=== PATIENT | female | born 1945 ===

== ENCOUNTER 2023-06-08 14:07 | Outpatient (AMB) | payer OTHER, SELFPAY ==
--- NOTE | 2023-06-08 14:08 | A.OFFVIS_ITS ---
Intake Vital Signs 06/08/23 14:25 Weight 153 lb BP 123/59 L Blood Pressure Location Rt brachial Position Sitting Pulse 74 Intake Visit Reasons: umbilical hernia w/out obstruction and gangreen Intake Note: This patient presents for an assessment of an umbilical hernia without obstruction or gangreen. Patient c/o;Onset 2 years ago, umbilical region, occasional vomiting, denies pain. Wire Lather Required: Yes Wire Lather Name: Patient declined color grinder Accompanied by: Daughter Allergies Penicillins Allergy (Severe, Verified 06/08/23 14:27) Rash Medication List - Last Reviewed 06/08/23 by DIXIE Bo albuterol sulfate 90 mcg/actuation 2 puffs inhalation Q4H PRN albuterol sulfate mg inhalation Q4H PRN blood pressure test kit-large As directed diltiazem HCl ER 120 mg PO QAM insulin aspart U-100 (Novolog U-100 Insulin aspart) 7 units subcut BID insulin glargine (Lantus Solostar U-100 Insulin) 25 units subcut BEDTIME levothyroxine 125 mcg PO QAM losartan 50 mg PO DAILY metformin 500 mg PO DAILY pantoprazole 40 mg PO DAILY HPI umbilical hernia w/out obstruction and gangreen HPI Details 77-year-old female referred for an umbilical hernia. The patient says she has notice this umbilical mass for over 2 years now. She does state that this seems to be getting bigger in size. There has been note of some skin changes as well. She admits to occasional discomfort and pain on the area. She actually had been living in [place] but was brought to [place] her daughter to be taken care of. She seems to have some beginning dementia although she is still active and conversant. She denies any cardiac problems. She remains active and ambulates but still bit of difficulty because of arthritis. [facility] Medical History (Updated 06/08/23 @ 14:34 by Mike Penny MD) Arthritis Hypertension Thyroid disease Umbilical hernia Surgical History (Updated 06/08/23 @ 14:30 by DIXIE Bo) History of carpal tunnel surgery History of female sterilization History of shoulder surgery Family History (Updated 06/08/23 @ 14:20 by DIXIE Bo) Other Colon cancer Social History (Updated 06/08/23 @ 14:19 by DIXIE Bo) Alcohol intake: never Patient Tobacco Use Status: Never used Tobacco Review of Systems Const Denies chills and Denies fever(s) Card Denies chest pain, Denies dyspnea and Denies dyspnea on exertion Resp Denies cough, Denies dyspnea and Denies dyspnea on exertion GI Denies hematochezia and Denies change in bowel habits Denies hematuria Musc Denies back pain and Denies limited range of motion Neuro Denies focal weakness and Denies convulsions Psych Denies depression and Denies mood swings Physical Exam Vital Signs: Last Vital Signs Pulse 74 06/08/23 14:25 BP 123/59 L 06/08/23 14:25 Const General: comfortable and no acute distress Orientation/consciousness: patient oriented x3 Neck Neck: Yes no lymphadenopathy Resp Auscultation: clear to auscultation bilaterally Cardio Rhythm: regular rhythm GI Other: Soft, with a large umbilical hernia about 3.5 cm, nontender but with some overlying skin changes, partially reducible Palpation (GI): Soft to palpation, nontender and no guarding Neuro General: patient oriented x3 Assessment & Plan Assessment & Plan (1) Umbilical hernia: Code(s): K42.9 - Umbilical hernia without obstruction or gangrene Plan: She has an umbilical hernia as described above. She has some discomfort and increased in size and there is note of some overlying skin changes. I explained to her the option of proceeding with her umbilical hernia repair with possible mesh. I discussed with her the technique of this procedure. I reviewed the risks including but not limited to bleeding, infections, bowel injury, recurrence, inherent risks of anesthesia, as well as the benefits and alternat karol. She had wanted to proceed. Her daughter was with her during the visit and according to her, she seems to be relatively healthy for her age. Coding Level of Care Code New Pt Level 3 (27632) Diagnoses Umbilical hernia K42.9
[2023-06-08 14:25] VITALS: BP 123/59; PULSE 74
== END 2023-06-08 14:32 | disposition home or self-care (01) ==
PROVIDERS: Visit Provider Surgery
DX: K42.9 Umbilical hernia without obstruction or gangrene (principal)
CPT/HCPCS: 99203

== ENCOUNTER → 2023-06-08 14:07 | Outpatient (BNVA) | payer OTHER, SELFPAY | PROVIDERS: Visit Provider Surgery | DX: K42.9 Umbilical hernia without obstruction or gangrene (principal) | CPT/HCPCS: 99202 ==

== ENCOUNTER 2023-06-12 15:44 | Observation (INO) | payer MEDICARE, OTHER, SELFPAY ==
[2023-06-12] VITALS (10 sets, daily range): BP systolic 110–142; BP diastolic 41–59; PULSE 71–91; RESP 16–20; TEMP 37; O2SAT 95–100
--- NOTE | ~2023-06-12 | XR_ITS ---
EXAMINATION: XR CHEST CLINICAL INFORMATION: Pneumonia COMPARISON: None available. TECHNIQUE: Frontal view of the chest was obtained. FINDINGS: Elevated right hemidiaphragm. No convincing evidence for infiltrate here. The lung gan are grossly clear. The cardiac silhouette is within normal limits for AP projection. Calcification in the aortic arch. No effusion XR/XR chest 1V IMPRESSION: Elevated right hemidiaphragm. No acute finding the lungs.
--- NOTE | 2023-06-12 16:18 | ECG_ITS ---
Test Reason : SYNCOPE Blood Pressure : / mmHG Vent. Rate : 076 BPM Atrial Rate : 076 BPM P-R Int : 156 ms QRS Dur : 066 ms QT Int : 386 ms P-R-T Axes : 052 -04 020 degrees QTc Int : 434 ms Normal sinus rhythm Cannot rule out Anterior infarct , age undetermined Abnormal ECG No previous ECGs available Referred By: Lul Rodrigeuz Electronically Signed By:TONY DIALLO
[2023-06-12 16:40] LABS: MANUAL DIFF FLAG NO
[2023-06-12 16:44] LABS: Basophils Percent Auto 0.3 % (0-2); Eosinophils Absolute Auto 0.1 X10*3/uL (0.0-0.4); Eosinophils Percent Auto 0.5 % (0-4); Hemoglobin 11.4 g/dl (12.0-16.0); Imm Gran Abs Auto 0.06 X10*3/uL (0.00-0.03); Imm Gran Pct Auto 0.6 % (0.0-0.4); Lymphocytes Absolute Auto 1.7 X10*3/uL (1.2-4.9); Lymphocytes Percent Auto 17.2 % (20-40); Mean Corpuscular HGB Conc 32.6 g/dl (31.0-35.0); Mean Corpuscular Hemoglobin 26.8 pg (27.0-33.0); Mean Corpuscular Volume 82.4 fL (80.0-98.0); Mean Platelet Volume 9.2 fL (9.4-12.3); Monocytes Absolute Auto 0.7 X10*3/uL (0.1-1.2); Monocytes Percent Auto 7.6 % (2-11); Neutrophils Absolute Auto 7.1 x10*3/uL (2.0-8.3); Neutrophils Percent Auto 73.8 % (45-73); Platelet Count 310 X10*3/uL (160-400); Red Blood Count 4.25 X10*6/uL (4.20-5.50); Red Cell Distribution Width 14.3 % (11.0-16.0); White Blood Count 9.6 X10*3/uL (4.8-10.8)
[2023-06-12 16:53] LABS: Prothrombin Time 12.5 SEC (11.1-13.3)
[2023-06-12 16:56] LABS: Partial Thromboplastin Time 30.4 SEC (26.0-36.4)
[2023-06-12 16:59] LABS: Alanine Aminotransferase 7 U/L (0-31); Albumin Level 3.5 g/dL (3.5-5.0); Alkaline Phosphatase 76 U/L (39-117); Anion Gap 18 (12-20); Aspartate Amino Transferase 11 U/L (5-31); Bilirubin Total 0.3 mg/dL (0.0-1.0); Blood Urea Nitrogen 18 mg/dL (9-16); Calcium 9.8 mg/dL (8.4-10.2); Carbon Dioxide 17 mmol/L (22-29); Chloride 102 mmol/L (96-108); Creatinine Clr Calc Pharmacy 52.8; Estimated Glomerular Filt Rate > 60; Glucose Random 159 mg/dL (60-115); Potassium 4.2 mmol/L (3.3-5.1); Sodium 133 mmol/L (135-145); Total Protein 6.8 g/dL (6.5-8.0)
[2023-06-12 17:05] LABS: B Type Natriuretic Peptide 84 pg/mL (<100)
[2023-06-12] MEDS: 0.9 % Sodium Chloride 1,000 ML 999 ML IV (17:15)
[2023-06-12 17:25] LABS: Glucose, Whole Blood 154 mg/dL (60-115)
--- NOTE | 2023-06-12 17:56 | ED.GENADULT ---
HPI - General Adult General Chief complaint: Syncope Stated complaint: SYNCOPAL EPISODE Time Seen by Provider: 06/12/23 16:18 Source: patient and family (Daughter) Mode of arrival: ambulatory Limitations: no limitations History of Present Illness HPI narrative: 77-year-old female with pmh of DM, hypothryoid, asthma, and cholesterol presents to the ED for syncopal episode. Daughter states her and patient were shopping at [employer] and than patient stated she did not feel good and than passed out. patient states she caughter mother and slowyl brought her to the the ground. Daughter states patient did not her hit her head on the ground. Daughter denies any she has activity. Patient presently states she is asymptomatic and feels well. Daughter and patient states she did eat breakfast was drinking water. Patient denies having any chest pain, abdominal pain, or headache before passing out Related Data Home Medications Medication Instructions Recorded Confirmed albuterol sulfate 2.5 mg/3 mL mg inhalation Q4H PRN wheezing 06/08/23 06/08/23 (0.083 %) solution for nebulization albuterol sulfate 90 mcg/actuation 2 puff inhalation Q4H PRN 06/08/23 06/08/23 aerosol inhaler blood pressure test kit-large #1 ea 06/08/23 06/08/23 diltiazem HCl 120 mg capsule,24 120 mg PO QAM 06/08/23 06/08/23 hr,extended release insulin aspart U-100 100 unit/mL 7 unit subcut BID 06/08/23 subcutaneous solution (Novolog U-100 Insulin aspart) insulin glargine 100 unit/mL (3 25 unit subcut BEDTIME 06/08/23 mL) subcutaneous pen (Lantus Solostar U-100 Insulin) levothyroxine 125 mcg tablet 125 mcg PO QAM 06/08/23 06/08/23 losartan 50 mg tablet 50 mg PO DAILY 06/08/23 06/08/23 metformin 500 mg tablet 500 mg PO DAILY 06/08/23 pantoprazole 40 mg tablet,delayed 40 mg PO DAILY 06/08/23 06/08/23 release Allergies Allergy/AdvReac Type Severity Reaction Status Date / Time Penicillins Allergy Severe Rash Verified 06/08/23 14:27 Review of Systems Review of Systems: syconpe Yes all other systems are reviewed and are negative [facility] Past Medical History Medical History (Updated 06/13/23 @ 01:05 by KATIE Crenshaw) Arthritis Hypertension Thyroid disease Umbilical hernia Surgical History (Updated 06/08/23 @ 14:30 by DIXIE Bo) History of carpal tunnel surgery History of female sterilization History of shoulder surgery Family History Family History (Updated 06/08/23 @ 14:20 by DIXIE Bo) Other Colon cancer Social History Social History (Updated 06/08/23 @ 14:19 by DIXIE Bo) Alcohol intake: never Patient Tobacco Use Status: Never used Tobacco Smoked in Last 30 Days: No Use of substances other than those prescribed or required for medical reasons: No Advance Directives: No Advance Directives Information Provided: No Physical Exam ED Vital Signs: Vital Signs - 24 hr 06/12/23 15:50 06/12/23 15:54 06/12/23 16:36 Temperature 98.6 F Pulse Rate 75 71 Respiratory Rate 18 Blood Pressure 115/41 L 110/48 L Pulse Oximetry 98 Oxygen Delivery Method Room Air 06/12/23 16:37 06/12/23 16:39 06/12/23 18:39 Temperature 98.6 F Pulse Rate 82 81 73 Respiratory Rate 18 Blood Pressure 117/42 L 116/44 L 141/59 H Pulse Oximetry 98 Oxygen Delivery Method Room Air 06/12/23 19:10 06/12/23 21:03 06/12/23 21:04 Temperature Pulse Rate 80 86 Respiratory Rate 16 18 Blood Pressure 134/49 L 142/56 H Pulse Oximetry 96 95 96 Oxygen Delivery Method Room Air Room Air Room Air BMI result Body Mass Index 30.0 Const General: cooperative, healthy appearing, comfortable, no acute distress, well developed, alert, awake and Physically active Orientation/consciousness: oriented to person, oriented to place, oriented to time and patient oriented x3 HENMT Head: Yes normal to inspection, Yes No palpable skull fracture present, Yes normocephalic, Yes atraumatic and No abrasion Ears: hearing grossly normal bilaterally, external ears normal, TM's normal bilaterally, TM normal on the right, TM normal on the left, EAC's normal, mastoids normal and no periauricular adenopathy Eyes General: appearance normal, both eyes and all related structures Neck Neck: Yes normal visual inspection, Yes full ROM, Yes no lymphadenopathy, Yes no meningeal signs, Yes trachea midline, Yes supple, No anterior neck swelling and No tender Chest Chest palpation & inspection: normal inspection of the chest and normal palpation of entire chest wall Resp Effort & Inspection: normal respiratory effort and able to speak in complete sentences Auscultation: clear to auscultation bilaterally Cardio Jugular venous distension: no JVD Heart sounds: S1 normal heart sound present and S2 normal heart sound present GI Inspection: Yes normal to inspection and No abdominal wall ecchymosis Palpation (GI): Soft to palpation, not firm, nontender, no guarding and not rigid General: No CVA tenderness and Yes no CVA tenderness Back/Spine/Pelvis Back: no CVA tenderness, No CVA tenderness and No back tenderness Skin General skin exam: no rashes or lesions noted and elasticity normal Neuro General: oriented to person, oriented to place, oriented to time, patient oriented x3, gait normal, tone normal, moves all extremities, Normal light touch and pain sensation, no meningeal signs, no focal motor deficits, CN's II-XI intact bilaterally and normal sensation to monofilament Extrem General: Yes normal to inspection and Yes full ROM Psych Appearance: grossly normal, well kempt and not disheveled Medications Administered Generic Name Dose Route Start Last Admin Trade Name Freq PRN Reason Stop Dose Admin Enoxaparin Sodium 40 mg 06/12/23 22:00 06/12/23 22:17 Enoxaparin Sodium 40 Mg/0.4 Ml Syringe SUBCUT 40 mg Q24H YAMEL Administration Sodium Chloride 1,000 mls @ 100 mls/hr 06/12/23 21:30 06/12/23 22:12 Ns IVCONT 100 mls/hr .Q10H YAMEL Administration Discontinued Medications Generic Name Dose Route Start Last Admin Trade Name Freq PRN Reason Stop Dose Admin Sodium Chloride 1,000 mls @ 999 mls/hr 06/12/23 16:18 06/12/23 22:11 Ns IV 06/12/23 17:18 Infused .Q1H1M STA Infusion Medical Decision Making Medical Decision Making [place] Narrative: And the 7 year female presents to the ED for syncope. Patient syncopized in from the daughter. Daughter called mother before she fell to the ground. Daughter denies patient hitting her head on the ground having any seizure activity. Initial medical workup normal. Patient to be admitted for syncope. No signs of infection. Neuro exam intact Differential Diagnosis Differential Diagnoses: The differential diagnosis associated with the presentation includes (Myocardial infarction, dehydration, pneumonia UTI anemia, stroke,PE) Admission/Observation Consideration of admission/observation: Escalation of care including admission/observation considered Consult Healthcare Provider Management of the patient was discussed with: Enchilada Maker ( [facility]) Lab Data MDM Lab Attestation statement: I reviewed the patient's lab results. 06/12/23 16:35 06/12/23 16:35 Labs: Lab Results 06/12/23 06/12/23 06/12/23 Range/Units 16:35 16:35 16:35 WBC 9.6 (4.8-10.8) X10*3/uL RBC 4.25 (4.20-5.50) X10*6/uL Hgb 11.4 L (12.0-16.0) g/dl Hct 35.0 L (37.0-47.0) % MCV 82.4 (80.0-98.0) fL MCH 26.8 L (27.0-33.0) pg MCHC 32.6 (31.0-35.0) g/dl RDW 14.3 (11.0-16.0) % Plt Count 310 (160-400) X10*3/uL MPV 9.2 L (9.4-12.3) fL Immature Gran % (Auto) 0.6 H (0.0-0.4) % Neut % (Auto) 73.8 H (45-73) % Lymph % (Auto) 17.2 L (20-40) % [place] % (Auto) 7.6 (2-11) % Eos % (Auto) 0.5 (0-4) % Baso % (Auto) 0.3 (0-2) % Lymph # (Auto) 1.7 (1.2-4.9) X10*3/uL [place] # (Auto) 0.7 (0.1-1.2) X10*3/uL Eos # (Auto) 0.1 (0.0-0.4) X10*3/uL Baso # (Auto) 0.0 (0.0-0.2) X10*3/uL Abs Immat Gran (auto) 0.06 H (0.00-0.03) X10*3/uL Absolute Neuts (auto) 7.1 (2.0-8.3) x10*3/uL Absolute Nucleated RBC 0.000 (0.0-0.012) X10*3/uL Nucleated RBC % (auto) 0.0 (0.0-0.2) /100WBC PT 12.5 (11.1-13.3) SEC INR 1.0 (0.9-1.1) APTT 30.4 (26.0-36.4) SEC Sodium 133 L (135-145) mmol/L Potassium 4.2 (3.3-5.1) mmol/L Chloride 102 (96-108) mmol/L Carbon Dioxide 17 L (22-29) mmol/L Anion Gap 18 (12-20) BUN 18 H (9-16) mg/dL Creatinine 0.81 (0.5-1.4) mg/dL Estim Creat Clear Calc 52.8 Estimated GFR > 60 POC Glucose (60-115) mg/dL Random Glucose 159 H (60-115) mg/dL Calcium 9.8 (8.4-10.2) mg/dL Total Bilirubin 0.3 (0.0-1.0) mg/dL AST 11 (5-31) U/L ALT 7 (0-31) U/L Alkaline Phosphatase 76 (39-117) U/L Troponin I High Sens (<3.5-17.0) ng/L B-Natriuretic Peptide (<100) pg/mL Total Protein 6.8 (6.5-8.0) g/dL Albumin 3.5 (3.5-5.0) g/dL Urine Color Urine Appearance Urine pH (5.0-9.0) Ur Specific [place] (1.005-1.025) Urine Protein (Neg-Trace) mg/dL Urine Glucose (UA) (Negative) mg/dL Urine Ketones (Negative) mg/dL Urine Blood (Negative) Urine Nitrite (Negative) Ur Leukocyte Esterase (Negative) Urine RBC (0-2) /HPF Urine WBC (0-5) /HPF Ur Squamous Epith Cells (0-2) /HPF Urine Bacteria (None Seen) Hyaline Casts (0-2) /LPF 06/12/23 06/12/23 06/12/23 Range/Units 16:35 16:35 17:21 WBC (4.8-10.8) X10*3/uL RBC (4.20-5.50) X10*6/uL Hgb (12.0-16.0) g/dl Hct (37.0-47.0) % MCV (80.0-98.0) fL MCH (27.0-33.0) pg MCHC (31.0-35.0) g/dl RDW (11.0-16.0) % Plt Count (160-400) X10*3/uL MPV (9.4-12.3) fL Immature Gran % (Auto) (0.0-0.4) % Neut % (Auto) (45-73) % Lymph % (Auto) (20-40) % [place] % (Auto) (2-11) % Eos % (Auto) (0-4) % Baso % (Auto) (0-2) % Lymph # (Auto) (1.2-4.9) X10*3/uL [place] # (Auto) (0.1-1.2) X10*3/uL Eos # (Auto) (0.0-0.4) X10*3/uL Baso # (Auto) (0.0-0.2) X10*3/uL Abs Immat Gran (auto) (0.00-0.03) X10*3/uL Absolute Neuts (auto) (2.0-8.3) x10*3/uL Absolute Nucleated RBC (0.0-0.012) X10*3/uL Nucleated RBC % (auto) (0.0-0.2) /100WBC PT (11.1-13.3) SEC INR (0.9-1.1) APTT (26.0-36.4) SEC Sodium (135-145) mmol/L Potassium (3.3-5.1) mmol/L Chloride (96-108) mmol/L Carbon Dioxide (22-29) mmol/L Anion Gap (12-20) BUN (9-16) mg/dL Creatinine (0.5-1.4) mg/dL Estim Creat Clear Calc Estimated GFR POC Glucose 154 H (60-115) mg/dL Random Glucose (60-115) mg/dL Calcium (8.4-10.2) mg/dL Total Bilirubin (0.0-1.0) mg/dL AST (5-31) U/L ALT (0-31) U/L Alkaline Phosphatase (39-117) U/L Troponin I High Sens 5.0 (<3.5-17.0) ng/L B-Natriuretic Peptide 84 (<100) pg/mL Total Protein (6.5-8.0) g/dL Albumin (3.5-5.0) g/dL Urine Color Urine Appearance Urine pH (5.0-9.0) Ur Specific [place] (1.005-1.025) Urine Protein (Neg-Trace) mg/dL Urine Glucose (UA) (Negative) mg/dL Urine Ketones (Negative) mg/dL Urine Blood (Negative) Urine Nitrite (Negative) Ur Leukocyte Esterase (Negative) Urine RBC (0-2) /HPF Urine WBC (0-5) /HPF Ur Squamous Epith Cells (0-2) /HPF Urine Bacteria (None Seen) Hyaline Casts (0-2) /LPF 06/12/23 06/12/23 Range/Units 19:50 19:55 WBC (4.8-10.8) X10*3/uL RBC (4.20-5.50) X10*6/uL Hgb (12.0-16.0) g/dl Hct (37.0-47.0) % MCV (80.0-98.0) fL MCH (27.0-33.0) pg MCHC (31.0-35.0) g/dl RDW (11.0-16.0) % Plt Count (160-400) X10*3/uL MPV (9.4-12.3) fL Immature Gran % (Auto) (0.0-0.4) % Neut % (Auto) (45-73) % Lymph % (Auto) (20-40) % [place] % (Auto) (2-11) % Eos % (Auto) (0-4) % Baso % (Auto) (0-2) % Lymph # (Auto) (1.2-4.9) X10*3/uL [place] # (Auto) (0.1-1.2) X10*3/uL Eos # (Auto) (0.0-0.4) X10*3/uL Baso # (Auto) (0.0-0.2) X10*3/uL Abs Immat Gran (auto) (0.00-0.03) X10*3/uL Absolute Neuts (auto) (2.0-8.3) x10*3/uL Absolute Nucleated RBC (0.0-0.012) X10*3/uL Nucleated RBC % (auto) (0.0-0.2) /100WBC PT (11.1-13.3) SEC INR (0.9-1.1) APTT (26.0-36.4) SEC Sodium (135-145) mmol/L Potassium (3.3-5.1) mmol/L Chloride (96-108) mmol/L Carbon Dioxide (22-29) mmol/L Anion Gap (12-20) BUN (9-16) mg/dL Creatinine (0.5-1.4) mg/dL Estim Creat Clear Calc Estimated GFR POC Glucose (60-115) mg/dL Random Glucose (60-115) mg/dL Calcium (8.4-10.2) mg/dL Total Bilirubin (0.0-1.0) mg/dL AST (5-31) U/L ALT (0-31) U/L Alkaline Phosphatase (39-117) U/L Troponin I High Sens 3.9 (<3.5-17.0) ng/L B-Natriuretic Peptide (<100) pg/mL Total Protein (6.5-8.0) g/dL Albumin (3.5-5.0) g/dL Urine Color Yellow Urine Appearance Clear Urine pH 6.0 (5.0-9.0) Ur Specific [place] <= 1.005 (1.005-1.025) Urine Protein Negative (Neg-Trace) mg/dL Urine Glucose (UA) Negative (Negative) mg/dL Urine Ketones Negative (Negative) mg/dL Urine Blood Negative (Negative) Urine Nitrite Negative (Negative) Ur Leukocyte Esterase Trace H (Negative) Urine RBC 0-2 (0-2) /HPF Urine WBC 0-5 (0-5) /HPF Ur Squamous Epith Cells 0-2 (0-2) /HPF Urine Bacteria None Seen (None Seen) Hyaline Casts 0-2 (0-2) /LPF Independent Interpretation I performed an independent interpretation of an: EKG (Normal sinus rhythm. Ventricular rate 76. Pr interval 156. QRS 66 pr QTC. negative STEMI) and Plain X-Ray Radiology Impression Discussion of test interpretation with radiology: I have reviewed the radiologist's reading. Independent Historian Clinical information obtained from an independent historian. History obtained from or confirmed by: Other (Daughter) External Record Review External record reviewed: Other (Prior ED visit) Discharge Plan Discharge Clinical Impression: Syncope Patient Disposition: Admitted As Inpatient
[2023-06-12 20:01] LABS: Appearance Urine Clear; Color Urine Yellow; Glucose Urine UA Negative (Negative); Leukocyte Esterase Urine Trace (Negative); Nitrite Urine Negative (Negative); Specific Gravity - Urine <= 1.005 (1.005-1.025); UMIC TRIGGER UACC YES; Urine Blood Negative (Negative); Urine Ketones Negative (Negative); Urine Protein Negative (Neg-Trace)
[2023-06-12 20:25] LABS: Troponin-I High Sensitivity 3.9 ng/L (<3.5-17.0)
[2023-06-12 20:31] LABS: Bacteria Urine None Seen (None Seen); Hyaline Casts Urine 0-2 /LPF (0-2); RBC Urine 0-2 /HPF (0-2); Squamous Epithelial Cell Urine 0-2 /HPF (0-2); WBC Urine 0-5 /HPF (0-5)
--- NOTE | 2023-06-12 20:35 | P.HPHOSP_ITS ---
Patient seen and examined at bedside. I agree with BAKARI. patient comes in with syncope. After reviewing symptoms and signs patient likely had a vasovagal syncope. Will admit to telemetry. For full H&P please see below History of Present Illness Date of Service: 06/12/23 Attending physician on admission: Orly Hialrio Chief Complaint: Syncope Pt is a 77-year-old female with a PMH significant for?insulin-dependent diabetes type 2, hypothyroidism, HTN, umbilical hernia, and mild intermittent asthma who presents to the ED after having a syncopal episode. Patient and her daughter were out shopping early in the afternoon, 1st at [employer] and then at [employer] where the patient began to ?feel unwell.? [place] hot, dizzy, and sweaty. Daughter says that the patient's face became pale and she then fainted. Daughter was by her side and her, gently lowing her to the ground. Denies any head strike. Staff at the store immediately called for an ambulance. Patient had LOC for approximately 2-3 minutes and then awoke slightly confused; confusion lasted another 2-3 minutes before patient began to recover. Patient's daughter denies any seizure-like activity or postictal phase. No loss of bowel or bladder function. Patient denies chest pain/pressure, palpitations. No hortencia rtness of breath. Denies headache or vision changes. Patient denies fever, chills, nausea, vomiting, diarrhea, abdominal pain. No recent illnesses or GI losses from vomiting or diarrhea. Daughter denies mother has any significant cardiology history, though reports remembering her mother suffering from ?angina pectoralis? many decades ago in [place]. Daughter also notes that patient has been having mild dementia-like symptoms for the past year such as short-term memory loss, forgetting names, mis-identifying family members. Patient has been eating well but not drinking much in the way of fluids. Patient currently has no acute medical complaints, says she is back to baseline and feels fine. In the ED patient was afebrile but slightly hypotensive as low as 115/41. Labs were largely reassuring: significant for H&H of 11.4/35.0, POC 154. Coags WNL. Renal function baseline. Hepatic function baseline. BNP WNL at 84. Troponins negative at 5.0 with repeat 3.9. UA negative for UTI. CXR showed elevated right hemidiaphragm but no acute findings in the lungs. EKG demonstrated normal sinus rhythm without evidence of acute ischemia. Pt was treated with IVF. Pt will be admitted to the hospital under observation for further evaluation of syncope. Review of Systems Review of Systems: Syncopal episode Prodrome of lightheadedness, dizziness, diaphoresis Denies head strike No headache, vision changes Denies chest pain/pressure, palpitations No shortness of breath Denies fever, chills, nausea, vomiting, abdominal pain No recent illnesses Yes all other systems are reviewed and are negative [facility] Medical History (Updated 06/12/23 @ 21:32 by KATIE Rouse) Arthritis Hypertension Thyroid disease Umbilical hernia Family History (Updated 06/08/23 @ 14:20 by DIXIE Bo) Other Colon cancer Surgical History (Updated 06/08/23 @ 14:30 by DIXIE Bo) History of carpal tunnel surgery History of female sterilization History of shoulder surgery Social History (Updated 06/08/23 @ 14:19 by DIXIE Bo) Alcohol intake: never Patient Tobacco Use Status: Never used Tobacco Smoked in Last 30 Days: No Use of substances other than those prescribed or required for medical reasons: No Advance Directives: No Advance Directives Information Provided: No Meds Allergies Allergy/AdvReac Type Severity Reaction Status Date / Time Penicillins Allergy Severe Rash Verified 06/08/23 14:27 Home Medications Medication Instructions Recorded Confirmed Last Taken Type albuterol sulfate 2.5 mg/3 mL mg inhalation Q4H PRN wheezing 06/08/23 06/08/23 Unknown History (0.083 %) solution for nebulization albuterol sulfate 90 mcg/actuation 2 puff inhalation Q4H PRN 06/08/23 06/08/23 Unknown History aerosol inhaler blood pressure test kit-large #1 ea 06/08/23 06/08/23 Unknown History diltiazem HCl 120 mg capsule,24 120 mg PO QAM 06/08/23 06/08/23 Unknown History hr,extended release insulin aspart U-100 100 unit/mL 7 unit subcut BID 06/08/23 Unknown History subcutaneous solution (Novolog U-100 Insulin aspart) insulin glargine 100 unit/mL (3 25 unit subcut BEDTIME 06/08/23 Unknown History mL) subcutaneous pen (Lantus Solostar U-100 Insulin) levothyroxine 125 mcg tablet 125 mcg PO QAM 06/08/23 06/08/23 Unknown History losartan 50 mg tablet 50 mg PO DAILY 06/08/23 06/08/23 Unknown History metformin 500 mg tablet 500 mg PO DAILY 06/08/23 Unknown History pantoprazole 40 mg tablet,delayed 40 mg PO DAILY 06/08/23 06/08/23 Unknown History release Physical Exam Vital Signs and Narrative: Vital Signs: Last Vital Signs Temp 98.6 F 06/12/23 18:39 Pulse 80 06/12/23 19:10 Resp 16 06/12/23 19:10 BP 134/49 L 06/12/23 19:10 Pulse Ox 96 06/12/23 19:10 O2 Del Method Room Air 06/12/23 19:10 BMI result Body Mass Index 30.0 General: AOx3, no acute distress Resp: CTA bilaterally CVS: S1, S2, RRR GI: +BS, NT, no distention, non-tender umbilical hernia Skin: No rash Neuro: Cranial nerves II-XII grossly intact bilaterally. Motor grossly intact bilaterally Extremities: No edema Psych: Appropriate affect Results Labs 06/12/23 16:35 06/12/23 16:35 Labs: Laboratory Results - last 24 hr 06/12/23 06/12/23 06/12/23 16:35 16:35 16:35 MCV 82.4 MCH 26.8 L MCHC 32.6 RDW 14.3 Plt Count 310 MPV 9.2 L Immature Gran % (Auto) 0.6 H Neut % (Auto) 73.8 H Lymph % (Auto) 17.2 L [place] % (Auto) 7.6 Eos % (Auto) 0.5 Baso % (Auto) 0.3 Lymph # (Auto) 1.7 [place] # (Auto) 0.7 Eos # (Auto) 0.1 Baso # (Auto) 0.0 Abs Immat Gran (auto) 0.06 H Absolute Neuts (auto) 7.1 Absolute Nucleated RBC 0.000 Nucleated RBC % (auto) 0.0 PT 12.5 INR 1.0 APTT 30.4 Anion Gap 18 Estim Creat Clear Calc 52.8 Estimated GFR > 60 POC Glucose Random Glucose 159 H Calcium 9.8 Total Bilirubin 0.3 AST 11 ALT 7 Alkaline Phosphatase 76 B-Natriuretic Peptide Total Protein 6.8 Albumin 3.5 Urine Color Urine Appearance Urine pH Ur Specific [place] Urine Protein Urine Glucose (UA) Urine Ketones Urine Blood Urine Nitrite Ur Leukocyte Esterase Urine RBC Urine WBC Ur Squamous Epith Cells Urine Bacteria Hyaline Casts 06/12/23 06/12/23 06/12/23 16:35 17:21 19:50 MCV MCH MCHC RDW Plt Count MPV Immature Gran % (Auto) Neut % (Auto) Lymph % (Auto) [place] % (Auto) Eos % (Auto) Baso % (Auto) Lymph # (Auto) [place] # (Auto) Eos # (Auto) Baso # (Auto) Abs Immat Gran (auto) Absolute Neuts (auto) Absolute Nucleated RBC Nucleated RBC % (auto) PT INR APTT Anion Gap Estim Creat Clear Calc Estimated GFR POC Glucose 154 H Random Glucose Calcium Total Bilirubin AST ALT Alkaline Phosphatase B-Natriuretic Peptide 84 Total Protein Albumin Urine Color Yellow Urine Appearance Clear Urine pH 6.0 Ur Specific [place] <= 1.005 Urine Protein Negative Urine Glucose (UA) Negative Urine Ketones Negative Urine Blood Negative Urine Nitrite Negative Ur Leukocyte Esterase Trace H Urine RBC 0-2 Urine WBC 0-5 Ur Squamous Epith Cells 0-2 Urine Bacteria None Seen Hyaline Casts 0-2 Imaging Radiologist's Impressions: Impressions Chest X-Ray 06/12/23 17:42 IMPRESSION: Elevated right hemidiaphragm. No acute finding the lungs. Assessment and Plan (1) Syncope: Status: Acute Plan Pt is a 77-year-old female with a PMH significant for?insulin-dependent diabetes type 2, hypothyroidism, HTN, umbilical hernia, and mild intermittent asthma who presents to the ED after having a syncopal episode. Pt will be admitted to the hospital under observation for further evaluation of syncope. Syncopal episode Most likely vasovagal: prodrome of lightheadedness, dizziness, diaphoresis, pt walking much more than normal, decreased p.o. intake of fluids Less likely cardiogenic or seizure Orthostatics negative, random glucose [address] on maintenance fluids Monitor on telemetry Hyponatremia Patient's sodium mildly low at 133 Received IVF normal saline in the ED, will place on maintenance fluids Follow BMP Insulin-dependent diabetes type 2 Hold home meds Sliding-scale insulin, Lantus Diabetic diet GERD Continue pantoprazole HTN Will resume home meds tomorrow as BP allows Mild intermittent asthma Not in acute exacerbation Continue home inhalers Hypothyroidism Continue levothyroxine DNR/DNI Attending:?Dr. Hilario DVT Prophylaxis: Lovenox Patient be admitted to the hospital under observation for further evaluation of syncope. Time Spent With Patient Time: Total time managing care of this patient today ____ minutes. Quality Stroke Does the patient have a stroke diagnosis?: No VTE Prior VTE?: No VTE Risk Level:: Medical - moderate - high VTE Device Contraindication: Treatment Not Indicated VTE Drug Contraindication: N/A - Med Ordered
[2023-06-12 21:27] LABS: COVID-19 Test Negative (Negative); IDNOW Serial# 08D9AD1C
[2023-06-12] MEDS: 0.9 % Sodium Chloride 1,000 ML 100 ML IVCONT (22:12)
[2023-06-12] MEDS: Enoxaparin Sodium 40 MG/0.4 ML SYRINGE SUBCUT (22:17)
[2023-06-13 01:02] VITALS: BP 144/71; PULSE 78; RESP 26; TEMP 36.8; O2SAT 96
--- NOTE | 2023-06-13 05:19 | PC.NURSE ---
Pt resting quietly at this time. Respirations even and unlabored. No acute distress noted.
[2023-06-13 05:20] LABS: Hematocrit 33.6 % (37.0-47.0); Hemoglobin 10.7 g/dl (12.0-16.0); Mean Corpuscular HGB Conc 31.8 g/dl (31.0-35.0); Mean Corpuscular Hemoglobin 26.5 pg (27.0-33.0); Mean Corpuscular Volume 83.2 fL (80.0-98.0); Mean Platelet Volume 9.7 fL (9.4-12.3); Platelet Count 313 X10*3/uL (160-400); Red Blood Count 4.04 X10*6/uL (4.20-5.50); Red Cell Distribution Width 14.6 % (11.0-16.0); White Blood Count 7.4 X10*3/uL (4.8-10.8)
[2023-06-13 05:35] LABS: Anion Gap 15 (12-20); Blood Urea Nitrogen 12 mg/dL (9-16); Calcium 9.1 mg/dL (8.4-10.2); Carbon Dioxide 19 mmol/L (22-29); Chloride 108 mmol/L (96-108); Estimated Glomerular Filt Rate > 60; Glucose Random 173 mg/dL (60-115); Potassium 4.3 mmol/L (3.3-5.1); Sodium 138 mmol/L (135-145)
[2023-06-13 06:32] VITALS: BP 145/61; PULSE 75; RESP 22; O2SAT 96
[2023-06-13 06:56] LABS: Glucose, Whole Blood 165 mg/dL (60-115)
[2023-06-13] MEDS: Insulin Lispro 100 UNIT/ML 3 ML VIAL SUBCUT (07:12)
--- NOTE | 2023-06-13 08:15 | PHA.MEDREC ---
Pharmacy Consult ? Medication Reconciliation Pharmacy has completed the medication reconciliation. Spoke with patients daughter. She explained patient has been out of refills for her insulins and [facility] has not gotten them., however patient is to be on both insulins
[2023-06-13 08:41] VITALS: BP 128/56; PULSE 75; RESP 18; O2SAT 98
[2023-06-13] MEDS: 0.9 % Sodium Chloride Flush 3 ML SYRINGE IVFLUSH (09:04)
--- NOTE | 2023-06-13 09:47 | MHC.CM.PN ---
Met with patient and daughter, Mildred, in regards to discharge planning. Patient is primarily Azeri speaking. Patient's daughter speaks Kinyarwanda. 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 Patient lives with Mildred, ambulates with a cane, and had no services prior to coming to the hospital. PCp verified as Edna Norris. Patient denies having a HCP. Information provided. Patient declining to complete one at this time. Patient received 4 Covid vaccines but doesn't remember which brand. Obs notice explained and signed. Mildred will transport patient home. Continue to monitor for d/c needs.
--- NOTE | 2023-06-13 11:29 | PM.DS ---
DS: Providers Provider Date of Service: 06/13/23 Date of admission: 06/12/23 21:11 Primary care physician: ANGELINE Robertson DS: Diagnosis Discharge Diagnosis (1) Syncope: Status: Acute DS: Summary Hospital Course Hospital Course: Date of Service: 06/12/23 Attending physician on admission: Orly Hilario Chief Complaint: Syncope Pt is a 77-year-old female with a PMH significant for?insulin-dependent diabetes type 2, hypothyroidism, HTN, umbilical hernia, and mild intermittent asthma who presents to the ED after having a syncopal episode.? Patient and her daughter were out shopping early in the afternoon, 1st at [employer] and then at [email or web address] where the patient began to ?feel unwell.?? [place] hot, dizzy, and sweaty.? Daughter says that the patient's face became pale and she then fainted.? Daughter was by her side and her, gently lowing her to the ground.? Denies any head strike.? Staff at the store immediately called for an ambulance.? Patient had LOC for approximately 2-3 minutes and then awoke slightly confused; confusion lasted another 2-3 minutes before patient began to recover.? Patient's daughter denies any seizure-like activity or postictal phase.? No loss of bowel or bladder function.? Patient denies chest pain/pressure, palpitations.? No shortness of breath.? Denies headache or vision changes.? Patient denies fever, chills, nausea, vomiting, diarrhea, abdominal pain.? No recent illnesses or GI losses from vomiting or diarrhea. Daughter denies mother has any significant cardiology history, though reports remembering her mother suffering from ?angina pectoralis? many decades ago in [place]. Daughter also notes that patient has been having mild dementia-like symptoms for the past year such as short-term memory loss, forgetting names, mis-identifying family members.? Patient has been eating well but not drinking much in the way of fluids. Patient currently has no acute medical complaints, says she is back to baseline and feels fine. In the ED patient was afebrile but slightly hypotensive as low as 115/41. Labs were largely reassuring:? significant for H&H of 11.4/35.0, POC 154. Coags WNL.? Renal function baseline.? Hepatic function baseline.? BNP WNL at 84.? Troponins negative at 5.0 with repeat 3.9.? UA negative for UTI.? CXR showed elevated right hemidiaphragm but no acute findings in the lungs. EKG demonstrated normal sinus rhythm without evidence of acute ischemia. Pt was treated with IVF. Pt will be admitted to the hospital under observation for further evaluation of syncope. Hospital course: 77-year-old female with a PMH significant for?insulin-dependent diabetes type 2, hypothyroidism, HTN, umbilical hernia, and mild intermittent asthma who presents to the ED after having a syncopal episode. Pt will be admitted to the hospital under observation for further evaluation of syncope. Syncopal episode likely vasovagal, orthostatic blood pressures stable, normal blood sugars, treated with IV fluid, patient asymptomatic, no recurrent episode of lightheadedness ,or dizziness, tele monitor showed normal sinus rhythm, no evidence of infection. normally EKG and troponins patient is being discharged home with recommendation to follow-up BP closely follow diabetic diet. Hyponatremia likely due to dehydration improved with IV fluids Insulin-dependent diabetes type 2 blood sugars stable taking metformin at home and has not used insulin in last 2 months recommend to increase dose of metformin to 500 mg b.i.d. maintain blood sugar record and follow-up with PCP to assess need for Lantus check hemoglobin A1c. GERD Continue pantoprazole HTN blood pressure soft on admission, and remained stable without blood pressure medication therefore will dc losartan Mild intermittent asthma Not in acute exacerbation,Continue home inhalers Hypothyroidism Continue levothyroxine Time Spent with Patient Time attestation: Total time managing care of this patient today ____ minutes. Discharge coordination time: Greater than 30 minutes Quality: Safe Use of Opioids Does Pt have an Active Cancer Diagnosis on the Problem List?: No Quality: Stroke Does the patient have a stroke diagnosis?: No Physical Exam Vital Signs: Vital Signs: Last Vital Signs Temp 98.2 F 06/13/23 01:02 Pulse 75 06/13/23 08:41 Resp 18 06/13/23 08:41 BP 128/56 L 06/13/23 08:41 Pulse Ox 98 06/13/23 08:41 O2 Del Method Room Air 06/13/23 08:41 BMI result Body Mass Index 30.0 Const: Other: General resting comfortably in no acute distress. Neck supple no JVD. CVS regular rate rhythm, Respiratory lungs clear to auscultation, no respiratory distress, no wheeze, no rhonchi. Gastrointestinal abdomen soft, non tender, bowel sounds audible, no guarding , no rigidity. Extremities no edema. Neuro nonfocal, moving all 4 extremity speech clear. Skin no rash DS: Data Data Completed and Pending Labs on day of discharge: Laboratory Results - last 24 hr 06/12/23 06/12/23 06/12/23 16:35 16:35 16:35 WBC 9.6 RBC 4.25 Hgb 11.4 L Hct 35.0 L MCV 82.4 MCH 26.8 L MCHC 32.6 RDW 14.3 Plt Count 310 MPV 9.2 L Immature Gran % (Auto) 0.6 H Neut % (Auto) 73.8 H Lymph % (Auto) 17.2 L [place] % (Auto) 7.6 Eos % (Auto) 0.5 Baso % (Auto) 0.3 Lymph # (Auto) 1.7 [place] # (Auto) 0.7 Eos # (Auto) 0.1 Baso # (Auto) 0.0 Abs Immat Gran (auto) 0.06 H Absolute Neuts (auto) 7.1 Absolute Nucleated RBC 0.000 Nucleated RBC % (auto) 0.0 PT 12.5 INR 1.0 APTT 30.4 Sodium 133 L Potassium 4.2 Chloride 102 Carbon Dioxide 17 L Anion Gap 18 BUN 18 H Creatinine 0.81 Estim Creat Clear Calc 52.8 Estimated GFR > 60 POC Glucose Random Glucose 159 H Calcium 9.8 Total Bilirubin 0.3 AST 11 ALT 7 Alkaline Phosphatase 76 Troponin I High Sens B-Natriuretic Peptide Total Protein 6.8 Albumin 3.5 Urine Color Urine Appearance Urine pH Ur Specific [place] Urine Protein Urine Glucose (UA) Urine Ketones Urine Blood Urine Nitrite Ur Leukocyte Esterase Urine RBC Urine WBC Ur Squamous Epith Cells Urine Bacteria Hyaline Casts COVID-19 (HERNÁN) COVID-19 Clin Com 06/12/23 06/12/23 06/12/23 16:35 16:35 17:21 WBC RBC Hgb Hct MCV MCH MCHC RDW Plt Count MPV Immature Gran % (Auto) Neut % (Auto) Lymph % (Auto) [place] % (Auto) Eos % (Auto) Baso % (Auto) Lymph # (Auto) [place] # (Auto) Eos # (Auto) Baso # (Auto) Abs Immat Gran (auto) Absolute Neuts (auto) Absolute Nucleated RBC Nucleated RBC % (auto) PT INR APTT Sodium Potassium Chloride Carbon Dioxide Anion Gap BUN Creatinine Estim Creat Clear Calc Estimated GFR POC Glucose 154 H Random Glucose Calcium Total Bilirubin AST ALT Alkaline Phosphatase Troponin I High Sens 5.0 B-Natriuretic Peptide 84 Total Protein Albumin Urine Color Urine Appearance Urine pH Ur Specific [place] Urine Protein Urine Glucose (UA) Urine Ketones Urine Blood Urine Nitrite Ur Leukocyte Esterase Urine RBC Urine WBC Ur Squamous Epith Cells Urine Bacteria Hyaline Casts COVID-19 ([facility]ERNÁN) COVID-19 Clin Com 06/12/23 06/12/23 06/12/23 19:50 19:55 21:11 WBC RBC Hgb Hct MCV MCH MCHC RDW Plt Count MPV Immature Gran % (Auto) Neut % (Auto) Lymph % (Auto) [place] % (Auto) Eos % (Auto) Baso % (Auto) Lymph # (Auto) [place] # (Auto) Eos # (Auto) Baso # (Auto) Abs Immat Gran (auto) Absolute Neuts (auto) Absolute Nucleated RBC Nucleated RBC % (auto) PT INR APTT Sodium Potassium Chloride Carbon Dioxide Anion Gap BUN Creatinine Estim Creat Clear Calc Estimated GFR POC Glucose Random Glucose Calcium Total Bilirubin AST ALT Alkaline Phosphatase Troponin I High Sens 3.9 B-Natriuretic Peptide Total Protein Albumin Urine Color Yellow Urine Appearance Clear Urine pH 6.0 Ur Specific [place] <= 1.005 Urine Protein Negative Urine Glucose (UA) Negative Urine Ketones Negative Urine Blood Negative Urine Nitrite Negative Ur Leukocyte Esterase Trace H Urine RBC 0-2 Urine WBC 0-5 Ur Squamous Epith Cells 0-2 Urine Bacteria None Seen Hyaline Casts 0-2 COVID-19 ([facility]N) Negative COVID-19 Clin Com See Note 06/13/23 06/13/23 06/13/23 04:37 04:37 06:52 WBC 7.4 RBC 4.04 L Hgb 10.7 L Hct 33.6 L MCV 83.2 MCH 26.5 L MCHC 31.8 RDW 14.6 Plt Count 313 MPV 9.7 Immature Gran % (Auto) Neut % (Auto) Lymph % (Auto) [place] % (Auto) Eos % (Auto) Baso % (Auto) Lymph # (Auto) [place] # (Auto) Eos # (Auto) Baso # (Auto) Abs Immat Gran (auto) Absolute Neuts (auto) Absolute Nucleated RBC 0.000 Nucleated RBC % (auto) 0.0 PT INR APTT Sodium 138 Potassium 4.3 Chloride 108 Carbon Dioxide 19 L Anion Gap 15 BUN 12 Creatinine 0.69 Estim Creat Clear Calc 62.0 Estimated GFR > 60 POC Glucose 165 H Random Glucose 173 H Calcium 9.1 D Total Bilirubin AST ALT Alkaline Phosphatase Troponin I High Sens B-Natriuretic Peptide Total Protein Albumin Urine Color Urine Appearance Urine pH Ur Specific [place] Urine Protein Urine Glucose (UA) Urine Ketones Urine Blood Urine Nitrite Ur Leukocyte Esterase Urine RBC Urine WBC Ur Squamous Epith Cells Urine Bacteria Hyaline Casts COVID-19 ([facility]N) COVID-19 Clin Com Discharge Plan Discharge Patient Disposition: Home, Self-Care Discharge Diagnosis: syncope Referrals: Physician,Unknown J [Physician] - 1 Week Discharge Medications: Continued multivitamin Tablet 1 tab PO DAILY melatonin 5 mg Tablet 5 mg PO BEDTIME PRN (Reason: Sleep) albuterol sulfate 90 mcg/actuation HFA aerosol inhaler 2 puff inhalation Q4H PRN (Reason: Shortness Of Breath Or Wheezing) diltiazem HCl 120 mg capsule,extended release 24 hr 120 mg PO QAM albuterol sulfate 2.5 mg /3 mL (0.083 %) solution for nebulization 2.5 mg inhalation Q4H PRN (Reason: wheezing) (DME) blood pressure test kit-large Kit See Rx Instructions .ROUTE DAILY Qty: 1 Rx Instructions: As directed levothyroxine 125 mcg tablet 125 mcg PO QAM pantoprazole 40 mg tablet,delayed release (DR/EC) 40 mg PO DAILY metformin 500 mg tablet 500 mg PO DAILY Discontinued losartan 50 mg tablet 50 mg PO DAILY insulin aspart U-100 [Novolog U-100 Insulin aspart] 100 unit/mL solution 7 unit subcut BID insulin glargine [Lantus Solostar U-100 Insulin] 100 unit/mL (3 mL) insulin pen 25 unit subcut BEDTIME Discharge Orders: Discharge Order (Routine); Ordered 06/13/23 Ordered By: Lidia Cary Diet: Diabetic diet Activity on Discharge: As tolerated Stand Alone Forms: Patient Portal Discharge page Care Plan Goals: vasovagal syncope stop Losartan follow blood sugars daily and document in a diary and follow-up with primary care physician to address need for continued Lantus. Health Concerns: diabetes follow blood sugars Plan of Treatment: outpatient follow-up with primary care physician. Assessment: as above Discharge Date/Time: 06/13/23 10:04
== END 2023-06-13 10:04 | disposition home or self-care (01) ==
LOC: HO.ED 16:18 → HO.EDOVER 22:20
PROVIDERS: Internal Medicine; Physician Assistant; Admitting Provider Student in an Organized Health Care Education/Training Program; Emergency Provider Internal Medicine; PCP Registered Nurse; Visit Provider Hospitalist
DX: R55 Syncope and collapse (principal); E87.1 Hypo-osmolality and hyponatremia; Z20.822 Contact with and (suspected) exposure to COVID-19; E11.9 Type 2 diabetes mellitus without complications; I10 Essential (primary) hypertension; E78.5 Hyperlipidemia, unspecified; K21.9 Gastro-esophageal reflux disease without esophagitis; J45.20 Mild intermittent asthma, uncomplicated; E03.9 Hypothyroidism, unspecified; Z79.4 Long term (current) use of insulin; Z79.899 Other long term (current) drug therapy
CPT/HCPCS: 36415; 71045; 80048; 80053; 81001; 81003; 82947; 83880; 84484; 85025; 85027; 85610; 85730; 87635; 93005; 96360; 96361; 96372; 99222; 99285; J1650

== ENCOUNTER → 2023-06-12 16:18 | Outpatient (BNV) | payer MEDICARE, SELFPAY | PROVIDERS: Admitting Provider Student in an Organized Health Care Education/Training Program; Emergency Provider Internal Medicine; Visit Provider Internal Medicine | DX: R94.31 Abnormal electrocardiogram [ECG] [EKG] (principal) | CPT/HCPCS: 93010 ==

== ENCOUNTER → 2023-06-12 21:11 | Outpatient (BNV) | payer MEDICARE, SELFPAY | PROVIDERS: Admitting Provider Student in an Organized Health Care Education/Training Program; Emergency Provider Internal Medicine; PCP Registered Nurse; Visit Provider Hospitalist | DX: R55 Syncope and collapse (principal) | CPT/HCPCS: 99222; 99239 ==

== ENCOUNTER 2023-06-29 13:14 | Outpatient (REF) | payer MEDICARE, SELFPAY ==
[2023-06-29 15:16] LABS: Vitamin B12 417 pg/mL (200-900)
== END 2023-06-29 13:15 | disposition home or self-care (01) ==
LOC: HO.LAB 13:14
PROVIDERS: PCP Registered Nurse; Visit Provider Psychiatry & Neurology Neurology
DX: G30.9 Alzheimer's disease, unspecified (principal)
CPT/HCPCS: 36415; 82607

== ENCOUNTER 2023-07-01 15:12 | Outpatient (REF) | payer MEDICARE, SELFPAY ==
[2023-07-01 18:48] LABS: TSH reflex Free T4 0.01 uIU/mL (0.32-4.0)
[2023-07-01 19:20] LABS: Free T4 (Free Thyroxine) 1.74 ng/dL (0.71-1.85)
== END 2023-07-01 15:13 | disposition home or self-care (01) ==
LOC: HO.CHCLDS 15:12
PROVIDERS: Visit Provider Registered Nurse
DX: E03.9 Hypothyroidism, unspecified (principal)
CPT/HCPCS: 36415; 84439; 84443

== ENCOUNTER 2023-08-01 09:58 | Outpatient (REF) | payer MEDICARE, OTHER, SELFPAY ==
[2023-08-01 12:13] LABS: TSH reflex Free T4 0.02 uIU/mL (0.32-4.0)
[2023-08-01 13:20] LABS: Free T4 (Free Thyroxine) 1.42 ng/dL (0.71-1.85)
== END 2023-08-01 09:59 | disposition home or self-care (01) ==
LOC: HO.HHCL 09:58
PROVIDERS: Visit Provider Registered Nurse
DX: E03.9 Hypothyroidism, unspecified (principal)
CPT/HCPCS: 36415; 84439; 84443

== ENCOUNTER 2023-08-16 11:24 | Outpatient (REF) | payer MEDICARE, OTHER, SELFPAY ==
--- NOTE | ~2023-08-16 | MR_ITS ---
EXAMINATION: MR BRAIN WITHOUT CONTRAST CLINICAL INFORMATION: Alzheimer's disease, syncope COMPARISON: None TECHNIQUE: Multiplanar multisequence MR imaging of the brain was obtained without intravenous contrast. FINDINGS: There is no acute infarct on diffusion-weighted imaging. There is no intracranial hemorrhage on iron-sensitive imaging. No extra-axial collection or mass effect/herniation. Scattered periventricular and deep white matter T2 FLAIR hyperintensities consistent with mild underlying microangiopathy. No hydrocephalus. Mild generalized cerebral volume loss with commensurate sulcal and ventricular prominence. The major flow voids at the skull base are preserved. The midline structures are normal. The cerebellar tonsils are normally positioned. The craniocervical junction is normal. Marrow signal is within normal limits. The visualized soft tissues are without significant abnormality. Small right maxillary sinus mucous retention cyst. MR/MR head/brain wo con IMPRESSION: 1. Mild generalized cerebral volume loss and mild chronic white matter microangiopathy. 2. Otherwise unremarkable noncontrast MRI of the brain.
== END 2023-08-16 11:25 | disposition home or self-care (01) ==
LOC: HO.MRI 11:24
PROVIDERS: PCP Registered Nurse; Visit Provider Psychiatry & Neurology Neurology
DX: G30.9 Alzheimer's disease, unspecified (principal); R55 Syncope and collapse
CPT/HCPCS: 70551

== ENCOUNTER 2023-10-18 13:44 | Outpatient (AMB) | payer MEDICARE, SELFPAY ==
--- NOTE | 2023-10-18 13:49 | MHC.OFFVIS ---
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/ arrhtyhmia/sob/ preop Intake Note: NPV Parks And Recreation Manager Required: No Accompanied by: Self / Same As Patient Allergies Penicillins Allergy (Severe, Verified 10/18/23 13:53) Rash Medication List - Last Reconciled 10/18/23 by Jose A Garcia MD albuterol sulfate 90 mcg/actuation 2 puffs inhalation Q4H PRN albuterol sulfate 2.5 mg inhalation Q4H PRN blood pressure test kit-large As directed diltiazem HCl ER 120 mg PO QAM fluticasone propionate 44 mcg/actuation (Flovent HFA) 1 puff inhalation BID levothyroxine 125 mcg PO QAM melatonin 5 mg PO BEDTIME PRN metformin 1,000 mg PO BID multivitamin 1 tab PO DAILY rosuvastatin 10 mg PO DAILY HPI HPI Comments History of Present Illness Details Vida is here for consultation with her daughter. Patient does not speak [place] but daughter is translating and they signed the appropriate form. According to daughter, patient lived in [place] but few months back, she moved locally. She apparently saw a skein washer in [place], but they do not know why. She used to be prescribed sublingual nitroglycerin, but again there is no clear-cut CAD history but daughter is not sure either. Patient apparently gets short of breath off and on. Can happen with or without exertion. She was also told to have some rhythm issues but again no information. [facility] Medical History (Updated 10/18/23 @ 15:06 by Jose A Garcia MD) Dementia Umbilical hernia Thyroid disease Arthritis Hypertension Surgical History History of female sterilization History of shoulder surgery History of carpal tunnel surgery Family History (Updated 10/18/23 @ 13:56 by Casi Driscoll) Mother Heart problem Other Colon cancer Social History Alcohol intake: never Patient Tobacco Use Status: Never used Tobacco service: No Review of Systems Const Denies chills, Denies daytime sleepiness, Denies fatigue, Denies fever(s), Denies frequent falls, Denies night sweats, Denies snoring, Denies weakness, Denies weight gain and Denies weight loss Eyes Denies loss of vision ENT Denies dizziness and Denies hearing loss Card Denies chest pain with activity, Denies syncope, Denies rapid heart rate, Denies edema, Denies claudication, Denies leg edema, Denies lightheadedness, Denies palpitations, Denies dyspnea on exertion and Denies orthopnea Resp Denies cough, Denies excessive phlegm production, Denies dyspnea on exertion, Denies snoring and Denies wheezing GI Denies abdominal pain, Denies hematochezia, Denies change in bowel habits, Denies change in stool character, Denies heartburn, Denies nausea and Denies vomiting Denies hematuria, Denies urinary frequency and Denies dysuria Musc Denies arthralgias, Denies muscle weakness, Denies numbness and Denies tingling Skin/Breast Denies nail changes and Denies rash Neuro Denies Abnormal speech present, Denies dizziness, Denies syncope, Denies frequent falls, Denies loss of vision, Denies memory loss, Denies numbness, Denies tingling and Denies weakness Psych Denies depression and Denies memory loss Endo Denies fatigue and Denies palpitations Aller/Immun Denies wheezing Physical Exam Vital Signs: Last Vital Signs Pulse 81 10/18/23 13:52 BP 126/58 L 10/18/23 13:52 BMI result Body Mass Index 33.6 Const General: comfortable and no acute distress Orientation/consciousness: patient oriented x3 HEENT Other: Unremarkable Head: Yes normal to inspection Neck Neck: Yes normal visual inspection Chest Chest palpation & inspection: normal inspection of the chest Resp Auscultation: clear to auscultation bilaterally Cardio Palpation: normal PMI Heart sounds: S1 normal heart sound present, S2 normal heart sound present, no gallops, no murmurs and no rubs GI Palpation (GI): Soft to palpation Back/Spine/Pelvis Other: unremarkable Skin General skin exam: no rashes or lesions noted Neuro General: patient oriented x3 Speech: No Abnormal speech present Extrem General: Yes normal to inspection Psych Mental Status: mental status grossly normal Assessment & Plan Assessment & Plan (1) SOB (shortness of breath): Code(s): R06.02 - Shortness of breath Plan: EKG with sinus rhythm, 76/Min; cannot exclude old anterior infarct; normal NJ and corrected QT. Vague cardiac history without any details. We can start with comprehensive workup including echocardiogram and myocardial perfusion imaging study. Based on findings, can plan further care. Discussed with daughter who came for appointment. Orders: Orders CA lexiscan stress w joanna Today I20.9 - Angina pectoris, unspecified CA echo transthoracic complete Today I25.10 - Atherosclerotic heart disease of [place] coronary artery without angina pectoris NM cardiolite stress test Today R07.2 - Precordial pain Coding Level of Care Code New Pt Level 4 (10494) Diagnoses SOB (shortness of breath) R06.02
[2023-10-18 13:52] VITALS: BP 126/58; PULSE 81; BMI 33.6
== END 2023-10-18 14:49 | disposition home or self-care (01) ==
PROVIDERS: PCP Registered Nurse; Visit Provider Internal Medicine
DX: R06.02 Shortness of breath (principal)
CPT/HCPCS: 99204

== ENCOUNTER → 2023-10-18 13:44 | Outpatient (BNVA) | payer MEDICARE, OTHER, SELFPAY | PROVIDERS: PCP Registered Nurse; Visit Provider Internal Medicine | DX: R06.02 Shortness of breath (principal) | CPT/HCPCS: 99202 ==

== ENCOUNTER 2023-10-28 09:55 | Outpatient (REF) | payer MEDICARE, SELFPAY ==
[2023-10-28 12:56] LABS: Free T4 (Free Thyroxine) 1.29 ng/dL (0.71-1.85)
== END 2023-10-28 09:56 | disposition home or self-care (01) ==
LOC: HO.HHCL 09:55
PROVIDERS: Visit Provider Registered Nurse
DX: E03.9 Hypothyroidism, unspecified (principal)
CPT/HCPCS: 36415; 84439; 84443

== ENCOUNTER 2023-12-16 09:10 | Outpatient (REF) | payer MEDICARE, SELFPAY ==
[2023-12-16 12:24] LABS: TSH reflex Free T4 0.03 uIU/mL (0.32-4.0)
[2023-12-16 12:33] LABS: Vitamin B12 397 pg/mL (200-900)
[2023-12-16 12:55] LABS: Free T4 (Free Thyroxine) 1.23 ng/dL (0.71-1.85)
== END 2023-12-16 09:11 | disposition home or self-care (01) ==
LOC: HO.HHCL 09:10
PROVIDERS: Visit Provider Registered Nurse
DX: E03.9 Hypothyroidism, unspecified (principal); E11.9 Type 2 diabetes mellitus without complications; Z79.4 Long term (current) use of insulin
CPT/HCPCS: 36415; 82607; 84439; 84443

== ENCOUNTER → 2024-02-02 07:40 | Outpatient (REF) | payer MEDICARE, SELFPAY ==
--- NOTE | ~2024-02-02 | NM_ITS ---
Lexiscan Myocardial perfusion study Indication: Shortness of breath, chest pain Technique: The patient was brought in for a Lexiscan perfusion study on 02/02/2024 and was injected 0.4 mg of Lexiscan intravenously. Within a minute of this injection 25 mCi of sestamibi was given intravenously. Images were obtained using the SPECT gamma camera interlaced with the gating device. Images were obtained in supine position. Resting perfusion study was performed on 02/03/2024. Patient was administered 25 mCi of sestamibi intravenously at rest. Images were then obtained in supine position. Images were processed with the software and compared side to side in short axis, horizontal long axis and vertical long axis views. Total DLP 176mGy-cm. Findings: Raw acquisition reviewed. Arms by the patient's side. The stress perfusion study showed no significant perfusion abnormality. Both uncorrected as well as CT attenuation corrected images were reviewed. The gated study shows normal LV systolic function with calculated LVEF of >70%. LV cavity is normal in size. The gated study shows normal wall thickening and contraction of segments. Resting study shows no significant perfusion of normality. Gating at rest reveals normal wall motion with ejection fraction at > 70%. The findings are consistent with no reversible or fixed perfusion abnormality. NM/[place] cardiolite stress test Impression: 1. Myocardial perfusion imaging study shows normal myocardial perfusion. 2. Gated LVEF is > 70% during stress and rest. 3. Transient ischemic dilatation not present. EKG component of the test reported separately.
--- NOTE | 2024-02-02 07:43 | CA_ITS ---
Transthoracic Echocardiogram Patient (Last, First, Middle): Vida Amado, Gender: Female Date of : 1945 Age: 78 Procedure Date: 02/02/2024 Procedure Type: Transthoracic Echocardiogram Location: OP Height: 139.7 cm Weight: 72.58 kg BSA: 1.59 m2 Heart Rate: bpm BP: 128 / 72 mmHg Retail Training Manager: TO Referring MD: Jose A Garcia MD Symptoms: I25.10 - Atherosclerotic heart disease of [place] coronary artery without... Study Quality: Adequate with contrast ECG Rhythm: Sinus Conclusions: - The left ventricular systolic function is normal. The calculated ejection fraction is 59% by biplane method. - No obvious valvular pathology seen on this study. Findings Procedure Information Contrast agent, definity, is being given per protocol without apparent complications. Left Ventricle Normal left ventricular cavity size. The left ventricular systolic function is normal. The calculated ejection fraction is 59% by biplane method. There is no evidence of regional wall motion abnormalities. Evidence suggests grade I (mild) diastolic dysfunction. There is mild septal asymmetric hypertrophy. Right Ventricle Normal right ventricular cavity size and systolic function. Atria Both atria are normal in size. Aortic Valve There is a normal trileaflet aortic valve. There is no aortic valve stenosis. There is no aortic valve regurgitation. Mitral Valve There is mild anterior mitral leaflet thickening. There is trace mitral valve regurgitation. There is no mitral valve stenosis. Pulmonic Valve The pulmonic valve is likely normal. Tricuspid Valve There is mild tricuspid valve regurgitation. There is no evidence of pulmonary hypertension. Great Vessels The asc aorta is normal in size. Venous The inferior vena cava is normal in size and collapses greater than 50% with inspiration. Pericardium/Pleural There is no evidence of pericardial effusion. Prior Study Comparison No prior study available for comparison. Recommendations, Care & Conclusions No obvious valvular pathology seen on this study. Measurements 2D Linear Measurements IVSd: 1.15 0.6-0.9/0.6-1.0 cm LVIDd: 4.04 3.9-5.3/4.2-5.9 cm LVIDd Index: 2.54 2.4-3.2/2.2-3.1 cm/m2 LVIDs: 2.72 2.0-3.6 cm LVPWd: 0.92 0.7-1.1 cm LA Diam: 3.10 2.7-3.8/3.0-4.0 cm LAIDs Index: 1.95 1.5-2.3 cm/m2 LV Mass: 168.06 67-162/88-224 g LV Mass Index: 105.70 43-95/49-115 g/m2 LVOT Diam: 1.90 3.0+(-)1.3 cm 2D Systolic Function EF 4C: 55.60 >55% EF 2C: 60.30 >55% EF BiP: 58.50 >55% Mitral Valve MV VTI: 0.29 MV Pk Rinku: 1.06 MV Mn Rinku: 0.64 MV Pk Grad: 4.00 MV Mn Grad: 2.00 MV Pk E: 0.55 MV PK A: 1.05 MV Decel Time: 218.00 E/A: 0.50 E'Lateral: 4.79 E'Medial: 3.59 E/E' Med: 15.40 E/E' Lat: 11.50 PHT: 64.00 MVA PHT: 3.44 MVA Continuity: 2.33 Decel [place]kin: 2.53 Aortic Valve AoV Pk Rinku: 1.12 AoV Mn Rinku: 0.80 AoV VTI: 0.26 AoV Pk Grad: 5.00 Aov Mn Grad: 3.00 DENIS Cont.VTI: 2.66 LVOT LVOT Pk Rinku: 0.93 LVOT Mn Rinku: 0.54 LVOT VTI: 0.24 LVOT Pk Grad: 3.00 LVOT Mn Grad: 1.00 LVOT Diam: 1.90 LVOT Area: 2.84 Diastolic Function MV Pk E: 0.55 MV Pk A: 1.05 E/A: 0.50 E'Medial: 3.59 E/E' Med: 15.40 E' Laterial: 4.79 E/E' Lat: 11.50 Right Ventricle TAPSE (mm): 18.80 TVS' Rinku: 10.70 Tricuspid Valve TR Pk Rinku: 2.37 TR Pk Grad: 22.00 RA Press: 3.00 RVSP: 25.00 Great Vessels Aorta Sinus of Valsalva: 3.23 2.0-3.5 cm Ao Asc: 2.90 2.1-3.4 cm Updated in Other Vendor System with Status of Final Jose A Garcia MD electronically signed on 02/04/2024 12:08:51 PM with status of Final
--- NOTE | 2024-02-02 07:43 | CA_ITS ---
Acquisition Time: 2024-02-02 09:27:02 Total Exercise Time: 00:02:00 Test Indications: Dyspnea Medications: SEE H Protocol: LEXISCAN Max HR: 100 BPM 70% of Pred: 142 BPM Max BP: 142/066 mmHG Max Work Load: 1.0 METS Pharmaoclogical stress test with Lexiscan injecton while sitting and kickig his legs, without anginal symptoms,without arrhythmias, with normotenisve response to injection, with nondiagnoisitic EKGs. Nuclear images pending. Test reviewed with Dr. Garcia. Referred By: Jose A Garcia Overread By: Cookie Samayoa
== END ==
LOC: HO.CARD 07:40
PROVIDERS: PCP Registered Nurse; Visit Provider Internal Medicine
DX: R07.2 Precordial pain (principal); I25.10 Atherosclerotic heart disease of native coronary artery without angina pectoris
CPT/HCPCS: 78452; 93017; 93306; A9500; J0280; J2785; Q9957

== ENCOUNTER → 2024-02-02 07:43 | Outpatient (BNV) | payer MEDICARE, SELFPAY | PROVIDERS: PCP Registered Nurse; Visit Provider Nurse Practitioner | DX: I25.10 Atherosclerotic heart disease of native coronary artery without angina pectoris (principal) | CPT/HCPCS: 78452; 93016; 93018; 93350; 93352 ==

== ENCOUNTER 2024-02-10 16:11 | Outpatient (REF) | payer MEDICARE, SELFPAY ==
[2024-02-10 18:54] LABS: TSH reflex Free T4 0.21 uIU/mL (0.32-4.0)
[2024-02-10 19:32] LABS: Free T4 (Free Thyroxine) 1.38 ng/dL (0.71-1.85)
== END 2024-02-10 16:12 | disposition home or self-care (01) ==
LOC: HO.CHCLDS 16:11
PROVIDERS: Visit Provider Registered Nurse
DX: E03.9 Hypothyroidism, unspecified (principal)
CPT/HCPCS: 36415; 84439; 84443

== ENCOUNTER 2024-04-24 08:17 | Outpatient (REF) | payer MEDICARE, SELFPAY ==
[2024-04-24 12:05] LABS: Creatinine Urine 73.86 mg/dL; Microalbum/Creatinine Ratio Ur 18.9 ug/mg cr (<30)
[2024-04-24 12:16] LABS: Alanine Aminotransferase 9 U/L (0-31); Albumin Level 4.2 g/dL (3.5-5.0); Alkaline Phosphatase 79 U/L (39-117); Anion Gap 14 (12-20); Aspartate Amino Transferase 14 U/L (5-31); Bilirubin Total 0.3 mg/dL (0.0-1.0); Blood Urea Nitrogen 17 mg/dL (9-16); Calcium 10.2 mg/dL (8.4-10.2); Carbon Dioxide 27 mmol/L (22-29); Chloride 103 mmol/L (96-108); Cholesterol 177 mg/dL (<200); Estimated Glomerular Filt Rate > 60; Glucose Random 228 mg/dL (60-115); HDL Cholesterol 62 mg/dL (>40); LDL Cholesterol Calculated 79 mg/dL (<100); Potassium 5.5 mmol/L (3.3-5.1); Sodium 138 mmol/L (135-145); TSH reflex Free T4 2.03 uIU/mL (0.32-4.0); Total Protein 7.8 g/dL (6.5-8.0); Triglycerides 180 mg/dL (<150)
== END 2024-04-24 08:18 | disposition home or self-care (01) ==
LOC: HO.HHCL 08:17
PROVIDERS: Visit Provider Registered Nurse
DX: E03.9 Hypothyroidism, unspecified (principal); E11.9 Type 2 diabetes mellitus without complications; Z79.4 Long term (current) use of insulin
CPT/HCPCS: 36415; 80053; 80061; 82043; 82570; 84443

== ENCOUNTER 2024-05-10 09:52 | Outpatient (REF) | payer MEDICARE, SELFPAY ==
[2024-05-10 11:59] LABS: Anion Gap 15 (12-20); Blood Urea Nitrogen 11 mg/dL (9-16); Calcium 9.7 mg/dL (8.4-10.2); Carbon Dioxide 24 mmol/L (22-29); Chloride 103 mmol/L (96-108); Estimated Glomerular Filt Rate > 60; Glucose Random 183 mg/dL (60-115); Potassium 4.7 mmol/L (3.3-5.1); Sodium 137 mmol/L (135-145)
== END 2024-05-10 09:53 | disposition home or self-care (01) ==
LOC: HO.HHCL 09:52
PROVIDERS: Visit Provider Registered Nurse
DX: E87.5 Hyperkalemia (principal)
CPT/HCPCS: 36415; 80048

== ENCOUNTER 2024-08-06 15:53 | Outpatient (REF) | payer MEDICARE, SELFPAY ==
--- NOTE | ~2024-08-06 | XR_ITS ---
STUDY: Cervical spine and left shoulder INDICATION: Left cervical pain/spasm and left shoulder pain for 2 weeks COMPARISON: None TECHNIQUE: 3 view cervical spine, 4 view left shoulder FINDINGS: Cervical spine: Bones are diffusely demineralized. Minor cervical lordotic straightening. Mild vertebral body height losses of C5 and C6 are likely degenerative. Multilevel spurring. C5-6 disc space narrowing. Posterior elements are aligned and no prevertebral soft tissue swelling is seen. Extreme odontoid tip is not included. Lung apices are clear. Severe left carotid bulb calcification. Left shoulder: Mild degenerative change acromioclavicular joint. Mild spurring left lateral humeral head. No fracture or dislocation. Bony demineralization. Visualized lung is clear. Aortic calcifications. XR/XR cervical spine 3V IMPRESSION: 1. Cervical lordotic straightening, cervical spondylosis and C5-6 disc disease. 2. Mild left shoulder degenerative changes. 3. Atherosclerotic disease most notable with bulky left carotid bulb calcification. Electronically signed by: Jovana Roblero MD 08/07/2024 09:00 AM EDT
--- NOTE | ~2024-08-06 | XR_ITS ---
STUDY: Cervical spine and left shoulder INDICATION: Left cervical pain/spasm and left shoulder pain for 2 weeks COMPARISON: None TECHNIQUE: 3 view cervical spine, 4 view left shoulder FINDINGS: Cervical spine: Bones are diffusely demineralized. Minor cervical lordotic straightening. Mild vertebral body height losses of C5 and C6 are likely degenerative. Multilevel spurring. C5-6 disc space narrowing. Posterior elements are aligned and no prevertebral soft tissue swelling is seen. Extreme odontoid tip is not included. Lung apices are clear. Severe left carotid bulb calcification. Left shoulder: Mild degenerative change acromioclavicular joint. Mild spurring left lateral humeral head. No fracture or dislocation. Bony demineralization. Visualized lung is clear. Aortic calcifications. XR/XR shoulder LT min 2V IMPRESSION: 1. Cervical lordotic straightening, cervical spondylosis and C5-6 disc disease. 2. Mild left shoulder degenerative changes. 3. Atherosclerotic disease most notable with bulky left carotid bulb calcification. Electronically signed by: Jovana Roblero MD 08/07/2024 09:00 AM EDT
== END 2024-08-06 15:54 | disposition home or self-care (01) ==
LOC: HO.HHCX 15:53
PROVIDERS: Visit Provider Internal Medicine
DX: M62.838 Other muscle spasm (principal); S43.402A Unspecified sprain of left shoulder joint, initial encounter
CPT/HCPCS: 72040; 73030

== ENCOUNTER 2024-08-24 14:19 | Outpatient (REF) | payer MEDICARE, SELFPAY ==
--- NOTE | ~2024-08-24 | XR_ITS ---
EXAMINATION: XR HIP, RIGHT CLINICAL INFORMATION: Pain. COMPARISON: None available. TECHNIQUE: Two views of the right hip. FINDINGS: No acute fracture or dislocation. Moderate joint space narrowing and trace subcortical sclerosis of the right hip. No significant soft tissue abnormality. XR/XR hip RT min 2V IMPRESSION: No acute fracture or dislocation. 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 Electronically signed by: Bre James MD 08/24/2024 04:28 PM EDT
== END 2024-08-24 14:20 | disposition home or self-care (01) ==
LOC: HO.HHCX 14:19
PROVIDERS: Visit Provider Nurse Practitioner
DX: R10.31 Right lower quadrant pain (principal)
CPT/HCPCS: 73502

== ENCOUNTER 2024-09-19 13:23 | Outpatient (REF) | payer MEDICARE, SELFPAY ==
--- NOTE | ~2024-09-19 | XR_ITS ---
EXAMINATION: XR KNEE, LEFT CLINICAL INFORMATION: Chronic left knee pain COMPARISON: None available. TECHNIQUE: Four views of the left knee. FINDINGS: There is mild narrowing of the medial joint space with meniscal calcification and marginal osteophyte formation. There is lateral meniscal calcification. There is no fracture, dislocation or destructive process or joint effusion. XR/XR knee LT 3V IMPRESSION: Degenerative changes observed. Electronically signed by: Ambrocio Russell MD 09/19/2024 05:35 PM NICOLASA STOKES
== END 2024-09-19 13:24 | disposition home or self-care (01) ==
LOC: HO.XRAY 13:23
PROVIDERS: PCP Registered Nurse; Visit Provider Registered Nurse
DX: M25.562 Pain in left knee (principal); G89.29 Other chronic pain
CPT/HCPCS: 73562

== ENCOUNTER 2024-10-31 08:36 | Outpatient (REF) | payer MEDICARE, SELFPAY ==
--- OUTSIDE RECORDS SUMMARY | 2024-10-31 08:50 | XMS_ITS | Continuity of Care Document ---
Author Organization [facility] Address [address] [place] [address] Care Team Providers Care Post Anesthesia Room Nurse Name Role Phone Obrien OD, Lavender Unavailable Unavailable Advance Directives Directive Yes / No Effective Date File Name No Information Encounters Encounter Description Practice Location Reason(s) For Visit Diagnoses Date Provider Providers Copied on Encounter [facility], [address], [place], [place], [id number], [place]. [address] routine eye exam (chief complaint) No Information Obrien Lavender. [address], [address], [place], [place], [id number], [place]. tel:[phone] Family History Family Member Type Diagnosis Age [...]
== END 2024-10-31 08:37 | disposition home or self-care (01) ==
LOC: HO.HOSX 08:36
PROVIDERS: Visit Provider Physician Assistant
DX: M25.562 Pain in left knee (principal); M17.12 Unilateral primary osteoarthritis, left knee
CPT/HCPCS: 73560; 99202

== ENCOUNTER 2024-10-31 10:47 | Outpatient (AMB) | payer MEDICARE, SELFPAY ==
--- NOTE | 2024-10-31 10:54 | MHC.OFFVIS ---
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 Patient daughter reports that her pain has been present for more than a year. Her pain came suddenly, denies injury. States pain is located at the anterior, medial and lateral aspects of knee. Denies numbness or tingling. Her knee frequently gives out. Denies fall. She uses a cane and walker at times with ambulation. Sales Representative Trainee Required: Yes Sales Representative Trainee Services: Sales Representative Trainee Offered & Declined Project Management Analyst: Project Management Analyst Present Accompanied by: Daughter Allergies Penicillins Allergy (Severe, Verified 10/31/24 10:57) Rash Medication List - Last Reconciled 10/31/24 by Rosy Diop PA-C albuterol sulfate 90 mcg/actuation 2 puffs inhalation Q4H PRN albuterol sulfate 2.5 mg inhalation Q4H PRN blood pressure test kit-large As directed diltiazem HCl ER 120 mg PO QAM dulaglutide (Trulicity) mg subcut fluticasone propionate 44 mcg/actuation (Flovent HFA) 1 puff inhalation BID levothyroxine 125 mcg PO QAM melatonin 5 mg PO BEDTIME PRN metformin 1,000 mg PO BID multivitamin 1 tab PO DAILY rosuvastatin 10 mg PO DAILY HPI HPI 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 She denies any injury and reports her pain came in suddenly. She currently states she has pain at the anterior, medial and lateral aspect of her knee that is aggravated with going upstairs. She denies any numbness or tingling. She also reports her knee frequently gives out however she denies any fall. She uses a cane and walker occasionally with ambulation. She has a history of diabetes. [facility] Medical History (Updated 10/31/24 @ 11:08 by Rosy Diop PA-C) Dementia Umbilical hernia Thyroid disease Arthritis Hypertension Surgical History History of female sterilization History of shoulder surgery History of carpal tunnel surgery Family History (Updated 10/18/23 @ 13:56 by Casi Driscoll) Mother Heart problem Other Colon cancer Social History (Updated 10/31/24 @ 10:58 by Ally Crane [facility]) Alcohol intake: never Patient Tobacco Use Status: Never used Tobacco service: No Current occupational status: retired Review of Systems Const All systems reviewed & are unremarkable except as noted in HPI and below Physical Exam Vital Signs: BMI result Body Mass Index 33.6 Const General: cooperative, healthy appearing, comfortable, no acute distress, well developed and alert Orientation/consciousness: patient oriented x3 HEENT Head: Yes normal to inspection, Yes normocephalic and Yes atraumatic Eyes General: appearance normal, both eyes and all related structures Resp Effort & Inspection: normal respiratory effort and able to speak in complete sentences Cardio Rate: regular rate Peripheral pulses: Peripheral pulses 2+ throughout GI Palpation (GI): Soft to palpation Skin Lesions: no lesions Rashes: no rashes Neuro General: patient oriented x3 Extrem Other: Left knee: Skin intact, no erythema or joint effusion. Tenderness along the medial and lateral joint line. Full ROM with crepitus. Negative Rodrigue?s. No ligamentous laxity. NVI. Results Reviewed Results Reviewed: Xrays were obtained in the office today and personally reviewed by me of the left knee show medial compartment oa Assessment & Plan Assessment & Plan (1) Osteoarthritis of left knee: Code(s): M17.12 - Unilateral primary osteoarthritis, left knee Category: Medical Plan We discussed options which include PT, NSAIDs and injections. The patient will defer on the injection today and proceed with PT and NSAIDs. A prescription for Celebrex was also sent to her pharmacy. If symptoms persist, she will contact me for an injection, otherwise, PRN. Orders: Orders XR knee LT 1V Today M25.562 - Pain in left knee PT Evaluation and Treatment Today M17.12 - Unilateral primary osteoarthritis, left knee Medications: New celecoxib (Celebrex) 200 mg PO BID 60 caps 3RF 30 days Patient Instructions: Scribed for Rosy Diop PA-C, by Adria Downey medical pathology teacher, on 10/31/2024 at 11:00 AM EST.? I, Rosy Diop PA-C, have personally reviewed and agree with the information entered by the scribe. Coding Level of Care Code New Pt Level 3 (67233) Complex EM visit Add On G2211 Diagnoses Osteoarthritis of left knee M17.12
[2024-10-31 10:56] VITALS: BMI 33.6
== END 2024-10-31 11:32 | disposition home or self-care (01) ==
PROVIDERS: PCP Registered Nurse; Visit Provider Physician Assistant
DX: M17.12 Unilateral primary osteoarthritis, left knee (principal)
CPT/HCPCS: 99203; G2211

== ENCOUNTER → 2025-07-05 12:54 | Outpatient (REF) | payer OTHER, SELFPAY ==
--- OUTSIDE RECORDS SUMMARY | 2025-07-05 12:58 | XMS_ITS | Encounter Summary ---
Author Organization [employer] Address [address] [place] [address] Care Team Providers Care Orthopaedic Technologist Name Role Phone Edna Norris Primary Care Provider [phone] Agustín Mahmood MD Unavailable [phone] Reason for Visit * Reason Comments Med Refill Encounter Details Date Type Department Care Team (Late st Contact Info) Description 12/12/2023 Refill [facility] [address] [place] [address] Edna Norris FNP [address] [place], [place] [id number] Social History Tobacco Use Types Packs/Day Years Used Date Smoking Tobacco: Former Cigarettes Passive Smoke Exposure: Past Smokeless Tobacco: Never Alcohol Use Standard Drinks/Week Comments Never 0 (1 standard drink = 0.6 oz pur e alcohol) Depression Answer Date Recorded Patient Health Questionnaire-9 Score 0 03/03/2023 Housing Stability Answer Date Recorded What is your housing situation today? I have [place] 08/29/[address] you li ve. Do you have problems with any of the following? None of the above 08/29/2023 Food Insecurity Answer Date Recorded Within the past 12 months, y ou worried that your food would run out before you got money to buy more: Never True 08/29/2023 Within the past 12 months,th e food you bought just didn't last and you didn't have enough money to get more: Never True Transportation Answer Date Recorded In the past 12 months, has l ack of transportation kept you from medical appts, meetings, work or from getting things needed for daily living? No 08/29/2023 Utilities Answer Date Recorded In the past 12 months, has t he electric, gas, oil or water company threatened to shut off services in your home? No 08/29/2023 Depression Answer Date Recorded Patient Health Questionnaire-2 Score 0 03/03/2023 Comments Unknown Sex and Gender Information Value Date Recorded Sex Assigned at Female 01/21/2023 2:14 PM EST Legal Sex Female 2:13 PM EST Gender Identity Female 01/21/2023 2:14 PM EST Sexual Orientation Straight 01/21/2023 2: 14 PM EST documented as of this encounter Plan of Treatment Not on file documented as of this encounter Goals Goal Patient Goal Type Associated Problems Recent Progress Patient-Stated? Author Blood Pressure < 140/90 Blood Pressure 130/68(2024 10:30 AM EDT) No Tricia Oliver PharmD Hemoglobin A1c < 8 Result Component 6.2( 10:44 AM EDT) No Mohamud Alcantara documented as of this encounter Visit Diagnoses Not on filedocumented in this encounter Additional Health Concerns Assessment Noted Time PHQ-9 Depression Total Score: 0 03/03/20 23 8:56 AM EDT documented as of this encounter Care Teams Orthopaedic Technologist Relationship Specialty Start Date End Date Edna Norris FNP [address] [place] [id number] PCP - General Family Medicine 03/02/23 Agustín Mahmood MD [address] [place] [address] [place] [address] Neurology 09/19/24 documented as of this encounter
--- NOTE | 2025-07-05 13:00 | CA_ITS ---
Transthoracic Echocardiogram Patient (Last, First, Middle): Vida Amado, Gender: F Date of : 1945 Age: 79 Procedure Date: 07/05/2025 Procedure Type: Transthoracic Echocardiogram Location: OP Height: 144. cm Weight: 65.32 kg BSA: 1.56 m2 Heart Rate: 72 bpm BP: 95 / 60 mmHg Mission Analyst: MARY Referring MD: Edna MARCUS Road Roller Engineer: Chris Carrillo MD Symptoms: DYSPNEA ON EXERTION Study Quality: Adequate ECG Rhythm: Sinus Conclusions: - 1. Normal LV ejection fraction of 55-60% with impaired relaxation filling pattern 2. Normal cardiac valvular Dopplers 3. Normal RV systolic pressure 4. No gross pericardial effusion Findings Left Ventricle Normal left ventricular size, thickness, and systolic function. The visually estimated ejection fraction is between 55-60%. Spectral Doppler is indicative of an impaired relaxation filling pattern. E/E prime ratio is between 8 and 15 consistent with indeterminate filling pressures. Right Ventricle Normal right ventricular cavity size and systolic function. Atria Both atria are normal in size. 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 There is no evidence of interatrial shunt. Aortic Valve Normal aortic valve structure and function. There is no aortic valve stenosis. There is no aortic valve regurgitation. Mitral Valve There is mild anterior and posterior mitral leaflet thickening. There is trace mitral valve regurgitation. There is no mitral valve stenosis. Pulmonic Valve The pulmonic valve is likely normal. Tricuspid Valve Likely normal tricuspid valve structure and function. There is trace tricuspid valve regurgitation. The right ventricular systolic pressure is normal. The right ventricular systolic pressure is 20 mmHg. Normal right atrial pressure. There is no evidence of pulmonary hypertension. Great Vessels All visible segments of the aorta are normal in size. The pulmonary artery was not well visualized. There is no dilatation of the ascending aorta measuring 2.80 cm. Venous The inferior vena cava is normal in size and collapses greater than 50% with inspiration. Pericardium/Pleural There is no evidence of pericardial effusion. Prior Study Comparison No significant change compared to prior study dated: 02/02/2024. Measurements 2D Linear Measurements IVSd: 0.76 0.6-0.9/0.6-1.0 cm LVIDd: 4.36 3.9-5.3/4.2-5.9 cm LVIDd Index: 2.79 2.4-3.2/2.2-3.1 cm/m2 LVIDs: 3.05 2.0-3.6 cm LVPWd: 0.75 0.7-1.1 cm LA Diam: 3.20 2.7-3.8/3.0-4.0 cm LAIDs Index: 2.05 1.5-2.3 cm/m2 LV Mass: 124.26 67-162/88-224 g LV Mass Index: 79.66 43-95/49-115 g/m2 LVOT Diam: 1.90 3.0+(-)1.3 cm 2D Systolic Function EF 4C: 57.40 >55% EF 2C: 56.70 >55% EF BiP: 56.80 >55% Mitral Valve MV Pk E: 0.51 MV PK A: 0.94 MV Decel Time: 192.00 E/A: 0.50 E'Lateral: 4.79 E'Medial: 4.57 E/E' Med: 11.20 E/E' Lat: 10.70 PHT: 56.00 MVA PHT: 3.93 Decel Sampson: 2.68 Aortic Valve AoV Pk Rinku: 1.07 AoV Mn Rinku: 0.71 AoV VTI: 0.20 AoV Pk Grad: 5.00 Aov Mn Grad: 2.00 DENIS Cont.VTI: 2.27 LVOT LVOT Pk Rinku: 0.79 LVOT Mn Rinku: 0.55 LVOT VTI: 0.16 LVOT Pk Grad: 2.00 LVOT Mn Grad: 1.00 LVOT Diam: 1.90 LVOT Area: 2.84 Diastolic Function MV Pk E: 0.51 MV Pk A: 0.94 E/A: 0.50 E'Medial: 4.57 E/E' Med: 11.20 E' Laterial: 4.79 E/E' Lat: 10.70 Right Ventricle TAPSE (mm): 18.10 TVS' Rinku: 9.25 Tricuspid Valve TR Pk Rinku: 1.73 TR Pk Grad: 12.00 RA Press: 8.00 RVSP: 20.00 Great Vessels Aorta Sinus of Valsalva: 2.90 2.0-3.5 cm Ao Asc: 2.80 2.1-3.4 cm Pulmonary Veins Pulm Vein S/D 1.80 Pulmonary Valve PV Pk Rinku: 0.77 Peak PV Grad: 2.00 Updated in Other Vendor System with Status of Final Chris Carrillo MD electronically signed on 07/06/2025 11:09:16 AM with status of Final
== END ==
LOC: HO.CARD 12:54
PROVIDERS: PCP Registered Nurse; Visit Provider Registered Nurse
DX: R06.09 Other forms of dyspnea (principal)
CPT/HCPCS: 93306

== ENCOUNTER → 2025-07-05 13:00 | Outpatient (BNV) | payer OTHER, SELFPAY | PROVIDERS: PCP Registered Nurse; Visit Provider Internal Medicine Cardiovascular Disease | DX: I51.89 Other ill-defined heart diseases (principal); R06.09 Other forms of dyspnea | CPT/HCPCS: 93306 ==

== ENCOUNTER 2025-08-27 08:32 | Outpatient (REF) | payer OTHER, SELFPAY ==
--- OUTSIDE RECORDS SUMMARY | 2017-12-05 11:04 | XMS_ITS | Continuity of Care Document ---
Author Organization [facility] Address [address] [place] [address] Care Team Providers Care Rn Physician Office Name Role Phone Obrien OD, Lavender Unavailable Unavailable Advance Directives Directive Yes / No Effective Date File Name No Information Encounters Encounter Description Practice Location Reason(s) For Visit Diagnoses Date Provider Providers Copied on Encounter [facility], [address], [place], [place], [id number], [place]. [address] routine eye exam (chief complaint) No Information Obrien Lavender. [address] [facility], [address], [place], [place], [id number], [place]. tel:[phone] Family History Family Member Type Diagnosis Age At Onset No Information Payers Payer name Insurance type Covered libertarian ID Authoriza tion(s) No Information Social History [...]
--- OUTSIDE RECORDS SUMMARY | 2025-08-27 08:55 | XMS_ITS | Clinical Summary ---
Author Organization [employer] Address [address] [place] [address] [address] [place] [address] Care Team Providers Care Greenstone Polisher Operator Name Role Phone IselaEdna josue ANGELINE Primary Care Provider [phone] Agustín Mahmood MD Unavailable Allergies Active Allergy Reactions Criticality Noted Date Comments Penicillins Rash High 03/03/2023 Other Reaction(s): Rash/Dermatitis Medications Blood Pressure kitIndications: Primary hypertension Check Blood pressure daily and when symptomatic 1 kit 03/03/20 23 Active albuterol 108 (90 Base) MCG/ACT inhaler Inhale 2 puffs every 6 (six) hours if needed for wheezing. Active rosuvastatin (Crestor) 10 MG tablet TAKE 1 TABLET BY MOUTH AT BEDTIME (for cholesterol) 90 tablet 3 09/28/20 24 Active ciclopirox (Penlac) 8 % solution APPLY DAILY TO NAILS, CLEAN MEDICATION OFF NAILS EVERY 3 DAYS WITH alcohol isoproplico 06/04/20 24 Active glucose blood (OneTouch Verio) test stripIndication s:Type 2 diabetes mellitus without complication, with long-term current use of insulin (HCC) 1 each by Other route 3 times daily. 90 each 11/26/19 25 2025 Active Lancets (OneTouch Delica) lancets 30GIndications: Type 2 diabetes mellitus without complication, with long-term current use of insulin (HCC) 1 each by Other route 3 times daily. 90 each 11/26/19 25 2025 Active Multiple Vitamin (Multivitamin) tablet TAKE 1 TABLET BY MOUTH EVERYDAY AT NOON 90 tablet 3 11/28/19 25 Active fluticasone furoate (Arnuity Ellipta) 100 MCG/ACT inhaler Inhale 1 puff Once per day. Rinse mouth with water after use to reduce aftertaste and incidence of candidiasis. Do not swallow. 1 each 02/17/20 25 2025 Active empagliflozin-m etFORMIN ER (Synjardy XR) 25-1000 MG 24 hr tabletIndicatio ns:Type 2 diabetes mellitus without complication, with long-term current use of insulin ([facility]) Take 1 tablet by mouth with breakfast. 90 tablet 3 02/28/20 25 2025 Active levothyroxine (Synthroid, Levoxyl) 75 MCG tabletIndicatio ns:Hypothyroidi sm, unspecified type Take 1 tablet (75 mcg) by mouth in the morning. 90 tablet 1 02/28/20 25 Active lidocaine-prilo felix (Emla) 2.5-2.5 % cream APPLY A THIN LAYER TOPICALLY TO AFFECTED AREA(S) EVERY 8 HOURS NEEDED FOR PAIN 30 g 2 03/05/20 25 Active dilTIAZem ER (Tiazac) 120 MG 24 hr capsule TAKE 1 CAPSULE BY MOUTH EVERYDAY AT NOON 90 capsule 1 05/21/20 25 Active Alcohol Swabs 70 % pads 1 each if needed in the morning and at bedtime (checking blood sugar). 100 each 05/30/20 25 Active melatonin 5 MG tablet TAKE 1 TABLET BY MOUTH AT BEDTIME NEEDED FOR SLEEP 90 tablet 3 06/03/20 25 Active pantoprazole (ProtoNix) 40 MG EC tablet TAKE 1 TABLET BY MOUTH EVERY DAY BEFORE MEALS NEEDED FOR HEARTBURN. DO NOT BREAK, CRUSH, DISSOLVE OR CHEW. 90 tablet 1 06/17/20 25 Active Dulaglutide (Trulicity) 0.75 MG/0.5ML solution auto-injectorIn dications:Type 2 diabetes mellitus without complication, with long-term current use of insulin ([facility]) Inject 0.75 mg under the skin 1 (one) time per week. 2 mL 08/14/20 25 2025 Active Dulaglutide (Trulicity) 0.75 MG/0.5ML solution auto-injectorIn dications:Type 2 diabetes mellitus without complication, with long-term current use of insulin ([facility]) Inject 0.75 mg under the skin 1 (one) time per week. 2 mL 11 11/26/19 25 2024 Discontinued(R eorder (will not trigger notification to Pharmacy)) Active Problems Problem Noted Date Diagnosed Date Osteoarthritis of hip 09/19/2024 Overview (09/19/2024): XR right hip Aug 2024: no acute fx or dislocation. 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 Sep 2024: reporting discomfort in left hip - referred to [facility] for further eval 09/19/24 Cervical spondylosis 09/19/2024 Overview (09/19/2024): - XR Jul 2024: cervical spondylosis and C5-6 disc disease. - Cont with symptomatic management Assessment & Plan (09/19/2024 3:34 PM EST): Has found flexeril helpful for pain at bed time associated with muscle spasms in cervical region. Sent in short term rx. Reviewed med use and safety. Cervical paraspinal muscle spasm 08/06/2024 Assessment & Plan (08/06/2024 5:08 PM EDT): Advised to use tylenol + flexeril (hold for sedation). Advised about dry mouth, constipation and changes in MS with flexeril, should stop it immediately and call PCP or here. Use heat to affected area, advised about stretching exercises and use diclofenac gel bid RTC prn if sxs do not improve in 48h. Order Xray c-spine and shoulder Arthritis of left shoulder region 08/06/2024 Assessment & Plan (09/19/2024 3:35 PM EST): Xray left shoulder Jul 2024: Mild left shoulder degenerative changes Assessment & Plan (08/06/2024 5:09 PM EDT): Pain is most likely radiated from cervical spasm, it may be affecting the rotator cuff See above for rx and fu with PCP Order Xrays Osteoarthritis of left knee 06/13/2024 Assessment & Plan (02/27/2025 3:10 PM EDT): XR completed Aug 2024 c/w degenerative changes Continue with topical supportive measures Oct 2024: [facility] consult, injection declined Follow up for physical therapy referral if interested in future Assessment & Plan (11/28/2024 12:55 PM EST): XR completed Aug 2024 c/w degenerative changes Continue with topical supportive measures Oct 2024: [facility] consult, injection declined Plan for physical therapy Assessment & Plan (09/19/2024 3:36 PM EST): Check XR Continue with topical supportive measures Referral to Ortho placed 09/19/24 Assessment & Plan (06/13/2024 7:34 PM EDT): Check XR Continue with topical supportive measures Consider physical therapy referral Healthcare maintenance 10/16/2023 Overview (02/27/2025): Optometry: 11/26/2024: [facility] @ [facility]. Dental: referral to [facility] 03/14/24 Alzheimer disease 07/01/2023 Overview (06/13/2024): 08/16/23: MRI brain by Dr. Mahmood for Alzheimer's disease and syncope w/ following impression - 1. Mild generalized cerebral volume loss and mild chronic white matter microangiopathy. 2. Otherwise unremarkable noncontrast MRI of the brain. Assessment & Plan (05/29/2025 2:29 PM EDT): Cont following with specialist Encouraged to continue engaging physically and mentally throughout the day Information regarding Alzheimer's Association provided Assessment & Plan (06/13/2024 7:40 PM EDT): Interested in eval with [facility], referral placed. Encouraged to continue engaging physically and mentally throughout the day Asthma 03/06/2023 Assessment & Plan (02/11/2024 8:23 PM EDT): -Symbicort not previously covered by insurance. Sent in Flovent, which did help to improve symptoms. Currently well controlled. Has pending inhaler Asmanex for next refill due to insurance formulary changes. Plan: Asmanex 100mcg/act - 1 puff BID. Rinse mouth after use. Albuterol PRN Assessment & Plan (10/16/2023 9:58 AM EST): -Plan to start controller inhaler. Plan initially for Symbicort, although not initially covered by insurance. Will send in Flovent inhaler while supplies last, and hopefully have covered option for Symbicort or other come next appt Plan: Flovent 44mcg/act - 2 puffs BID Albuterol PRN Assessment & Plan (03/06/2023 3:38 PM EDT): -Type unspecified -Reports well controlled with current regimen: Flovent 2 puffs BID (unsure of dose/puff), Albuterol PRN -Albuterol HFA sent to pharmacy -DME request for nebulizer machine Hypothyroidism 03/06/2023 Overview (02/27/2025): Levothyroxine 75mcg daily Lab Results Component Value Date TSH 2.03 04/24/2024 Assessment & Plan (02/27/2025 3:08 PM EDT): - Will plan to switch to give after breakfast with morning meds as had been difficult to adhere to giving on empty stomach - Repeat TSH level 6 weeks after changing time of admin Assessment & Plan (02/11/2024 8:24 PM EDT): -Levothyroxine decreased 88mcg daily -Repeat TSH pending Assessment & Plan (10/14/2023 7:04 AM EST): Lab Results Component Value Date TSH 0.02 (L) 08/01/2023 -Levothyroxine decreased 100mcg daily -Repeat TSH pending Assessment & Plan (07/01/2023 7:51 AM EDT): Lab Results Component Value Date TSH 66.98 (H) 03/03/2023 -Levothyroxine increased to 125mcg daily -Repeat TSH pending Assessment & Plan (05/02/2023 6:30 PM EDT): Lab Results Component Value Date TSH 66.98 (H) 03/03/2023 -Levothyroxine increased to 125mcg daily -Repeat TSH pending Assessment & Plan (03/06/2023 4:05 PM EDT): -Continues with levothyroxine 100mcg daily -TSH ordered Primary hypertension 03/03/2023 Assessment & Plan (05/29/2025 4:41 PM EDT): -BP readings have been well controlled -Continue with Diltiazem 120mg daily -Encouraged low salt diet and to continue monitoring BP readings at home Assessment & Plan (07/01/2023 8:00 AM EDT): -BP readings have been well controlled at home w/o losartan -Discontinue losartan 50mg daily -Continue with Diltiazem 120mg daily -Encouraged low salt diet and to continue monitoring BP readings at home Assessment & Plan (03/03/2023 10:20 AM EDT): -Continues with losartan 50mg daily -Continues with Diltiazem 120mg daily -BP cuff sent to pharmacy. Plan to monitor BP over the next 2 weeks and bring home readings to follow up appt -Consider referral to Cards Umbilical hernia without obstruction and without gangrene 03/03/2023 Assessment & Plan (07/01/2023 7:50 AM EDT): -5x6cm umbilical hernia that reports has been increasing in size and causing increasing discomfort over the past 2 years -No active N/V/D or abdominal pain on exam -Referral to Surgeon on 03/03/23, reports upcoming surgery in Jul 2023 -ED precautions reviewed Assessment & Plan (03/06/2023 3:34 PM EDT): -5x6cm umbilical hernia that reports has been increasing in size and causing increasing discomfort over the past 2 years -No active N/V/D or abdominal pain on exam today. -Referral to Surgeon on 03/03/23 -ED precautions reviewed Cardiac arrhythmia 03/03/2023 Overview (02/27/2025): History of suspected previous cardiac arrhythmia on diltiazem, HDF for syncopal episode. No known history of CVA or ID ED precautions Cardiology evaluation by [facility] - Dr. Garcia January 2024: Stress test impression: 1. Myocardial perfusion imaging study shows normal myocardial perfusion. 2. Gated LVEF is > 70% during stress and rest 3. Transient ischemic dilatation not present Assessment & Plan (02/27/2025 3:04 PM EDT): - Continues on diltiazem 120mg daily - Stable Assessment & Plan (07/01/2023 7:59 AM EDT): History of ?cardiac arrhythmia on diltiazem, HDF for syncopal episode. No known history of CVA or ID Reports intermittent SOB - possibly related to deconditioning, cardiac, respiratory, or other origin Referral for eval with Cardiology placed 06/29/23 ED precautions Type 2 diabetes mellitus wit hout complication, with long-term current use of insulin 03/03/2023 Overview (05/29/2025): Lab Results Component Value Date HGBA1C 6.2 (A) 05/29/2025 HGBA1C 6.9 (A) 02/27/2025 HGBA1C 7.7 (A) 11/28/2024 HGBA1C 8.4 (H) 03/03/2023 -Microalbumin: WNL (18) in April 2024 -Eye exam: 11/26/2024: [facility]. No evidence of diabetic retinopathy or macular edema. -Foot exam: monofilament WNL 03/14/24, established with podiatry for toe nail clipping -Dental: established with dental home -PNA: PCV20 06/29/23 UTD -Tdap/Td: 10/14/23 UTD -ACEi/ARB: no -Statin: yes -ASA: no Lab Results Component Value Date CHOL 177 04/24/2024 TRIG 180 (H) 04/24/2024 TRIG 229 (H) 03/03/2023 HDL 62 04/24/2024 LDLCHOLCAL 79 04/24/2024 Lifestyle: Encouraged regular movement and aerobic exercise for improved glycemic control Encouraged daily foot checks Encouraged lean protein snacks and to avoid foods high in sugar and simple carbohydrates Medications: Jardiance 25mg-Metformin 1000mg daily Trulicity 0.75mg subcutaneous weekly Treatment Goals: A1c goal: <8% FBG goal: <140 2 hour post prandial goal: <180 Assessment & Plan (05/29/2025 4:40 PM EDT): - Well controlled, cont with current plan - Update labs Assessment & Plan (02/27/2025 3:06 PM EDT): - Congratulated on improvement in A1c - Plan: decrease pill burden by combo-pill Jardiance-Metformin Assessment & Plan (11/28/2024 12:57 PM EST): Congratulated on improvement in A1c. Cont current therapy. Assessment & Plan (09/19/2024 3:39 PM EST): Discussed goals of care and quality of life. Currently with good appetite and enjoying food. Does not enjoy checking finger sticks, low risk of hypoglycemia. Shared decision making: - Start Trulicity 0.75mg subcutaneous weekly. Reviewed med use and SE - Goal to decrease frequency of finger sticks. Will primarily use with changes of medications, when symptomatic, or PRN Assessment & Plan (03/14/2024 5:48 PM EDT): Cont regimen as above Referral to podiatry for assistance with toe nail care Assessment & Plan (02/11/2024 8:19 PM EDT): A1c above goal, increased from 8.4% in Oct 2023. Plan to initiate Jardiance 10mg daily. Reviewed med use and SE. Assessment & Plan (10/16/2023 9:50 AM EST): Previous A1c 8.7%, improving BG control although not yet at goal. Defer additional medication at this time, cont plan as above Assessment & Plan (07/01/2023 8:01 AM EDT): Lab Results Component Value Date HGBA1C 8.7 (A) 06/29/2023 Shared decision making to discontinue insulin and continue with metformin as monotherapy Encourage lifestyle interventions Assessment & Plan (05/02/2023 6:29 PM EDT): Lab Results Component Value Date HGBA1C 8.4 (H) 03/03/2023 Encounters Date Type Department Care Team Description 08/26/2025 Travel 08/12/2025 Refill [facility] [address] [place] [address] Edna Norris FNP Type 2 diabetes mellitus without complication, with long-term current use of insulin (CMS/HCC) 06/20/2025 Telephone [facility] [address] [place], [place] [phone] Edna Norris FNP Letter of Medical Necessity: Wheelchair 06/16/2025 Refill [facility] [address] [place] [address] Edna Norris FNP 06/02/2025 Refill [facility] [address] [place] [address] Edna Norris FNP 05/29/2025 10:30 AM EDT Office Visit [facility] [address] [place] [address] Edna Norris FNP Type 2 diabetes mellitus without complication, with long-term current use of insulin (CMS/HCC) (Primary Dx); Healthcare maintenance; HERNANDEZ (dyspnea on exertion); Alzheimer disease (CMS/HCC); Dietary counseling; Exercise counseling; Primary hypertension 05/29/2025 Travel 05/28/2025 Telephone [facility] [address] [place] [address] Edna Norris FNP CHART PREP from Last 3 Months Immunizations Immunization Administration Dates Next Due Influenza High-dose Quadrivalent Preservative Fr ee 08/05/2023 Influenza, High Dose Seasonal, Preservative Free 09/06/2024 Pneumococcal Conjugate PCV 20 06/29/2023 RSV Bivalent 10/15/2024 Tdap 10/14/2023 Zoster, Recombinant 09/05/2023,07/04/2023 Social History Tobacco Use Types Packs/Day Years Used Date Smoking Tobacco: Former Cigarettes 1 5 Passive Smoke Exposure: Past Smokeless Tobacco: Never Tobacco Cessation:Counseling Given: Not Answered Alcohol Use Standard Drinks/Week Comments Never 0 (1 standard drink = 0.6 oz pur e alcohol) Depression Answer Date Recorded Patient Health Questionnaire-9 Score 0 05/29/2025 Patient Health Questionnaire-9 Score 0 05/29/2025 Last PHQ-9: Questionnaire Data Not on file 0 05/29/2025 Housing Stability Answer Date Recorded What is your housing situation today? I have que pal[place] 05/29/[address] you li ve. Do you have problems with any of the following? None of the above 05/29/2025 Food Insecurity Answer Date Recorded Within the past 12 months, y ou worried that your food would run out before you got money to buy more: Never True 05/29/2025 Within the past 12 months,th e food you bought just didn't last and you didn't have enough money to get more: Never True Transportation Answer Date Recorded In the past 12 months, has l ack of transportation kept you from medical appts, meetings, work or from getting things needed for daily living? No 05/29/2025 Utilities Answer Date Recorded In the past 12 months, has t he electric, gas, oil or water company threatened to shut off services in your home? No 05/29/2025 Depression Answer Date Recorded Patient Health Questionnaire-2 Score 0 05/29/2025 Internet Access Answer Date Recorded Internet Access Q1 Yes 06/12/2025 Internet Access Q2 Not on file 06/12/2025 Comments No Sex and Gender Information Value Date Recorded Sex Assigned at Female 01/21/2023 2:14 PM EST Legal Sex Female 2:13 PM EST Gender Identity Female 01/21/2023 2:14 PM EST Sexual Orientation Straight 01/21/2023 2: 14 PM EST Last Filed Vital Signs Vital Sign Reading Time Taken Comments Blood Pressure 130/68 05/29/2025 10:30 AM EDT Pulse 65 05/29/2025 10:30 AM EDT Temperature 36.2 C (97.2 F) 05/29/2025 10:30 AM EDT Respiratory Rate 20 05/29/2025 10:30 AM EDT Oxygen Saturation 95% 05/29/2025 10:30 AM EDT Inhaled Oxygen Concentration - - Weight 64.1 kg (141 lb 6.4 oz) 05/29/2025 10:30 AM EDT Height 144.8 cm (4' 9 ) 05/29/2025 10:30 AM EDT Body Mass Index 30.6 05/29/2025 10:30 AM EDT Plan of Treatment Upcoming Encounters Date Type Department Care Team (Late st Contact Info) Description 08/27/2025 2:00 PM EDT Immunization [facility] [address] [place] [phone] 09/11/2025 10:30 AM EDT Office Visit [facility] [address] [place] [phone] Edna Norris, ANGELINE [address] [place] [address] Health Maintenance Due Date Last Done Comments Eye Exam 1955 Diabetes: Foot Exam 03/14/2025 03/14/2024, 03/14/2024, 03/14/2024, Additional history exists Diabetes: Urine Protein Screening 04/24/2025 04/24/2024, 03/03/2023 Lipid Panel 04/24/2025 04/24/2024, 03/03/2023 COVID-19 Vaccine ( season) 2025 Influenza Vaccine (#1) 2025 09/06/2024, 2022 Diabetes: Hemoglobin A1C 11/29/2025 025, 02/27/2025, 11/28/2024, Additional history exists Alcohol/Substance Use Screening 05/29/2026 05/29/2025 Depression Screening 05/29/2026 05/29/2025, 05/29/20 SDOH Screening 05/29/2026 05/29/2025 Tobacco Screening 05/29/2026 05/29/2025 DTaP/Tdap/Td Vaccines (2 - Td or Tdap) 10/14/2033 10/14/2023 Hepatitis C Screening Completed 03/03/2023 Pneumococcal Vaccine: 50+ Years Completed 06/29/2023 Zoster Vaccines Completed 09/05/2023, 07/04/2023 RSV Patients and Patients Aged 60 years or older Completed 10/15/2024 HIB Vaccines Aged Out No longer eligi ble based on patient's age to complete this topic HPV Vaccines Aged Out No longer eligi ble based on patient's age to complete this topic Hepatitis A Vaccines Aged Out No long er eligible based on patient's age to complete this topic Hepatitis B Vaccines Aged Out No long er eligible based on patient's age to complete this topic IPV Vaccines Aged Out No longer eligi ble based on patient's age to complete this topic Meningococcal B Vaccine Aged Out No l onger eligible based on patient's age to complete this topic Meningococcal Vaccine Aged Out No cindy renae eligible based on patient's age to complete this topic RSV under 20 months Aged Out No longe r eligible based on patient's age to complete this topic Rotavirus Vaccines Aged Out No longer eligible based on patient's age to complete this topic Goals Goal Patient Goal Type Associated Problems Recent Progress Patient-Stated? Author Blood Pressure < 140/90 Blood Pressure 130/68(2024 10:30 AM EDT) No Tricia Oliver PharmD Hemoglobin A1c < 8 Result Component 6.2( 10:44 AM EDT) No Mohamud Alcantara Procedures Procedure Name Priority Date/Time Associated Diagnosis Comments POCT GLYCATED HEMOGLOBIN, TOTAL Routine 05/29/2025 10:44 AM EDT Type 2 diabetes mellitus without complication, with long-term current use of insulin ([facility]) POCT GLUCOSE Routine 05/29/2025 10:37 AM EDT Type 2 diabetes mellitus without complication, with long-term current use of insulin (CMS/[facility]) ALBUMIN, RANDOM URINE W/CREATININE Routine 04/24/2024 8:18 AM EDT Type 2 diabetes mellitus without complication, with long-term current use of insulin ([facility]) LIPID PANEL, STANDARD Routine 04/24/2024 8:18 AM EDT Type 2 diabetes mellitus without complication, with long-term current use of insulin (CMS/HCC) HEPATITIS C AB W/REFL TO HCV RNA, QN, PCR Routine 03/03/2023 9:58 AM EDT Routine health maintenance from Last 3 Months or Most Recently Relevant to Health Maintenance Results * (ABNORMAL) POCT HGB A1C (05/29/2025 10:44 AM EDT) Hemoglobin A1C 6.2(A) 4.0 - 5.7 % QC Media Lot # [id number] Lot# Expiration Date Blood 05/29/2025 10:4 4 AM EDT Edna Chatterfly ROPER OPERATOR POINT OF CARE TEST ENTER/EDIT ORDERABLES Final Result * POCT Glucose (05/29/2025 10:37 AM EDT) Glucose Blood, POC 88 60 - 200 mg/dL QC Media Lot # [id number] Lot# Expiration Date [id number] Blood Capillary blood specimen / Unknown 05/29/2025 10:37 AM EDT Edna Chatterfly ROPER OPERATOR POINT OF CARE TEST ENTER/EDIT ORDERABLES Final Result * Albumin, Random Urine W/Creatinine (04/24/2024 8:18 AM EDT) Creatinine, Urine 73.86 mg/dL [facility] Microalbumin Urine 14.0 mg/L [facility] Microalbum Creatinine Ratio Ur 18.9 <30 ug/mg cr [facility] Comment:Albumin/Creatinine R at Reference Ranges: Normal: < 30 ug/mg creatinine Microalbuminuria: 30 - 300 ug/mg creatinineClinical Albuminuria: > 300 ug/mg creatinine Urine 04/24/2024 8:18 AM EDT 04/24/2024 11:14 AM EDT Ednacristiane Weissliat [facility] URINE ORDERABLES Final Res ult Performing Organization Address [facility] Co de Phone Number [facility] [address] [place] [address] [phone] * (ABNORMAL) Lipid Panel, Standard (04/24/2024 8:18 AM EDT) Triglycerides 180(H) <150 mg/dL [facility] Comment:Desirable Triglyceri de: less than 150 mg/dLBorderline High Triglyceride 150-199 mg/dLHigh Triglyceride: 200-499 mg/dLVery High Triglyceride: greater than or equal to 5OO mg/dL Cholesterol 177 <200 mg/dL [facility] Comment:Desirable Cholestero l: less than 200 mg/dLBorderline High Cholesterol: 200-239 mg/dLHigh Cholesterol: greater than 239 mg/dL LDL Cholesterol Calculated 79 <100 mg/dL [facility] Comment:Desirable LDL: less than 100 mg/dLNear Optimal/Above Optimal LDL: 110- 129 mg/dLBorderline High LDL: 130-159 mg/dLHigh LDL: 160-189 mg/dLVery High LDL: greater than or equal to 190 mg/dL HDL Cholesterol 62 >40 mg/dL [facility] Comment:Desirable HDL: great er than 40 mg/dL Note: This HDL assay may give artificially low results in patients with liver disease. Blood Venous blood specimen / Unknown 04/24/2024 8:18 AM EDT 04/24/2024 11:09 AM EDT us Edna Norris ROPER OPERATOR LAB BLOOD ORDERABLES Final Res ult Performing Organization Address [facility]/ZIP Co de Phone Number [facility] [address] [place] [address] [phone] * Hepatitis C Antibody with Reflex to HCV, RNA, Quantitative, Real-Time PCR (03/03/2023 9:58 AM EDT) Hepatitis C Antibody NON-REACT SYLVIE NON-REACT SYLVIE SHADOW [facility] Index 0.08 <1.00 [facility] Comment: HCV antibody was non-reactive. There is no laboratory evidence of HCV infection. In most cases, no further action is required. However, if recent HCV exposure is suspected, a test for HCV RNA (test code 83261) is suggested. For additional information please refer to [email or web address]/faq/[email or web address] (This link is being provided for informational/ educational purposes only.) Blood Venous blood specimen / Unknown 03/03/2023 9:58 AM EDT 03/03/2023 9:59 AM EDT Narrative [facility] - 03/07/2023 5:30 PM EDT FASTING:NO FASTING: NO Edna Norris ROPER OPERATOR LAB BLOOD ORDERABLES Final Res ult [facility] [address] [address], [place] [address] [facility] [address] [place] [address] from Last 3 Months or Most Recently Relevant to Health Maintenance Insurance [facility] LONG TERM OPTIONS (O D-SNP) KATIE RUSH [id number] Care Teams [place] Polisher Operator Relationship Specialty Start Date End Date Edna Norris FNP [address] [place] [address] PCP - General Family Medicine 03/02/23 Agustín Mahmood MD [address] [place] [address] [place] [address] Neurology 09/19/24
--- OUTSIDE RECORDS SUMMARY | 2025-08-27 08:55 | XMS_ITS | Encounter Summary ---
Author Organization [employer] Address [address] [place] [address] 7 [place] [address] Care Team Providers Care Regional Forester Name Role Phone JrOrtegacristiane MARCUS Primary Care Provider [phone] Agustín Mahmood MD Unavailable [phone] Reason for Referral * Consultation (Routine) - Pending Review Specialty Diagnoses / Procedures Referred By Snow almazan Referred To Contact Pharmacy Diagnoses Type 2 diabetes mellitus without complication, with long-term current use of insulin (HCC) Hypothyroidism, unspecified type Erika Motta MD [address] [place] [address] Phone: tel: fax: Referral ID Status Reason Start Date Expiration Date Visits Requested Visits Authorized [id number] Pending Review Continuity of Care 12/12/2024 12/12/2025 6 6 Scheduling Instructions Ongoing Medbox care Encounter Details Date Type Department Care Team (Late st Contact Info) Description 12/12/2024 Orders Only [facility] [address] [place], [place] [phone] Erika Motta MD [address] [place] [address] Type 2 diabetes mellitus without complication, with long-term current use of insulin (CMS/HCC) (Primary Dx); Hypothyroidism, unspecified type Social History Tobacco Use Types Packs/Day Years Used Date Smoking Tobacco: Former Cigarettes 1 5 Passive Smoke Exposure: Past Smokeless Tobacco: Never Alcohol Use Standard Drinks/Week Comments Never 0 (1 standard drink = 0.6 oz pur e alcohol) Depression Answer Date Recorded Patient Health Questionnaire-9 Score 0 03/14/2024 Patient Health Questionnaire-9 Score 0 03/14/2024 Last PHQ-9: Questionnaire Data Not on file 0 03/14/2024 Housing Stability Answer Date Recorded What is your housing situation today? I have que pal[place] 03/14/[address] you li ve. Do you have problems with any of the following? None of the above 03/14/2024 Food Insecurity Answer Date Recorded Within the past 12 months, y ou worried that your food would run out before you got money to buy more: Never True 03/14/2024 Within the past 12 months,th e food you bought just didn't last and you didn't have enough money to get more: Never True 11/2023 Transportation Answer Date Recorded In the past 12 months, has l ack of transportation kept you from medical appts, meetings, work or from getting things needed for daily living? No 03/14/2024 Utilities Answer Date Recorded In the past 12 months, has t he electric, gas, oil or water company threatened to shut off services in your home? No 03/14/2024 Depression Answer Date Recorded Patient Health Questionnaire-2 Score 0 03/14/2024 Internet Access Answer Date Recorded Internet Access Q1 No 07/16/2024 Internet Access Q2 I do not want or need it 12/2023 Comments No Sex and Gender Information Value Date Recorded Sex Assigned at Female 01/21/2023 2:14 PM EST Legal Sex Female 2:13 PM EST Gender Identity Female 01/21/2023 2:14 PM EST Sexual Orientation Straight 01/21/2023 2: 14 PM EST documented as of this encounter Plan of Treatment Upcoming Encounters Date Type Department Care Team (Late st Contact Info) Description 08/27/2025 2:00 PM EDT Immunization [facility] [address] [place] [address] 09/11/2025 10:30 AM EDT Office Visit [facility] [address] [place] [address] Edna Norris FNP [address] [place], [place] [phone] Scheduled Referrals Name Type Priority Associated Diagnoses Orde r Schedule Referral to Pharmacy MTM Outpatient Referral Routine Type 2 diabetes mellitus without complication, with long-term current use of insulin ([facility]) Hypothyroidism, unspecified type Ordered: 12/12/2024 documented as of this encounter Goals Goal Patient Goal Type Associated Problems Recent Progress Patient-Stated? Author Blood Pressure < 140/90 Blood Pressure 130/68(2024 10:30 AM EDT) No Tricia Oliver PharmD Hemoglobin A1c < 8 Result Component 6.2( 10:44 AM EDT) No Mohamud Alcantara documented as of this encounter Visit Diagnoses Diagnosis Type 2 diabetes mellitus without complication, with long-term current use of insulin ([facility])- Primary Hypothyroidism, unspecified type documented in this encounter Additional Health Concerns Assessment Noted Time PHQ-9 Depression Total Score: 0 03/14/20 24 9:59 AM EDT documented as of this encounter Care Teams Regional Forester Relationship Specialty Start Date End Date Edna Norris FNP [address] [place] [address] PCP - General Family Medicine 03/02/23 Agustín Mahmood MD [address] [place] [address] [place] [address] Neurology 09/19/24 documented as of this encounter
--- OUTSIDE RECORDS SUMMARY | 2025-08-27 08:55 | XMS_ITS | Encounter Summary ---
Author Organization [employer] Address [address] [facility] 7t [place] [address] Care Team Providers Care Supervisor Pipelines Name Role Phone Edna Norris Primary Care Provider Agustín Mahmood MD Unavailable [phone] Reason for Visit * Reason Onset Date Comments Med Refill 10/17/2023 Encounter Details Date Type Department Care Team (Late st Contact Info) Description 10/17/2023 Refill [facility] [address] [place] [address] Edna Norris FNP [address] [place], [place] [phone] Social History Tobacco Use Types Packs/Day Years [...] Info) Description 08/27/2025 2:00 PM EDT Immunization [facility] [address] [place] [address] 09/11/2025 10:30 AM EDT Office Visit [facility] [address] [place] [address] Edna Norris FNP [address] [place] [address] documented as of this encounter Goals Goal Patient Goal Type Associated Problems Recent Progress Patient-Stated? Author Blood Pressure < 140/90 Blood Pressure 130/68( 025 10:30 AM EDT) No Tricia Oliver, PharmD documented as of this encounter Visit Diagnoses Not on filedocumented in this encounter Additional Health Concerns Assessment Noted Time PHQ-9 Depression Total Score: 0 03/03/20 23 8:56 AM EDT documented as of this encounter Care Teams Supervisor Pipelines Relationship Specialty Start Date End Date Edna Norris FNP [address] [place] [address] PCP - General Family Medicine 03/02/23 Agustín Mahmood MD [address] [place] [address] Dr [address] [place] [address] Neurology 09/19/24 documented as of this encounter
--- OUTSIDE RECORDS SUMMARY | 2025-08-27 08:55 | XMS_ITS | Encounter Summary ---
Author Organization [employer] Address [address] [facility] 7t [place] [address] Care Team Providers Care Bottom Filler Name Role Phone Edna Norris Primary Care Provider [phone] Agustín Mahmood MD Unavailable [phone] Reason for Visit * Reason Comments Med Refill Encounter Details Date Type Department Care Team (Late st Contact Info) Description 12/12/2023 Refill [facility] [address] [place] [address] Edna Norris FNP [address] [place], [place] [phone] Social History Tobacco Use Types Packs/Day Years [...] Info) Description 08/27/2025 2:00 PM EDT Immunization [facility] [address] [place] [address] 09/11/2025 10:30 AM EDT Office Visit [facility] [address] [place] [address] Edna Norris FNP [address] [place] [address] documented as of this encounter Goals Goal [...] Time PHQ-9 Depression Total Score: 0 03/03/20 8:56 AM EDT documented as of this encounter Care Teams Bottom Filler Relationship Specialty Start Date End Date Edna Norris FNP [address] [place] [address] PCP - General Family Medicine 03/02/23 Agustín Mahmood MD [address] [place] [address] [place] [address] Neurology 09/19/24 documented as of this encounter
--- OUTSIDE RECORDS SUMMARY | 2025-08-27 08:55 | XMS_ITS | Encounter Summary ---
Author Organization [employer] Address [address] [facility] 7t [place] [address] Care Team Providers Care Test Tech Name Role Phone Edna Norris Primary Care Provider [phone] Agustín Mahmood MD Unavailable [phone] Reason for Visit * Reason Onset Date Comments Med Refill 10/17/2023 Encounter Details Date Type Department Care Team ([facility] st Contact Info) Description 10/17/2023 Refill [facility] MED & PEDS [address] [place] [address] Edna Norris FNP [address] [place], [place] [phone] Social History Tobacco Use Types Packs/Day Years [...] Info) Description 08/27/2025 2:00 PM EDT Immunization [address] [address] 09/11/2025 10:30 AM EDT Office Visit [facility] MED[facility]INE [address] [place] [address] Edna Norris FNP [address] [place] [address] documented as of this encounter Goals Goal [...] documented as of this encounter Care Teams Test Tech Relationship Specialty Start Date End Date Edna Norris FNP [address] [place] [address] PCP - General Family Medicine 03/02/23 Agustín Mahmood MD [address] [place] [address] [place] [address] Neurology 09/19/24 documented as of this encounter
--- OUTSIDE RECORDS SUMMARY | 2025-08-27 08:55 | XMS_ITS | Encounter Summary ---
Author Organization [employer] Address [address] [facility] [address] 7t [place] [address] Care Team Providers Care Storage Specialist Name Role Phone Edna Norris ANGELINE Primary Care Provider [phone] Agustín Mahmood MD Unavailable [phone] Encounter Details Date Type Department Care Team (Latest Contact Info) Description 08/26/2025 Travel Social History Tobacco Use Types Packs/Day Years [...] Info) Description 08/27/2025 2:00 PM EDT Immunization [facility] [address] [place] [address] 09/11/2025 10:30 AM EDT Office Visit [facility] [address] [place] [address] Edna Norris FNP [address] [place] [address] documented as of this encounter Goals Goal [...] Noted Time PHQ-9 Depression Total Score: 0 05/29/20 25 10:29 AM EDT documented as of this encounter Care Teams Storage Specialist Relationship Specialty Start Date End Date Edna Norris FNP [address] [place] [address] PCP - General Family Medicine 03/02/23 Agustín Mahmood MD [address] [place] [address] Dr Brock [facility] [address] Neurology 09/19/24 documented as of this encounter
--- OUTSIDE RECORDS SUMMARY | 2025-08-27 08:55 | XMS_ITS | Encounter Summary ---
Author Organization [employer] Address [address] [facility] 7t [place] [address] Care Team Providers Care Landscape Architect And Planner Name Role Phone Edna Norris Primary Care Provider [phone] Agustín Mahmood MD Unavailable [phone] Reason for Visit * Reason Onset Date Comments Med Refill 10/14/2023 Encounter Details Date Type Department Care Team ([facility] st Contact Info) Description 10/14/2023 Refill [facility] MED & PEDS [address] [place] [address] Edna Norris FNP [address] [place], [place] [phone] Social History Tobacco Use Types Packs/Day Years [...] Info) Description 08/27/2025 2:00 PM EDT Immunization [address] [address] 09/11/2025 10:30 AM EDT Office Visit [facility] [address] [place] [address] Edna Norris FNP [address] [place] [address] documented as of this encounter Goals Goal [...] documented as of this encounter Care Teams Landscape Architect And Planner Relationship Specialty Start Date End Date Edna Norris FNP [address] [place] [address] PCP - General Family Medicine 03/02/23 Agustín Mahmood MD [address] [place] [address] [place] [address] Neurology 09/19/24 documented as of this encounter
--- OUTSIDE RECORDS SUMMARY | 2025-08-27 08:55 | XMS_ITS | Encounter Summary ---
Author Organization [employer] Address 75 [facility] 7t [place] [address] Care Team Providers Care Director Of Infection Prevention Name Role Phone Edna Norris Primary Care Provider [phone] Agustín Mahmood MD Unavailable [phone] Encounter Details Date Type Department Care Team ([facility] st Contact Info) Description 04/25/2024 Orders Only [facility] & PEDS [address] [place] [address] Edna Norris FNP [address] [place] [address] Hyperkalemia (Primary Dx) Social History Tobacco Use Types Packs/Day Years [...] Recorded Patient Health Questionnaire-2 Score 0 03/14/2024 Comments Unknown Sex and Gender Information Value [...] 08/27/2025 2:00 PM EDT Immunization [facility] MEDICINE [address] [place] [address] 09/11/2025 10:30 AM EDT Office Visit [facility] MEDICINE [address] [place] [address] Edna Norris, TOP WADDY [address] [place] [address] documented as of this encounter Goals Goal Patient Goal Type Associated Problems Recent Progress Patient-Stated? Author Blood Pressure < 140/90 Blood Pressure 130/68(2024 10:30 AM EDT) No Tricia Oliver PharmD Hemoglobin A1c < 8 Result Component 6.2( 10:44 AM EDT) No Mohamud Alcantara documented as of this encounter Procedures Procedure Name Priority Date/Time Associated Diagnosis Comments BASIC METABOLIC PANEL Routine 05/10/2024 9:53 AM EDT Hyperkalemia documented in this encounter Results * (ABNORMAL) Basic Metabolic Panel (05/10/2024 9:53 AM EDT) Sodium 137 135 - 145 mmol/L [facility] Potassium 4.7 3.3 - 5.1 mmol/L [facility] Chloride 103 96 - 108 mmol/L [facility] Carbon Dioxide 24 22 - 29 mmol/L [facility] Anion Gap 15 12 - 20 [facility] Urea Nitrogen (BUN) 11 9 - 16 mg/dL [facility] Creatinine, Serum 0.76 0.5 - 1.4 mg/dL [facility] Estimated Glomerular Filt Rate >60 [facility] Comment:NOTE: For -Am erican individuals, multiply the result by 1.210.Chronic Kidney Disease: Estimated GFR < 60 mL/min/[id number] Kidney Disease: Estimated GFR < 15 mL/min/1.73m2 Glucose 183(H) 60 - 115 mg/dL [facility] Calcium 9.7 8.4 - 10.2 mg/dL [facility] Blood Venous blood specimen / Unknown 05/10/2024 9:53 AM EDT 05/10/2024 11:17 AM EDT us Edna MARCUS LAB BLOOD ORDERABLES Final Res ult [facility] [address] [place] [address] [phone] documented in this encounter Visit Diagnoses Diagnosis Hyperkalemia- Primary Hyperpotassemia documented in this encounter Additional Health Concerns Assessment Noted Time PHQ-9 Depression Total Score: 0 03/14/20 24 9:59 AM EDT documented as of this encounter Care Teams Director Of Infection Prevention Relationship Specialty Start Date End Date Edna Norris FNP [address] [place] [address] PCP - General Family Medicine 03/02/23 Agustín Mahmood MD [address] [place] [address] [place] [address] Neurology 09/19/24 documented as of this encounter
[2025-08-27 11:31] LABS: MANUAL DIFF FLAG NO
[2025-08-27 11:59] LABS: Hematocrit 43.6 % (37.0-47.0); Hemoglobin 13.9 g/dl (12.0-16.0); Imm Gran Abs Auto 0.02 X10*3/uL (0.00-0.03); Imm Gran Pct Auto 0.3 % (0.0-0.4); Lymphocytes Absolute Auto 2.0 X10*3/uL (1.2-4.9); Mean Corpuscular HGB Conc 31.9 g/dl (31.0-35.0); Mean Corpuscular Hemoglobin 27.5 pg (27.0-33.0); Mean Corpuscular Volume 86.2 fL (80.0-98.0); NRBC Abs Auto 0.000 X10*3/uL (0.0-0.012); NRBC Pct Auto 0.0 /100WBC (0.0-0.2); Platelet Count 360 X10*3/uL (160-400); Red Blood Count 5.06 X10*6/uL (4.20-5.50); White Blood Count 6.3 X10*3/uL (4.8-10.8)
[2025-08-27 12:22] LABS: Microalbum/Creatinine Ratio Ur 10.1 ug/mg cr (<30)
[2025-08-27 12:42] LABS: Alanine Aminotransferase 6 U/L (0-31); Albumin Level 4.4 g/dL (3.5-5.0); Alkaline Phosphatase 67 U/L (39-117); Anion Gap 14 (12-20); Aspartate Amino Transferase 21 U/L (5-31); Blood Urea Nitrogen 13 mg/dL (9-16); Calcium 9.8 mg/dL (8.4-10.2); Carbon Dioxide 25 mmol/L (22-29); Chloride 108 mmol/L (96-108); Cholesterol 145 mg/dL (<200); Estimated Glomerular Filt Rate > 60; HDL Cholesterol 58 mg/dL (>40); Potassium 5.5 mmol/L (3.3-5.1); Sodium 141 mmol/L (135-145); Total Protein 7.5 g/dL (6.5-8.0); Triglycerides 129 mg/dL (<150)
[2025-08-27 12:43] LABS: Vitamin B12 208 pg/mL (200-900)
== END 2025-08-27 08:33 | disposition home or self-care (01) ==
LOC: HO.HHCL 08:32
PROVIDERS: PCP Registered Nurse; Visit Provider Registered Nurse
DX: Z00.00 Encounter for general adult medical examination without abnormal findings (principal); E11.9 Type 2 diabetes mellitus without complications; E03.9 Hypothyroidism, unspecified; Z79.4 Long term (current) use of insulin
CPT/HCPCS: 36415; 80053; 80061; 82043; 82570; 82607; 84443; 85025

== ENCOUNTER 2025-09-04 18:45 | Emergency (ER) | payer OTHER, SELFPAY ==
--- OUTSIDE RECORDS SUMMARY | 2017-12-05 11:04 | XMS_ITS | Continuity of Care Document ---
Author Organization [facility] Address [address] [place] [address] Care Team Providers Care Sales Development Representative Name Role Phone Obrien OD, Lavender Unavailable Unavailable Advance Directives Directive Yes / No Effective Date File Name No Information Encounters Encounter Description Practice Location Reason(s) For Visit Diagnoses Date Provider Providers Copied on Encounter [facility], [address], [place], [place], [id number], [place]. [address] routine eye exam (chief complaint) No Information Obrien Lavender. [address] [facility], [address], [place], [place], [address], [place]. tel:[phone] Family History Family Member Type Diagnosis Age At Onset No Information Payers Payer name Insurance type Covered green party ID Authoriza tion(s) No Information Social [...]
--- NOTE | 2025-09-04 | ECG_ITS ---
Test Reason : WEAKNESS Blood Pressure : */* mmHG Vent. Rate : 64 BPM Atrial Rate : 64 BPM P-R Int : 154 ms QRS Dur : 66 ms QT Int : 414 ms P-R-T Axes : 65 -3 29 degrees QTcB Int : 427 ms Normal sinus rhythm Septal infarct (cited on or before 12-Jun-2023) Abnormal ECG When compared with ECG of 12-Jun-2023 16:26, No significant change was found Referred By: Birdie John Electronically Signed By: MITCHELL FORD MD
--- NOTE | ~2025-09-04 | CT_ITS ---
CLINICAL HISTORY: ams CT head without contrast Comparison: None provided Findings: No acute intracranial fluid collection or hematoma. Moderate chronic white matter disease with volume loss. No acute process in sinuses or mastoids. No acute bony abnormality. Impression: No acute intracranial process This document has been electronically signed by: Darian Leal MD on 09/04/2025 22:04:50
[2025-09-04 18:53] VITALS: BP 178/57; PULSE 74; O2SAT 97
--- NOTE | 2025-09-04 18:53 | ED_ITS ---
HPI - General Adult General Chief complaint: Altered Mental Status Stated complaint: AMS per family Source: patient Mode of arrival: ambulatory Limitations: no limitations History of Present Illness ED Provider: Dr. John HPI narrative: 79-year-old female presented hospital today for evaluation of likely a syncopal episode. Daughter noticed that patient was in a recliner. She had a episode of unresponsiveness where she was clenching her teeth. No sign of seizure-like activity in the peripheral extremities. She has a history of hypertension thyroid disease. Osteoarthritis. Daughter stated that took approximately 25 minutes before patient has returned back to baseline behavior. Patient is not complaining of any chest pain no abdominal pain no shortness of breath. She is back to her baseline at this time. No fever no recent illness no sick contacts at home. Related Data Home Medications ?Medication ?Instructions ?Recorded ?Confirmed albuterol sulfate 2.5 mg/3 mL 2.5 mg inhalation Q4H VA N wheezing 06/08/23 10/31/24 (0.083 %) solution for nebulization albuterol sulfate 90 mcg/actuation 2 puff inhalation Q 4H PRN 06/08/23 10/31/24 aerosol inhaler Shortness Of Breath Or Wheez ing blood pressure test kit-large #1 ea 06/08/23 10/18/23 diltiazem HCl 120 mg capsule,24 120 mg PO QAM 06/08/23 10/31/24 hr,extended release levothyroxine 125 mcg tablet 125 mcg PO QAM 06/08/23 1 01/01/24 melatonin 5 mg tablet 5 mg PO BEDTIME PRN Sleep 10/31/24 multivitamin 1 tab PO DAILY 06/13/2310/14 fluticasone propionate 44 1 puff inhalation BID 10/31/24 mcg/actuation HFA aerosol inhaler (Flovent HFA) metformin 1,000 mg tablet 1,000 mg PO BID 10/18/23 rosuvastatin 10 mg tablet 10 mg PO DAILY 10/18/2310/14 dulaglutide 0.75 mg/0.5 mL mg subcut 10/31/24 10/31/24 subcutaneous pen injector (Trulicity) Previous Rx's ?Medication ?Instructions ?Recorded celecoxib 200 mg capsule 200 mg PO BID #60 caps 04/03 Allergies Allergy/AdvReac Type Severity Reaction Status Date / Time Penicillins Allergy Severe Rash Verified 09/04/25 19:23 Review of Systems 2 Review of Systems: Pertinent review of systems as mentioned in HPI. All other system otherwise negative. [facility] Past Medical History [facility] Narrative: Medical history as mentioned in HPI Medical History (Updated 09/04/25 @ 23:52 by Birdie John DO) Dementia Umbilical hernia Thyroid disease Arthritis Hypertension Surgical History History of female sterilization History of shoulder surgery History of carpal tunnel surgery Family History Family History (Updated 10/18/23 @ 13:56 by Casi Driscoll) Mother Heart problem Other Colon cancer Social History Social History (Updated 10/31/24 @ 10:58 by DIXIE Segal) Alcohol intake: never Patient Tobacco Use Status: Never used Tobacco Smoked in Last 30 Days: No Use of substances other than those prescribed or required for medical reasons: No Advance Directives: No Advance Directives Information Provided: Yes service: No Current occupational status: retired Physical Exam ED Exam Exam: General: Pleasant, no distress, interacting appropriately Head: Normacephalic, atraumatic ENT: oral mucosa moist, neck supple, no tracheal deviation Cardiovascular: regular rate, regular rhythm, no murmurs, rubbing, gallops Respiratory: CTAB, no wheeze, rales, rhonchi Gastrointestinal: Soft, non distended, non tender, non guarding Extremities: Trace pitting edema bilaterally Neurological: Awake and alert, no facial droop noted, no focal neurological deficits Skin: Warm and dry Psychiatric: Appropriate mood and thoughts Vital Signs: Vital Signs - 24 hr 09/04/25 19:21 09/04/25 21:04 Temperature 98.4 F Pulse Rate 73 65 Respiratory Rate 20 14 Blood Pressure 144/58 H 129/53 L Pulse Oximetry 98 95 Oxygen Delivery Method Room Air Room Air BMI result Body Mass Index 33.2 Medications Administered Discontinued Medications Generic Name Dose Route Start Last Admin Trade Name Freq PRN Reason Stop Dose Admin Lactated Ringer's 1,000 mls @ 999 mls/hr 09/04/25 20:00 09/04/25 22:15 Lr IV 09/04/25 21:00 Infused .Q1H1M YAMEL Infusion Medical Decision Making Medical Decision Making [facility] Narrative: This is a 79-year-old female history of diabetes, hypothyroidism, hyperlipidemia diabetes presented hospital today for evaluation of episode of unresponsiveness. We will obtain broad metabolic workup for the patient. Including CBC chemistry, check glucose, we will check a UA as well. CT head will be performed. EKG will be obtained as well. Patient's lab work is unremarkable no signs of cardiac cause for her syncopal episode. EKG is unremarkable. UA did not show any signs of UTI CT head is negative. No sign of significant electrolyte abnormality. Patient has received a bolus IV fluid. Patient was able to ambulate without any issues. We will plan to discharge patient home at this time. Discussed the plan with the patient's daughter. She agrees and understands this plan all questions were addressed. Differential Diagnosis Differential Diagnoses: The differential diagnosis associated with the presentation includes Syncope, seizure-like activity, cardiogenic syncope, vasovagal syncope Lab Data [facility] Lab Attestation statement: I reviewed the patient's lab results. 09/04/25 19:36 09/04/25 19:36 Labs: Lab Results 09/04/25 09/04/25 09/04/25 Range/Units 19:28 19:36 19:47 WBC 7.0 (4.8-10.8) X10*3/uL RBC 4.80 (4.20-5.50) X10*6/uL Hgb 13.1 (12.0-16.0) g/dl Hct 39.9 (37.0-47.0) % MCV 83.1 (80.0-98.0) fL MCH 27.3 (27.0-33.0) pg MCHC 32.8 (31.0-35.0) g/dl RDW 13.5 (11.0-16.0) % Plt Count 323 (160-400) X10*3/uL MPV 9.0 L (9.4-12.3) fL Immature Gran % (Auto) 0.3 (0.0-0.4) % Neut % (Auto) 58.6 (45-73) % Lymph % (Auto) 32.4 (20-40) % Gooding % (Auto) 6.9 (2-11) % Eos % (Auto) 1.4 (0-4) % Baso % (Auto) 0.4 (0-2) % Lymph # (Auto) 2.3 (1.2-4.9) X10*3/uL Gooding # (Auto) 0.5 (0.1-1.2) X10*3/uL Eos # (Auto) 0.1 (0.0-0.4) X10*3/uL Baso # (Auto) 0.0 (0.0-0.2) X10*3/uL Abs Immat Gran (auto) 0.02 (0.00-0.03) X10*3/uL Absolute Neuts (auto) 4.1 (2.0-8.3) x10*3/uL Absolute Nucleated RBC 0.000 (0.0-0.012) X10*3/uL Nucleated RBC % (auto) 0.0 (0.0-0.2) /100WBC Sodium 139 (135-145) mmol/L Potassium 4.3 D (3.3-5.1) mmol/L Chloride 105 (96-108) mmol/L Carbon Dioxide 23 (22-29) mmol/L Anion Gap 15 (12-20) BUN 12 (9-16) mg/dL Creatinine 0.71 (0.5-1.4) mg/dL Estim Creat Clear Calc 51.7 Estimated GFR > 60 POC Glucose 91 (60-115) mg/dL Random Glucose 85 (60-115) mg/dL Calcium 9.7 (8.4-10.2) mg/dL Total Bilirubin 0.3 (0.0-1.0) mg/dL AST 19 (5-31) U/L ALT 14 (0-31) U/L Alkaline Phosphatase 63 (39-117) U/L Troponin I High Sens < 2.7 (<3.5-17.0) ng/L Total Protein 7.3 (6.5-8.0) g/dL Albumin 4.3 (3.5-5.0) g/dL Urine Color Yellow Urine Appearance Clear Urine pH 5.5 (5.0-9.0) Ur Specific Keystone 1.010 (1.005-1.025) Urine Protein Negative (Neg-Trace) mg/dL Urine Glucose (UA) >=1000 H (Negative) mg/dL Urine Ketones Negative (Negative) mg/dL Urine Blood Negative (Negative) Urine Nitrite Negative (Negative) Ur Leukocyte Esterase Negative (Negative) Urine RBC 0-2 (0-2) /HPF Urine WBC 0-5 (0-5) /HPF Ur Squamous Epith Cells 0-2 (0-2) /HPF Urine Bacteria None Seen (None Seen) Hyaline Casts 0-2 (0-2) /LPF Discharge Plan Discharge Clinical Impression: Syncope Qualifiers: Syncope type: unspecified Qualified Code(s): R55 - Syncope and collapse Patient Disposition: Home, Self-Care Instructions: Syncope (ED) Prescriptions: No Action celecoxib 200 mg capsule 200 mg PO BID Qty: 60 3RF multivitamin Tablet 1 tab PO DAILY melatonin 5 mg Tablet 5 mg PO BEDTIME PRN (Reason: Sleep) albuterol sulfate 90 mcg/actuation HFA aerosol inhaler 2 puff inhalation Q4H PRN (Reason: Shortness Of Breath Or Wheezing) diltiazem HCl 120 mg capsule,extended release 24 hr 120 mg PO QAM albuterol sulfate 2.5 mg /3 mL (0.083 %) solution for nebulization 2.5 mg inhalation Q4H PRN (Reason: wheezing) (DME) blood pressure test kit-large Kit See Rx Instructions .ROUTE DAILY Qty: 1 Rx Instructions: As directed levothyroxine 125 mcg tablet 125 mcg PO QAM fluticasone propionate [Flovent HFA] 44 mcg/actuation HFA aerosol inhaler 1 puff inhalation BID Rx Instructions: administer with spacer metformin 1,000 mg tablet 1,000 mg PO BID rosuvastatin 10 mg tablet 10 mg PO DAILY Trulicity 0.75 mg/0.5 mL pen injector subcut Print Language: Rwandan
[2025-09-04 19:21] VITALS: BP 144/58; PULSE 73; RESP 20; TEMP 36.9; O2SAT 98; BMI 33.2
[2025-09-04 19:35] LABS: Glucose, Whole Blood 91 mg/dL (60-115)
[2025-09-04 19:42] LABS: MANUAL DIFF FLAG NO
[2025-09-04 19:44] LABS: Hematocrit 39.9 % (37.0-47.0); Hemoglobin 13.1 g/dl (12.0-16.0); Imm Gran Abs Auto 0.02 X10*3/uL (0.00-0.03); Imm Gran Pct Auto 0.3 % (0.0-0.4); Lymphocytes Absolute Auto 2.3 X10*3/uL (1.2-4.9); Mean Corpuscular HGB Conc 32.8 g/dl (31.0-35.0); Mean Corpuscular Hemoglobin 27.3 pg (27.0-33.0); Mean Corpuscular Volume 83.1 fL (80.0-98.0); NRBC Abs Auto 0.000 X10*3/uL (0.0-0.012); NRBC Pct Auto 0.0 /100WBC (0.0-0.2); Platelet Count 323 X10*3/uL (160-400); Red Blood Count 4.80 X10*6/uL (4.20-5.50); White Blood Count 7.0 X10*3/uL (4.8-10.8)
[2025-09-04 19:55] LABS: Appearance Urine Clear; Glucose Urine UA >=1000 mg/dL (Negative); PH 5.5 (5.0-9.0); Specific Gravity - Urine 1.010 (1.005-1.025); UMIC TRIGGER UACC YES
[2025-09-04 20:03] LABS: Alanine Aminotransferase 14 U/L (0-31); Albumin Level 4.3 g/dL (3.5-5.0); Alkaline Phosphatase 63 U/L (39-117); Anion Gap 15 (12-20); Aspartate Amino Transferase 19 U/L (5-31); Blood Urea Nitrogen 12 mg/dL (9-16); Calcium 9.7 mg/dL (8.4-10.2); Carbon Dioxide 23 mmol/L (22-29); Chloride 105 mmol/L (96-108); Creatinine Clr Calc Pharmacy 51.7; Estimated Glomerular Filt Rate > 60; Potassium 4.3 mmol/L (3.3-5.1); Sodium 139 mmol/L (135-145); Total Protein 7.3 g/dL (6.5-8.0)
[2025-09-04 20:12] LABS: Troponin-I High Sensitivity < 2.7 ng/L (<3.5-17.0)
[2025-09-04] MEDS: Lactated Ringers 1,000 ML 999 ML IV (21:03)
[2025-09-04 21:04] VITALS: BP 129/53; PULSE 65; RESP 14; O2SAT 95
--- NOTE | 2025-09-04 23:22 | MHC.EDTECH ---
Pt ambulated in the hallway with this tech and use of a walker. Her daughter was also present. Pt stated she felt good, did not feel weak or dizzy at all through the entire walk. Pt and daughter brought back to room. Sravanthi CARDOZA aware.
[2025-09-04 23:30] VITALS: BP 131/58; PULSE 63; RESP 16; TEMP 36.8; O2SAT 96
[2025-09-05 00:01] VITALS: BP 131/58; PULSE 63; RESP 16; TEMP 36.8; O2SAT 96
== END 2025-09-05 00:03 | disposition home or self-care (01) ==
PROVIDERS: Emergency Provider Student in an Organized Health Care Education/Training Program; PCP Registered Nurse
DX: R55 Syncope and collapse (principal); R41.82 Altered mental status, unspecified; R53.1 Weakness; R94.31 Abnormal electrocardiogram [ECG] [EKG]; I10 Essential (primary) hypertension
CPT/HCPCS: 36415; 70450; 80053; 81001; 82947; 84484; 85025; 93005; 96360; 99284; 99285; J7120

== ENCOUNTER → 2025-09-04 19:55 | Outpatient (BNV) | payer OTHER, SELFPAY | PROVIDERS: Emergency Provider Student in an Organized Health Care Education/Training Program; PCP Registered Nurse; Visit Provider Radiology Diagnostic Radiology | DX: R41.82 Altered mental status, unspecified (principal) | CPT/HCPCS: 70450 ==

== ENCOUNTER → 2025-09-04 20:21 | Outpatient (BNV) | payer OTHER, SELFPAY | PROVIDERS: Emergency Provider Student in an Organized Health Care Education/Training Program; PCP Registered Nurse; Visit Provider Internal Medicine Cardiovascular Disease | DX: I25.2 Old myocardial infarction (principal) | CPT/HCPCS: 93010 ==

== ENCOUNTER 2025-09-10 09:28 | Outpatient (REF) | payer OTHER, SELFPAY ==
--- OUTSIDE RECORDS SUMMARY | 2017-12-05 11:04 | XMS_ITS | Continuity of Care Document ---
Author Organization [facility] Address [address] [place] [address] Care Team Providers Care Admissions Rn Name Role Phone Obrien OD, Lavender Unavailable Unavailable Advance Directives Directive Yes / No Effective Date File Name No Information Encounters Encounter Description Practice Location Reason(s) For Visit Diagnoses Date Provider Providers Copied on Encounter [facility], [address], [place], [place], [id number], [place]. [address] routine eye exam (chief complaint) No Information Obrien Lavender. [address] [facility], [address], [place], [place], [id number], [place]. tel:[phone] Family History Family Member Type Diagnosis Age [...]
--- OUTSIDE RECORDS SUMMARY | 2025-09-10 10:49 | XMS_ITS | Encounter Summary ---
Author Organization [employer] Address [address] [facility] 7t [place] [address] Care Team Providers Care Steel Spar Operator Name Role Phone Edna Norris Primary Care Provider [phone] Agustín Mahmood MD Unavailable [phone] Encounter Details Date Type Department Care Team ([facility] st Contact Info) Description 04/25/2024 Orders Only [facility] [address] [place] [address] Edna Norris FNP [address] [place] [address] Hyperkalemia (Primary Dx) Social History Tobacco Use [...] Care Team (Late st Contact Info) Description 09/11/2025 10:30 AM EDT Office Visit [facility] [address] [place] [address] Edna Norris FNP [address] [place] [address] documented as of this encounter Goals Goal [...] EDT) Sodium 137 135 - 145 mmol/L [facility] Potassium 4.7 3.3 - 5.1 mmol/L [facility] Chloride 103 96 - 108 mmol/L [facility] Carbon Dioxide 24 22 - 29 mmol/L [facility] Anion Gap 15 12 - 20 [facility] Urea Nitrogen (BUN) 11 9 - 16 mg/dL [facility] Creatinine, Serum 0.76 0.5 - 1.4 mg/dL [facility] Estimated Glomerular Filt Rate >60 [facility] Comment:NOTE: For -Am erican individuals, multiply the result by 1.210.Chronic Kidney Disease: Estimated GFR < 60 mL/min/1.65o5Ovaymm Kidney Disease: Estimated GFR < 15 mL/min/1.73m2 Glucose 183(H) 60 - 115 mg/dL [facility] Calcium 9.7 8.4 - 10.2 mg/dL [facility] Blood Venous blood specimen / Unknown 05/10/2024 9:53 AM EDT 05/10/2024 11:17 AM EDT Edna MARCUS LAB BLOOD ORDERABLES Final Res ult [facility] [address] [place] [address] [phone] documented in this encounter Visit Diagnoses Diagnosis Hyperkalemia- Primary Hyperpotassemia documented in this encounter Additional Health Concerns Assessment Noted Time PHQ-9 Depression Total Score: 0 03/14/20 24 9:59 AM EDT documented as of this encounter Care Teams Steel Spar Operator Relationship Specialty Start Date End Date Edna Norris FNP [address] [place] [address] PCP - General Family Medicine 03/02/23 Agustín Mahmood MD [address] [place] [address] [place] [address] Neurology 09/19/24 documented as of this encounter
--- OUTSIDE RECORDS SUMMARY | 2025-09-10 10:50 | XMS_ITS | Encounter Summary ---
Author Organization [employer] Address [address] [facility] 7t [place] [address] Care Team Providers Care Internal Medicine Specialist Name Role Phone Edna Norris Primary Care Provider [phone] Agustín Mahmood MD Unavailable [phone] Reason for Visit * Reason Comments Med Refill Encounter Details Date Type Department Care Team ([facility] st Contact Info) Description 09/10/2025 Refill [facility] [address] [place] [address] Edna Norris FNP [address] [place], [place] [phone] Social History Tobacco Use Types Packs/Day Years [...] Description 09/11/2025 10:30 AM EDT Office Visit [facility] [address] [place] [address] Edna Norris FNP [address] [place] [address] documented as of this encounter Goals Goal [...] documented as of this encounter Care Teams Internal Medicine Specialist Relationship Specialty Start Date End Date Edna Norris FNP [address] [place] [address] PCP - General Family Medicine 03/02/23 Agustín Mahmood MD [address], [place] [address] Neurology 09/19/24 documented as of this encounter
--- OUTSIDE RECORDS SUMMARY | 2025-09-10 10:50 | XMS_ITS | Encounter Summary ---
Author Organization [employer] Address [address] [facility] 7t [place] [address] Care Team Providers Care Supervisor Beehive Kiln Name Role Phone Edna Norris Primary Care Provider [phone] Agustín Mahmood MD Unavailable [phone] Reason for Visit * Reason Onset Date Comments Med Refill 10/17/2023 Encounter Details Date Type Department Care Team ([facility] st Contact Info) Description 10/17/2023 Refill [facility] [address] [place] [address] Edna Norris FNP [address] [place], [place] [phone] Social History Tobacco Use Types Packs/Day Years [...] Description 09/11/2025 10:30 AM EDT Office Visit [facility] [address] [place] [address] Edna Norris FNP [address] [place] [address] documented as of this encounter Goals Goal [...] as of this encounter Care Teams Supervisor [employer]ive Kil[employer] Relationship Specialty Start Date End Date Edna Norris FNP [address] [place] [address] PCP - General Family Medicine 03/02/23 Agustín Mahmood MD [address] [place] [address] [place] [address] Neurology 09/19/24 documented as of this encounter
--- OUTSIDE RECORDS SUMMARY | 2025-09-10 10:50 | XMS_ITS | Encounter Summary ---
Author Organization [employer] Address [address] [facility] [address] 7t [place] [address] Care Team Providers Care Genetic Scientist Name Role Phone Edna Norris ANGELINE Primary Care Provider [phone] Agustín Mahmood MD Unavailable [phone] Encounter Details Date Type Department Care Team (Latest Contact Info) Description 09/09/2025 Travel Social History Tobacco Use Types Packs/Day [...] Description 09/11/2025 10:30 AM EDT Office Visit [facility] [address] [place] [address] Edna Norris FNP [address] [place] [address] documented as of this encounter Goals Goal [...] documented as of this encounter Care Teams Genetic Scientist Relationship Specialty Start Date End Date Edna Norris FNP [address] [place] [address] PCP - General Family Medicine 03/02/23 Agustín Mahmood MD [address] [place] [address] [place] [address] Neurology 09/19/24 documented as of this encounter
--- OUTSIDE RECORDS SUMMARY | 2025-09-10 10:50 | XMS_ITS | Encounter Summary ---
Author Organization [employer] Address [address] [facility] 7t [place] [address] Care Team Providers Care Renovation Plant Supervisor Name Role Phone Edna Norris Primary Care Provider [phone] Agustín Mahmood MD Unavailable [phone] Reason for Visit * Reason Onset Date Comments Med Refill 10/17/2023 Encounter Details Date Type Department Care Team (Late st Contact Info) Description 10/17/2023 Refill [facility] [address] [place] [address] Edna Norris FNP [address] [place], [place] [phone] Social History Tobacco Use Types Packs/Day Years [...] Description 09/11/2025 10:30 AM EDT Office Visit [facility] [address] [place] [address] Edna Norris FNP [address] [place] [address] documented as of this encounter Goals Goal [...] documented as of this encounter Care Teams Renovation Plant Supervisor Relationship Specialty Start Date End Date Edna Norris FNP [address] [place] [address] PCP - General Family Medicine 03/02/23 Agustín Mahmood MD [address] [place] [address] Dr Brock [place] [address] Neurology 09/19/24 documented as of this encounter
--- OUTSIDE RECORDS SUMMARY | 2025-09-10 10:50 | XMS_ITS | Encounter Summary ---
Author Organization [email or web address] Address [address] [facility] 7t [place] [address] Care Team Providers Care Lang Path Therapist Name Role Phone IselaOrtega josuecristiane MARCUS Primary Care Provider [phone] Agustín Mahmood MD Unavailable [phone] Encounter Details Date Type Department Care Team (Late st Contact Info) Description 09/04/2025 Orders Only [facility] External Provider, [facility] Social History Tobacco Use Types Packs/Day Years [...] Description 09/11/2025 10:30 AM EDT Office Visit [facility] [address] [facility] [place] [address] Edna Norris FNP [address] [place], [place] [phone] documented as of this encounter Goals Goal Patient Goal Type Associated Problems Recent Progress Patient-Stated? Author Blood Pressure < 140/90 Blood Pressure 130/68(2024 10:30 AM EDT) No Tricia Oliver PharmD Hemoglobin A1c < 8 Result Component 6.2( 10:44 AM EDT) No Mohamud Alcantara documented as of this encounter Procedures Procedure Name Priority Date/Time Associated Diagnosis Comments CT HEAD WO CONTRAST Routine 09/04/2025 1 0:04 PM EDT documented in this encounter Results * CT Head w/o Contrast (09/04/2025 10:04 PM EDT) Anatomical Region Laterality Modality Head, Neck Computed Tomogra phy 09/04/2025 10:0 4 PM EDT Narrative 09/04/2025 10:06 PM EDT [address] [address] [address] Scan Report Signed Patient: Vida Amado MR#: [id number] : 1945 Acct:[id number] Age/Sex: 79 / F ADM Date: 09/04/25 Loc: HO.ED Attending Dr: Ordering Physician: Birdie John DO Date of Service: 09/04/25 Procedure(s): CT head/brain wo IV con Accession Number(s): [id number] cc: Birdie John DO; Edna Norris FITTING ROOM ATTENDANT Report Number: [id number]: Total DLP = 534.00 mGy-cm Reason for Exam: ams CLINICAL HISTORY: ams CT head without contrast Comparison: None provided Findings: No acute intracranial fluid collection or hematoma. Moderate chronic white matter disease with volume loss. No acute process in sinuses or mastoids. No acute bony abnormality. Impression: No acute intracranial process This document has been electronically signed by: Darian Leal MD on 09/04/2025 22:04:50 Dictated By: Darian Leal MD Signed By: <Electronically signed by Darian Leal MD in OV> 09/04/252205 DD/ 03 TD/TT: 09/04/252203 Electromechanical Engineer: Procedure Note Donotuseinterpreter, Image - 09/04/[address] [place] [address] [address] Scan Report Signed Patient: Radha Amado#: [id number] : 5Acct:[id number] Age/Sex: 79 / FADM Date: 09/04/25 Loc: HO.ED Attending Dr: Ordering Physician: Birdie Jhon DO Date of Service: 09/04/25 Procedure(s): CT head/brain wo IV con Accession Number(s): [id number] cc: Birdie John DO; Edna Norris FITTING ROOM ATTENDANT Report Number: [id number]: Total DLP = 534.00 mGy-cm Reason for Exam: ams CLINICAL HISTORY: ams CT head without contrast Comparison: None provided Findings: No acute intracranial fluid collection or hematoma. Moderate chronic white matter disease with volume loss. No acute process in sinuses or mastoids. No acute bony abnormality. Impression: No acute intracranial process This document has been electronically signed by: Darian Leal MD on 09/04/2025 22:04:50 Dictated By: Darian Leal MD Signed By: <Electronically signed by Darian Leal MD in OV> 09/04/252205 DD/ 03 TD/TT: 09/04/252203 Electromechanical Engineer: [facility] External Provider IMG CT PROCEDURES Edited Result - Final documented in this encounter Visit Diagnoses Not on filedocumented in this encounter Additional Health Concerns Assessment Noted Time PHQ-9 Depression Total Score: 0 05/29/20 10:29 AM EDT documented as of this encounter Care Teams Lang Path Therapist Relationship Specialty Start Date End Date Edna Norris FNP [address] [place] [address] PCP - General Family Medicine 03/02/23 Agustín Mahmood MD [address] [place] [address] [place] [address] Neurology 09/19/24 documented as of this encounter
--- OUTSIDE RECORDS SUMMARY | 2025-09-10 10:50 | XMS_ITS | Encounter Summary ---
Author Organization [employer] Address [address] [facility] 7t [place] [address] Care Team Providers Care Media Relations Manager Name Role Phone Edna Norris Primary Care Provider [phone] Agustín Mahmood MD Unavailable [phone] Reason for Visit * Reason Comments Med Refill Encounter Details Date Type Department Care Team (Late st Contact Info) Description 12/12/2023 Refill [facility] [address] [place] [address] Edna Norris FNP [address] [place], [place] [phone] Social History Tobacco Use Types Packs/Day Years [...] Description 09/11/2025 10:30 AM EDT Office Visit [facility] [address] [place] [address] Edna Norris FNP [address] [place] [address] documented as of this encounter Goals Goal [...] documented as of this encounter Care Teams Media Relations Manager Relationship Specialty Start Date End Date Edna Norris FNP [address] [place] [address] PCP - General Family Medicine 03/02/23 Agustín Mahmood MD [address] [place] [address] [place] [address] Neurology 09/19/24 documented as of this encounter
--- OUTSIDE RECORDS SUMMARY | 2025-09-10 10:50 | XMS_ITS | Encounter Summary ---
Author Organization [facility] Address [address] [place] [address] 7 [place] [address] Care Team Providers Care Corporate Ethics Officer Name Role Phone JrOrtegacristiane MARCUS Primary Care Provider [phone] Agustín Mahmood MD Unavailable [phone] Reason for Referral * Consultation (Routine) - Pending Review Specialty Diagnoses / Procedures Referred By Snow almazan Referred To Contact Pharmacy Diagnoses Type 2 diabetes mellitus without complication, with long-term current use of insulin (HCC) Hypothyroidism, unspecified type Erika Motta MD [address] [place] [address] Phone: tel: fax: Referral ID Status Reason Start Date Expiration Date Visits Requested Visits Authorized [id number] Pending Review Continuity of Care 12/12/2024 12/12/2025 6 6 Scheduling Instructions Ongoing Medbox care Encounter Details Date Type Department Care Team (Late st Contact Info) Description 12/12/2024 Orders Only [facility] [address] [place], [place] [phone] Erika Motta MD [address] [place] [address] Type 2 diabetes mellitus without complication, with [...] Description 09/11/2025 10:30 AM EDT Office Visit [facility] [address] [place] [address] Edna Norris FNP [address] [place] [address] Scheduled Referrals Name Type Priority Associated Diagnoses Orde r Schedule Referral to Pharmacy MTM Outpatient Referral Routine Type 2 diabetes mellitus without complication, with long-term current use of insulin ([facility]/HCC) Hypothyroidism, unspecified type Ordered: 12/12/2024 documented as of this encounter Goals Goal Patient Goal Type Associated Problems Recent Progress Patient-Stated? Author Blood Pressure < 140/90 Blood Pressure 130/68(2024 10:30 AM EDT) No Tricia lOiver PharmD Hemoglobin A1c < 8 Result Component 6.2( 10:44 AM EDT) No Mohamud Alcantara documented as of this encounter Visit Diagnoses Diagnosis Type 2 diabetes mellitus without complication, with long-term current use of insulin ([facility])- Primary Hypothyroidism, unspecified type documented in this encounter Additional Health Concerns Assessment Noted Time PHQ-9 Depression Total Score: 0 03/14/20 9:59 AM EDT documented as of this encounter Care Teams Corporate Ethics Officer Relationship Specialty Start Date End Date Edna Norris FNP [address] [place] [address] PCP - General Family Medicine 03/02/23 Agustín Mahmood MD [address] [place] [address] [place] [address] Neurology 09/19/24 documented as of this encounter
--- OUTSIDE RECORDS SUMMARY | 2025-09-10 10:50 | XMS_ITS | Clinical Summary ---
Author Organization [employer] Address [address] [place] [address] 7t [place] [address] Care Team Providers Care Travel Money Advisor Name Role Phone IselaEdna josue ANGELINE Primary Care Provider [phone] Agustín Mahmood MD Unavailable [phone] Allergies Active Allergy Reactions Criticality Noted Date Comments Penicillins Rash High 03/03/2023 Other Reaction(s): Rash/Dermatitis Medications Blood Pressure kitIndications:P rimary hypertension Check Blood pressure daily and when symptomatic 1 kit 023 Active albuterol 108 (90 Base) MCG/ACT inhaler Inhale 2 puffs every 6 (six) hours if needed for wheezing. Active rosuvastatin (Crestor) 10 MG tablet TAKE 1 TABLET BY MOUTH AT BEDTIME (for cholesterol) 90 tablet 3 024 Active ciclopirox (Penlac) 8 % solution APPLY DAILY TO NAILS, CLEAN MEDICATION OFF NAILS EVERY 3 DAYS WITH alcohol isoproplico 024 Active glucose blood (OneTouch Verio) test stripIndications :Type 2 diabetes mellitus without complication, with long-term current use of insulin (HCC) 1 each by Other route 3 times daily. 90 each 025 2025 Active Lancets (OneTouch Delica) lancets 30GIndications:T ype 2 diabetes mellitus without complication, with long-term current use of insulin (HCC) 1 each by Other route 3 times daily. 90 each 025 2025 Active Multiple Vitamin (Multivitamin) tablet TAKE 1 TABLET BY MOUTH EVERYDAY AT NOON 90 tablet 3 025 Active fluticasone furoate (Arnuity Ellipta) 100 MCG/ACT inhaler Inhale 1 puff Once per day. Rinse mouth with water after use to reduce aftertaste and incidence of candidiasis. Do not swallow. 1 each 025 2025 Active empagliflozin-me tFORMIN ER (Synjardy XR) 25-1000 MG 24 hr tabletIndication s:Type 2 diabetes mellitus without complication, with long-term current use of insulin ([facility]) Take 1 tablet by mouth with breakfast. 90 tablet 3 025 2025 Active levothyroxine (Synthroid, Levoxyl) 75 MCG tabletIndication s:Hypothyroidism , unspecified type Take 1 tablet (75 mcg) by mouth in the morning. 90 tablet 1 025 Active lidocaine-priloc camron (Emla) 2.5-2.5 % cream APPLY A THIN LAYER TOPICALLY TO AFFECTED AREA(S) EVERY 8 HOURS NEEDED FOR PAIN 30 g 2 025 Active dilTIAZem ER (Tiazac) 120 MG 24 hr capsule TAKE 1 CAPSULE BY MOUTH EVERYDAY AT NOON 90 capsule 1 025 Active Alcohol Swabs 70 % pads 1 each if needed in the morning and at bedtime (checking blood sugar). 100 each 025 Active melatonin 5 MG tablet TAKE 1 TABLET BY MOUTH AT BEDTIME NEEDED FOR SLEEP 90 tablet 3 025 Active pantoprazole (ProtoNix) 40 MG EC tablet TAKE 1 TABLET BY MOUTH EVERY DAY BEFORE MEALS NEEDED FOR HEARTBURN. DO NOT BREAK, CRUSH, DISSOLVE OR CHEW. 90 tablet 1 025 Active Dulaglutide (Trulicity) 0.75 MG/0.5ML solution auto-injectorInd ications:Type 2 diabetes mellitus without complication, with long-term current use of insulin ([facility]) Inject 0.75 mg under the skin 1 (one) time per week. 2 mL 025 2025 Active Dulaglutide (Trulicity) 0.75 MG/0.5ML solution auto-injectorInd ications:Type 2 diabetes mellitus without complication, with long-term current use of insulin ([facility]) Inject 0.75 mg under the skin 1 (one) time per week. 2 mL 11 025 2024 Discontinued(R eorder (will not trigger notification to Pharmacy)) sodium zirconium cyclosilicate (Lokelma) 10 g packet Take 10 g by mouth Once per day for 3 days. 30 g 025 2024 Active Problems Problem Noted Date Diagnosed Date Osteoarthritis of hip 09/19/2024 Overview (09/19/2024): XR right hip Aug 2024: no acute fx or dislocation. 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 Sep 2024: reporting discomfort in left hip - [place] [facility] [place] for further eval 09/19/24 Cervical spondylosis [...] Continue with topical supportive measures Oct 2024: [facility] consult, injection declined Follow up for physical therapy referral if interested in future Assessment & Plan (11/28/2024 12:55 PM EST): XR completed Aug 2024 c/w degenerative changes Continue with topical supportive measures Oct 2024: [facility] [place] [place], injection declined Plan for physical therapy Assessment & Plan (09/19/2024 3:36 PM EST): Check XR Continue with topical supportive measures Referral to Ortho placed 09/19/24 Assessment & Plan (06/13/2024 7:34 PM EDT): Check XR Continue with topical supportive measures Consider physical therapy referral Healthcare maintenance 10/16/2023 Overview (02/27/2025): Optometry: 11/26/2024: RUDY @ [facility]. Dental: referral to [facility] Dental 03/14/24 Alzheimer disease 07/01/2023 Overview [...] 7:40 PM EDT): Interested in eval with [facility] Neuro, referral placed. Encouraged to continue engaging [...] episode. No known history of CVA or NC ED precautions Cardiology evaluation by [facility] [place] - Dr. Garcia January 2024: Stress [...] episode. No known history of CVA or NC Reports intermittent SOB - possibly related to [...] Encounters Date Type Department Care Team Description 09/10/2025 Refill [facility] [address] [place] [address] Edna Norris FNP 09/09/2025 Travel 09/04/2025 Orders Only [facility] External Provider, [facility] 08/28/2025 Results Follow-Up [facility] [address] [place] [address] Edna Norris FNP Albumin, Random Urine W/Creatinine, Lipid Panel, Standard, Comprehensive Metabolic Panel, Additional followed-up results: 2 08/26/2025 Travel 08/12/[address] [facility] [address] [place] [address] Edna Norris FNP Type 2 diabetes mellitus without complication, with long-term current use of insulin ([facility]) 06/20/2025 Telephone [facility] [address] [place] [address] Edna Norris FNP Letter of Medical Necessity: Wheelchair 06/16/[address] [facility] [address] [place] [address] Edna Norris FNP from Last 3 Months Immunizations Immunization Administration Dates Next Due Influenza High-dose Quadrivalent Preservative Fr ee 08/05/2023 Influenza, High Dose Seasonal, Preservative Free 08/27/2025,09/06/2024 Pneumococcal Conjugate PCV 20 06/29/2023 RSV Bivalent [...] Description 09/11/2025 10:30 AM EDT Office Visit [facility] [address] [place] [address] Edna Norris, ANGELINE [address] [place] [address] Health Maintenance Due Date Last Done Comments Eye Exam 1955 Diabetes: Foot Exam 03/14/2025 03/14/2024, 03/14/2024, 03/14/2024, Additional history exists COVID-19 Vaccine ( season) 2025 Diabetes: Hemoglobin A1C 11/29/2025 025, 02/27/2025, 11/28/2024, Additional history exists Alcohol/Substance Use Screening 05/29/2026 05/29/2025 Depression Screening 05/29/2026 05/29/2025, 05/29/20 25 SDOH Screening 05/29/2026 05/29/2025 Tobacco Screening 05/29/2026 05/29/2025 Diabetes: Urine Protein Screening 08/27/2026 08/27/2025, 04/24/2024, 03/03/2023 Lipid Panel 08/27/2026 08/27/2025, 04/14, 03/03/2023 DTaP/Tdap/Td Vaccines (2 - Td or Tdap) 10/14/2033 10/14/2023 Hepatitis C Screening Completed 03/03/2023 Pneumococcal Vaccine: 50+ Years Completed 06/29/2023 Zoster Vaccines Completed 09/05/2023, 07/04/2023 RSV Patients and Patients Aged 60 years or older Completed 10/15/2024 Influenza Vaccine Completed 08/27/2025, , 08/05/2023 HIB Vaccines Aged Out No longer eligi [...] CONTRAST Routine 09/04/2025 1 0:04 PM EDT VITAMIN B12 Routine 08/27/2025 8:42 AM EDT Type 2 diabetes mellitus without complication, with long-term current use of insulin (HCC) CBC WITH AUTO DIFFERENTIAL Routine 08/27/2025 8:42 AM EDT Healthcare maintenance COMPREHENSIVE METABOLIC PANEL Routine 08/27/2025 8:42 AM EDT Type 2 diabetes mellitus without complication, with long-term current use of insulin (HCC) LIPID PANEL, STANDARD Routine 08/27/2025 8:42 AM EDT Type 2 diabetes mellitus without complication, with long-term current use of insulin (HCC) ALBUMIN, RANDOM URINE W/CREATININE Routine 08/27/2025 8:42 AM EDT Type 2 diabetes mellitus without complication, with long-term current use of insulin (HCC) TSH W/REFLEX TO FT4 Routine 08/27/2025 8 :42 AM EDT Hypothyroidism, unspecified type POCT GLYCATED HEMOGLOBIN, TOTAL Routine 05/29/2025 10:44 AM EDT Type 2 diabetes mellitus without complication, with long-term current use of insulin (CMS/HCC) HEPATITIS C AB W/REFL TO HCV RNA, QN, PCR Routine 03/03/2023 9:58 AM EDT Routine health maintenance from Last 3 Months or Most Recently Relevant to Health Maintenance Results * CT Head w/o Contrast (09/04/2025 10:04 PM EDT) Anatomical Region Laterality Modality Head, Neck Computed Tomogra phy 09/04/2025 10:0 4 PM EDT Narrative 09/04/2025 10:06 PM EDT [place] [address] CT Scan Report Signed Patient: Vida Amado MR#: [id number] : 1945 Acct:[id number] Age/Sex: 79 / F ADM Date: 09/04/25 Loc: .ED Attending Dr: Ordering Physician: Birdie John DO Date of Service: 09/04/25 Procedure(s): CT head/brain wo IV con Accession Number(s): [id number] cc: Birdie John DO; Edna Norris CATERER'S AIDE Report Number: [id number]: Total DLP = 534.00 mGy-cm Reason for [...] in OV> 09/04/252205 DD/ 03 TD/TT: 09/04/252203 Mechanical Artist: Procedure Note Donotuseinterpreter, Image - 09/04/[address] [address] [address] Scan Report Signed Patient: Radha Amado#: [id number] : 5Acct:[id number] Age/Sex: 79 / FADM Date: 09/04/25 Loc: .ED Attending Dr: Ordering Physician: Birdie John DO Date of Service: 09/04/25 Procedure(s): CT head/brain wo IV con Accession Number(s): [id number] cc: Birdie John DO; Edna Norris CATERER'S AIDE Report Number: [id number]: Total DLP = 534.00 mGy-cm Reason for [...] in OV> 09/04/252205 DD/ 03 TD/TT: 09/04/252203 Mechanical Artist: [facility] External Provider IMG CT PROCEDURES Edited Result - Final * TSH W/Reflex to FT4 (08/27/2025 8:42 AM EDT) TSH reflex Free T4 1.37 0.32 - 4.0 uIU/mL [facility] Blood Venous blood specimen / Unknown 08/27/2025 8:42 AM EDT 08/27/2025 11:25 AM EDT Edna Norris [facility] BLOOD ORDERABLES Final Res ult Performing Organization Address [facility] de Phone Number [facility] [address] [place] [phone] * Albumin, Random Urine W/Creatinine (08/27/2025 8:42 AM EDT) Creatinine, Urine 128.42 mg/dL [facility] Microalbumin Urine 13.0 mg/L [facility] Microalbum Creatinine Ratio Ur 10.1 <30 ug/mg cr [facility] Comment:Albumin/Creatinine R atio Reference Ranges: Normal: < 30 ug/mg creatinine Microalbuminuria: 30 - 300 ug/mg creatinineClinical Albuminuria: > 300 ug/mg creatinine Urine 08/27/2025 8:42 AM EDT 08/27/2025 11:23 AM EDT Edna Norris [facility] URINE ORDERABLES Final Res ult Performing Organization Address [facility] de Phone Number [facility] [address] [place] [phone] * CBC auto differential (08/27/2025 8:42 AM EDT) White Blood Count 6.3 4.8 - 10.8 X10*3/uL [facility] Red Blood Count 5.06 4.20 - 5.50 X10*6/uL [facility] Hemoglobin 13.9 12.0 - 16.0 g/dl [facility] Hematocrit 43.6 37.0 - 47.0 % [facility] Mean Corpuscular Volume 86.2 80.0 - 98.0 fL [facility] Mean Corpuscular Hemoglobin 27.5 27.0 - 33.0 pg [facility] Mean Corpuscular HGB Conc 31.9 31.0 - 35.0 g/dl [facility] Red Cell Distribution Width 13.9 11.0 - 16.0 % [facility] Platelet Count 360 160 - 400 X10*3/uL [facility] Mean Platelet Volume 9.6 9.4 - 12.3 fL [facility] Neutrophils Percent Auto 58.5 45 - 73 % [facility] Imm Gran Pct Auto 0.3 0.0 - 0.4 % [facility] Lymphocytes Percent Auto 31.2 20 - 40 % [facility] Monocytes Percent Auto 6.5 2 - 11 % [facility] Eosinophils Percent Auto 2.7 0 - 4 % [facility] Basophils Percent Auto 0.8 0 - 2 % [facility] NRBC Pct Auto 0.0 0.0 - 0.2 /100WBC [facility] Neutrophils Absolute Auto 3.7 2.0 - 8.3 x10*3/uL [facility] Imm Gran Abs Auto 0.02 0.00 - 0.03 X10*3/uL [facility] Lymphocytes Absolute Auto 2.0 1.2 - 4.9 X10*3/uL [facility] Monocytes Absolute Auto 0.4 0.1 - 1.2 X10*3/uL [facility] Eosinophils Absolute Auto 0.2 0.0 - 0.4 X10*3/uL [facility] Basophils Absolute Auto 0.1 0.0 - 0.2 X10*3/uL [facility] NRBC Abs Auto 0.000 0.0 - 0.012 X10*3/uL [facility] Blood Venous blood specimen / Unknown 08/27/2025 8:42 AM EDT 08/27/2025 11:25 AM EDT us Edna Norris [facility]S A[facility] LAB BLOOD ORDERABLES Final Res ult [facility] [address] [place] [address] [phone] * Vitamin B12 (08/27/2025 8:42 AM EDT) Vitamin B12 208 200 - 900 pg/mL [facility] Comment:NORMAL 200-900 PG/ML INDETERMINATE 160-199 PG/ML DEFICIENT < 160 PG/ML Blood Venous blood specimen / Unknown 08/27/2025 8:42 AM EDT 08/27/2025 11:25 AM EDT Edna Norris [facility] BLOOD ORDERABLES Final Res ult Performing Organization Address City/[facility] [[email or web address]] Co de Phone Number [facility] [address] [place] [address] [phone] * Lipid Panel, Standard (08/27/2025 8:42 AM EDT) Triglycerides 129 <150 mg/dL [facility] Comment:Desirable Triglyceri de: less than 150 mg/dLBorderline High Triglyceride 150-199 mg/dLHigh Triglyceride: 200-499 mg/dLVery High Triglyceride: greater than or equal to 5OO mg/dL Cholesterol 145 <200 mg/dL [facility] Comment:Desirable Cholestero l: less than 200 mg/dLBorderline High Cholesterol: 200-239 mg/dLHigh Cholesterol: greater than 239 mg/dL LDL Cholesterol Calculated 62 <100 mg/dL [facility] Comment:Desirable LDL: less than 100 mg/dLNear Optimal/Above Optimal LDL: 110- 129 mg/dLBorderline High LDL: 130-159 mg/dLHigh LDL: 160-189 mg/dLVery High LDL: greater than or equal to 190 mg/dL HDL Cholesterol 58 >40 mg/dL [facility] Comment:Desirable HDL: great er than 40 mg/dL Note: This HDL assay may give artificially low results in patients with liver disease. Blood Venous blood specimen / Unknown 08/27/2025 8:42 AM EDT 08/27/2025 11:25 AM EDT Edna Norris CATERER'S AIDE LAB BLOOD ORDERABLES Final Res ult [facility] [address] [place] [phone] [phone] * (ABNORMAL) Comprehensive Metabolic Panel (08/27/2025 8:42 AM EDT) Sodium 141 135 - 145 mmol/L [facility] Potassium 5.5(H) 3.3 - 5.1 mmol/L [facility] Chloride 108 96 - 108 mmol/L [facility] Carbon Dioxide 25 22 - 29 mmol/L [facility] Anion Gap 14 12 - 20 [facility] Urea Nitrogen (BUN) 13 9 - 16 mg/dL [facility] Creatinine, Serum 0.80 0.5 - 1.4 mg/dL [facility] Estimated Glomerular Filt Rate >60 [facility] Comment:Chronic Kidney Disea se: Estimated GFR < 60 mL/min/1.39x1Sdnuwm Kidney Disease: Estimated GFR < 15 mL/min/1.73m2 Glucose 114 60 - 115 mg/dL [facility] Calcium 9.8 8.4 - 10.2 mg/dL [facility] Bilirubin, Total 0.3 0.0 - 1.0 mg/dL [facility] Aspartate Amino Transferase 21 5 - 31 U/L [facility] Alanine Aminotransferase 6 0 - 31 U/L [facility] Total Protein 7.5 6.5 - 8.0 g/dL [facility] Albumin Level 4.4 3.5 - 5.0 g/dL [facility] Alkaline Phosphatase 67 39 - 117 U/L [facility] Blood Venous blood specimen / Unknown 08/27/2025 8:42 AM EDT 08/27/2025 11:25 AM EDT Edna Norris CATERER'S AIDE LAB BLOOD ORDERABLES Final Res ult Performing Organization Address [facility]/ZIP Co de Phone Number [facility] [address] [place] [phone] * (ABNORMAL) POCT HGB A1C (05/29/2025 10:44 AM EDT) Hemoglobin A1C 6.2(A) 4.0 - 5.7 % QC Media Lot # [id number] Lot# Expiration Date Blood 05/29/2025 10:4 4 AM EDT Result [facility] POINT OF CARE TEST ENTER/EDIT ORDERABLES Final Result * Hepatitis C Antibody with Reflex to HCV, RNA, Quantitative, Real-Time PCR (03/03/2023 9:58 AM EDT) Hepatitis C Antibody NON-REACT SYLVIE NON-REACT SYLVIE [employer] [employer] Index 0.08 <1.00 [employer] [employer] Comment: HCV antibody was non-reactive. There is no laboratory evidence of HCV infection. In most cases, no further action is required. However, if recent HCV exposure is suspected, a test for HCV RNA (test code 67574) is suggested. For additional information please refer to http://education.IAMINTOIT/faq/ZRP06y6 (This link is being provided for informational/ educational purposes only.) Blood Venous blood specimen / Unknown 03/03/2023 9:58 AM EDT 03/03/2023 9:59 AM EDT Narrative [facility] - 03/07/2023 5:30 PM EDT FASTING:NO FASTING: NO [facility] BLOOD ORDERABLES Final Res ult [facility] [address], [place] [address] [employer] [address] [place] [phone] from Last 3 Months or Most Recently Relevant to [place] [id number] [employer] (HMO D-SNP) KATIE RUSH [id number] Care Teams Travel Money Advisor Relationship Specialty Start Date End Date Edna Norris FNP [address] [place] [address] [place] [address] PCP - General Family Medicine 03/02/23 Agustín Mahmood MD [address] [place] [address] [place] [address] Neurology 09/19/24
--- OUTSIDE RECORDS SUMMARY | 2025-09-10 10:50 | XMS_ITS | Encounter Summary ---
Author Organization [email or web address] Address [address] [facility] [address] [place] [address] Care Team Providers Care Tire Builder Heavy Service Name Role Phone Edna Norris Primary Care Provider [phone] Agustín Mahmood MD Unavailable [phone] Reason for Visit * Reason Onset Date Comments Med Refill 10/14/2023 Encounter Details Date Type Department Care Team ([facility] st Contact Info) Description 10/14/2023 Refill [facility] [address] [place] [address] Edna Norris FNP [address] [place], [place] [phone] Social History Tobacco Use Types Packs/Day Years [...] Description 09/11/2025 10:30 AM EDT Office Visit [facility] [address] [place] [address] Edna Norris FNP [address] [place] [address] documented as of this encounter Goals Goal [...] documented as of this encounter Care Teams Tire Builder Heavy Service Relationship Specialty Start Date End Date Edna Norris FNP [address] [place] [address] PCP - General Family Medicine 03/02/23 Agustín Mahmood MD [address] [place] [address] [place] [address] Neurology 09/19/24 documented as of this encounter
[2025-09-10 12:01] LABS: Anion Gap 12 (12-20); Blood Urea Nitrogen 12 mg/dL (9-16); Calcium 9.6 mg/dL (8.4-10.2); Carbon Dioxide 25 mmol/L (22-29); Chloride 107 mmol/L (96-108); Estimated Glomerular Filt Rate > 60; Potassium 4.7 mmol/L (3.3-5.1); Sodium 139 mmol/L (135-145)
== END 2025-09-10 09:29 | disposition home or self-care (01) ==
LOC: HO.HHCL 09:28
PROVIDERS: PCP Registered Nurse; Visit Provider Registered Nurse
DX: Z00.00 Encounter for general adult medical examination without abnormal findings (principal); E87.5 Hyperkalemia
CPT/HCPCS: 36415; 80048; 84443

== ENCOUNTER 2025-09-12 18:09 | Emergency (ER) | payer OTHER, SELFPAY ==
--- OUTSIDE RECORDS SUMMARY | 2017-12-05 11:04 | XMS_ITS | Continuity of Care Document ---
Author Organization [facility] Address [address] [place] [address] Care Team Providers Care Solid Waste Engineer Name Role Phone Obrien OD, Lavender Unavailable Unavailable Advance Directives Directive Yes / No Effective Date File Name No Information Encounters Encounter Description Practice Location Reason(s) For Visit Diagnoses Date Provider Providers Copied on Encounter [facility], [address], [place], [place], [id number], [place]. [address] routine eye exam (chief complaint) No Information Obrien Lavender. [address] [facility], [address], [place], [place], [id number], [place]. tel:[phone] Family History Family Member Type Diagnosis Age [...]
--- OUTSIDE RECORDS SUMMARY | 2025-09-11 10:30 | XMS_ITS | Encounter Summary ---
Author Organization [employer] Address [address] [facility] 7t [place] [address] Care Team Providers Care Printed Circuit Boards Laminator Name Role Phone Edna Norris Primary Care Provider [phone] Agustín Mahmood MD Unavailable Encounter Details Date Type Department Care Team (Late st Contact Info) Description 09/11/2025 10:30 AM EDT Office Visit [facility] [address] [place] [address] Edna Norris FNP [address] [place], [place] [id number] Type 2 diabetes mellitus without complication, with long-term current use of insulin (HCC) (Primary Dx); Hyperkalemia; Alzheimer disease (HCC); Skin lesion Social History Tobacco Use Types Packs/Day Years [...] PM EST documented as of this encounter Last Filed Vital Signs Vital Sign Reading Time Taken Comments Blood Pressure 120/70 09/11/2025 10:53 AM EDT Pulse 70 09/11/2025 10:53 AM EDT Temperature 36.7 C (98.1 F) 09/11/2025 10:53 AM EDT Respiratory Rate 11 09/11/2025 10:53 AM EDT Oxygen Saturation 97% 09/11/2025 10:53 AM EDT Inhaled Oxygen Concentration - - Weight 60.3 kg (133 lb) 09/11/2025 10:53 AM EDT Height 144.8 cm (4' 9 ) 09/11/2025 10:53 AM EDT Body Mass Index 28.78 09/11/2025 10:53 AM EDT documented in this encounter Progress Notes * ANGELINE Robertson - 09/11/2025 10:30 AM EDT Subjective: Vida Amado is a 79 y.o. female w/ PMH hypertension, cardiac arrhythmia, T2DM, hypothyroid, asthma,and Alzheimer disease who presents to the office with daughter for a follow up visit - chronic conditions. Interim History: Last PCP visit: 05/29/25 07/05/25: TTE with EF 55-60% with impaired relaxation filling pattern 09/04/25: [facility] ED evaluation for evaluation of unresponsiveness (?syncopal episode) at home. Daughter reports she was in a recliner and had episode of unresponsiveness with teeth clenching. Denies anyseizure like activity. Labs, EKG, UA, and CT unremarkable. Discharged home. 08/27/25: labs demonstrated hyperkalemia with potassium 5.5. HPI: T2DM: continues on Trulicity and Synjardy (metformin/Jardiance). BG value has been well controlled at home with fasting readings typically in the low 100s. Denies polyuria, polydipsia, or polyphagia. Dementia: continues with adequate appetite and sleep. Has experienced some labile mood, but able octavia redirected by and daughter. However, family has noted progressive decline. Hyperkalemia: resolved s/p treatment with lokelma. Pt also reports she had been eating significant amount of mashed potatoes following removal of her upper teeth, which could likely be contributing to the elevated potassium level. She will plan to now eat in moderation. Past Surgical History: Procedure Laterality Date CARPAL TUNNEL RELEASE SHOULDER SURGERY Left Social History Social History Narrative Living situation: lives with daughter, and in-law. Moved approx Sep 2022 from [place] to live with daughter in [place] Substance use: -alcohol: none reported -tobacco: former cigarette smoker -opioids: none reported Mental health: denies SI/HI/thoughts of self harm Allergies Allergen Reactions Penicillins Rash Other Reaction(s): Rash/Dermatitis Review of Systems Constitutional: Negative for chills and fever. Respiratory: Negative for cough and wheezing. Cardiovascular: Negative for chest pain and palpitations. Gastrointestinal: Negative for diarrhea, nausea and vomiting. Endocrine: Negative for polydipsia, polyphagia and polyuria. Visit Vitals BP 120/70 (BP Location: Left arm, Patient Position: Sitting, BP Cuff Size: Adult) Pulse 70 Temp 98.1 ??F (36.7 ??C) (Oral) Resp 11 Ht 4' 9 (1.448 m) Wt 133 lb (60.3 kg) LMP (LMP Unknown) SpO2 97% BMI 28.78 kg/m?? OB Status Postmenopausal Smoking Status Former BSA 1.56 m?? Physical Exam Constitutional: Appearance: Normal appearance. HENT: Head: Atraumatic. Right Ear: External ear normal. Left Ear: External ear normal. Cardiovascular: Rate and Rhythm: Regular rhythm. Pulmonary: Effort: Pulmonary effort is normal. Breath sounds: No stridor. No wheezing or rhonchi. Musculoskeletal: Left knee: No swelling, effusion, erythema or ecchymosis. No tenderness. Skin: Comments: Right medial malleolus with overlying excoriation and scabbing. No active pus or drainage. Papular border. Neurological: Mental Status: She is alert. Mental status is at baseline. Psychiatric: Mood and Affect: Mood normal. Behavior: Behavior normal. Problem List Items Addressed This Visit Endocrine and Metabolic Type 2 diabetes mellitus without complication, with long-term current use of insulin ([facility]) - Primary Overview Lab Results Component Value Date HGBA1C 5.4 09/11/2025 HGBA1C 6.2 (A) 05/29/2025 HGBA1C 6.9 (A) 02/27/2025 HGBA1C 8.4 (H) 03/03/2023 -Microalbumin: WNL (18) in April 2024 -Eye exam: 11/26/2024: [facility]. No evidence of diabetic retinopathy or macular edema. -Foot exam: monofilament WNL 03/14/24, established with podiatry for toe nail clipping -Dental: established with dental home -PNA: PCV20 06/29/23 UTD -Tdap/Td: 10/14/23 UTD -ACEi/ARB: no -Statin: yes -ASA: no Lab Results Component Value Date CHOL 145 08/27/2025 CHOL 177 04/24/2024 TRIG 129 08/27/2025 TRIG 180 (H) 04/24/2024 TRIG 229 (H) 03/03/2023 HDL 58 08/27/2025 HDL 62 04/24/2024 LDLCHOLCAL 62 08/27/2025 LDLCHOLCAL 79 04/24/2024 Lifestyle: Encouraged regular movement and aerobic exercise for improved glycemic control Encouraged daily foot checks Encouraged lean protein snacks and to avoid foods high in sugar and simple carbohydrates Medications: Jardiance 25mg Trulicity 0.75mg subcutaneous weekly Treatment Goals: A1c goal: <8% FBG goal: <140 2 hour post prandial goal: <180 Current Assessment & Plan - Well controlled, plan to remove metformin from the combo pill (de- prescribing). She will cont with the Jardiance and Trulicity. Med box team notified Relevant Medications empagliflozin (Jardiance) 25 MG Other Relevant Orders POCT Glucose (Completed) POCT Hgb A1c (Completed) Neuro Alzheimer disease (HCC) Overview 08/16/23: MRI brain by Dr. Mahmood for Alzheimer's disease and syncope w/ following impression - 1. Mild generalized cerebral volume loss and mild chronic white matter microangiopathy. 2. Otherwise unremarkable noncontrast MRI of the brain. Current Assessment & Plan Cont following with specialist Encouraged to continue engaging physically and mentally throughout the day Information regarding Alzheimer's Association previously provided Other Visit Diagnoses Hyperkalemia - Resolved at this time, avoid high volume of potassium-rich foods Skin lesion - Topical clotrimazole and mupirocin. Avoid itching. F/up with any worsening or persistence of symptoms. Relevant Medications clotrimazole (Lotrimin) 1 % cream mupirocin (Bactroban) 2 % ointment Follow up: 3 months, sooner as needed documented in this encounter Miscellaneous Notes * Assessment & Plan Note - ANGELINE Robertson - 09/11/2025 4:30 PM EDTAssociated Problem(s): Alzheimer disease (HCC) Cont following with specialist Encouraged to continue engaging physically and mentally throughout the day Information regarding Alzheimer's Association previously provided * Assessment & Plan Note - ANGELINE Robertson - 09/11/2025 4:28 PM EDTAssociated Problem(s): Type 2 diabetes mellitus without complication, with long-term current use ofinsulin (HCC) - Well controlled, plan to remove metformin from the combo pill (de- prescribing). She will cont with the Kaveh and Krissy. Med box team notified documented in this encounter Plan of Treatment Not on file documented as of this encounter Goals Goal Patient Goal Type Associated Problems Recent Progress Patient-Stated? Author Blood Pressure < 140/90 Blood Pressure 120/70(2024 10:53 AM EDT) No Tricia Oliver PharmD Hemoglobin A1c < 8 Result Component 5.4( 10:55 AM EDT) No Mohamud Alcantara documented as of this encounter Procedures Procedure Name Priority Date/Time Associated Diagnosis Comments POCT GLYCATED HEMOGLOBIN, TOTAL Routine 09/11/2025 10:55 AM EDT Type 2 diabetes mellitus without complication, with long-term current use of insulin ([facility]) POCT GLUCOSE Routine 09/11/2025 10:54 AM EDT Type 2 diabetes mellitus without complication, with long-term current use of insulin ([facility]) documented in this encounter Results * POCT Hgb A1c (09/11/2025 10:55 AM EDT) Hemoglobin A1C 5.4 4.0 - 5.7 % QC Media Lot # [id number] Lot# Expiration Date ,027 Blood 09/11/2025 10:5 5 AM EDT us Edna MARCUS POINT OF CARE TEST ENTER/EDIT ORDERABLES Final Result * POCT Glucose (09/11/2025 10:54 AM EDT) Glucose Blood, POC 128 60 - 200 mg/dL QC Media Lot # [id number] Lot# Expiration Date [id number] Blood Capillary blood specimen / Unknown 09/11/2025 10:54 AM EDT us Edna RAYMUNDOP POINT OF CARE TEST ENTER/EDIT ORDERABLES Final Result documented in this encounter Visit Diagnoses Diagnosis Type 2 diabetes mellitus without complication, with long-term current use of insulin ([facility])- Primary Hyperkalemia Hyperpotassemia Alzheimer disease (HCC) Alzheimer's disease Skin lesion Unspecified disorder of skin and subcutaneous tissue documented in this encounter Additional Health Concerns Assessment Noted Time PHQ-9 Depression Total Score: 0 05/29/20 25 10:29 AM EDT documented as of this encounter Care Teams Printed Circuit Boards Laminator Relationship Specialty Start Date End Date Edna Norris FNP [address] [place] [address] [place] [address] PCP - General Family Medicine 03/02/23 Agustín Mahmood MD [address] [place] [address] [place] [address] Neurology 09/19/24 documented as of this encounter
--- NOTE | 2025-09-12 | ECG_ITS ---
Test Reason : SYNCOPE Blood Pressure : */* mmHG Vent. Rate : 69 BPM Atrial Rate : 69 BPM P-R Int : 160 ms QRS Dur : 66 ms QT Int : 398 ms P-R-T Axes : 76 -5 50 degrees QTcB Int : 426 ms Sinus rhythm with occasional Premature ventricular complexes Cannot rule out Anterior infarct (cited on or before 12-Jun-2023) , but can be related to body habitus and lead placement Abnormal ECG When compared with ECG of 04-Sep-2025 20:21, Premature ventricular complexes are now Present Referred By: Generic ED Physician Electronically Signed By: TONY DIALLO
[2025-09-12 18:37] VITALS: BP 144/62; PULSE 64; RESP 16; TEMP 36.5; O2SAT 96; BMI 29.6
--- NOTE | 2025-09-12 18:48 | ED.GENADULT ---
HPI - General Adult General Chief complaint: Syncope Stated complaint: syncopy Time Seen by Provider: 09/12/25 18:25 Source: patient Mode of arrival: ambulatory Limitations: no limitations History of Present Illness ED Provider: Dr. John [facility] narrative: This is a 79-year-old female presented hospital today for syncopal episode. Patient has history of advanced Alzheimer's hypertension and thyroid disease. Patient was recently seen here for syncope last week. Daughter noticed that patient had a syncopal episode in a recliner. She appears to be unresponsive no signs of agonal breathing then no signs of shaking extremities. The patient returned after 20-25 minutes. Patient is not complaining of any chest pain. Patient is not complaining of shortness of breath. No recent illness no fever. No coughing. Patient does not have any medical complaints at this time. Daughter noticed that this syncopal episode happens every single time patient has skipped a meal. Blood sugar on scene was 83. Related Data Home Medications ?Medication ?Instructions ?Recorded ?Confirmed albuterol sulfate 2.5 mg/3 mL 2.5 mg inhalation Q4H PRN wheezing 06/08/23 10/31/24 (0.083 %) solution for nebulization albuterol sulfate 90 mcg/actuation 2 puff inhalation Q4H PRN 06/08/23 10/31/24 aerosol inhaler Shortness Of Breath Or Wheezing blood pressure test kit-large #1 ea 06/08/23 10/18/23 diltiazem HCl 120 mg capsule,24 120 mg PO QAM 06/08/23 10/31/24 hr,extended release levothyroxine 125 mcg tablet 125 mcg PO QAM 06/08/23 10/31/24 melatonin 5 mg tablet 5 mg PO BEDTIME PRN Sleep 06/13/23 10/31/24 multivitamin 1 tab PO DAILY 06/13/23 10/31/24 fluticasone propionate 44 1 puff inhalation BID 10/18/23 10/31/24 mcg/actuation HFA aerosol inhaler (Flovent HFA) metformin 1,000 mg tablet 1,000 mg PO BID 10/18/23 10/31/24 rosuvastatin 10 mg tablet 10 mg PO DAILY 10/18/23 10/31/24 dulaglutide 0.75 mg/0.5 mL mg subcut 10/31/24 10/31/24 subcutaneous pen injector (Trulicity) Previous Rx's ?Medication ?Instructions ?Recorded celecoxib 200 mg capsule 200 mg PO BID #60 caps 04/03/25 ciprofloxacin HCl 500 mg tablet 500 mg PO BID 7 days #14 tabs 09/12/25 Allergies Allergy/AdvReac Type Severity Reaction Status Date / Time Penicillins Allergy Severe Rash Verified 09/12/25 18:40 Review of Systems Review of Systems: Pertinent review of systems as mentioned in HPI. All other system otherwise negative. REPLACED BY [facility] Past Medical History REPLACED BY [facility] Narrative: Medical history as mentioned in HPI Medical History (Updated 09/12/25 @ 23:42 by Birdie John DO) Dementia Umbilical hernia Thyroid disease Arthritis Hypertension Surgical History History of female sterilization History of shoulder surgery History of carpal tunnel surgery Family History Family History (Updated 10/18/23 @ 13:56 by Casi Driscoll) Mother Heart problem Other Colon cancer Social History Social History (Updated 10/31/24 @ 10:58 by DIXIE Segal) Alcohol intake: never Patient Tobacco Use Status: Never used Tobacco Smoked in Last 30 Days: No Use of substances other than those prescribed or required for medical reasons: No Advance Directives: No Advance Directives Information Provided: Yes service: No Current occupational status: retired Physical Exam ED Exam Exam: General: Pleasant, no distress, interacting appropriately Head: Normacephalic, atraumatic ENT: oral mucosa moist, neck supple, no tracheal deviation Cardiovascular: regular rate, regular rhythm, no murmurs, rubbing, gallops Respiratory: CTAB, no wheeze, rales, rhonchi Gastrointestinal: Soft, non distended, non tender, non guarding Extremities: No limb pain or swelling, no calf tenderness Neurological: Awake and alert, no facial droop noted, sensation intact bilaterally, no sign of weakness in upper or lower extremity Skin: Warm and dry Psychiatric: Appropriate mood and thoughts Vital Signs: Vital Signs - 24 hr 09/12/25 18:37 09/12/25 21:00 09/12/25 22:43 Temperature 97.7 F 97.7 F Pulse Rate 64 67 Respiratory Rate 16 16 Blood Pressure 144/62 H 144/58 H Pulse Oximetry 96 98 96 Oxygen Delivery Method Room Air Room Air Room Air BMI result Body Mass Index 29.6 Medications Administered Discontinued Medications Generic Name Dose Route Start Last Admin Trade Name Swapna PRN Reason Stop Dose Admin Sodium Chloride 1,000 mls @ 999 mls/hr 09/12/25 19:15 09/12/25 20:57 Ns IV 09/12/25 20:15 Infused .Q1H1M YAMEL Infusion Medical Decision Making Medical Decision Making [facility] Narrative: 79-year-old female presented hospital today for a syncopal episode. We will obtain EKG, we will obtain basic lab work as well. We will assess her urine. We will perform a syncopal workup for the patient at this time. Assess for any signs of her syncopal. A bolus IV fluid be provided the patient. Based on the patient's presentation and history I do not think this is a seizure. She had recent CT head scan performed last week. Which was negative. I do not see the need to repeat a CT head. Review patient's EKG no sign of acute cardiac arrhythmia. There is occasional PVCs. Patient's CBC is unremarkable. Patient's chemistries unremarkable. Patient's UA did show small leuk esterase. Perhaps it is a UTI. We will plan to give patient a dose of Levaquin here. We will plan to discharge patient with ciprofloxacin. Patient does have allergies to penicillins in the past. Discussed the results with the patient's daughter who is a nurse. I did offer admission for syncope observation however they would prefer to take her home at this time. Discussed to follow up with primary care doctor for further syncopal workup. Tolerate agrees and understands this plan all questions addressed. Return precautions provided. Differential Diagnosis Differential Diagnoses: The differential diagnosis associated with the presentation includes Vasovagal syncope, cardiogenic syncope, seizure-like activity Admission/Observation Consideration of admission/observation: Escalation of care including admission/observation considered Lab Data [facility] Lab Attestation statement: I reviewed the patient's lab results. 09/12/25 19:13 09/12/25 19:13 Labs: Lab Results 09/12/25 09/12/25 Range/Units 18:56 19:13 WBC 7.4 (4.8-10.8) X10*3/uL RBC 4.66 (4.20-5.50) X10*6/uL Hgb 12.9 (12.0-16.0) g/dl Hct 39.2 (37.0-47.0) % MCV 84.1 (80.0-98.0) fL MCH 27.7 (27.0-33.0) pg MCHC 32.9 (31.0-35.0) g/dl RDW 13.6 (11.0-16.0) % Plt Count 306 (160-400) X10*3/uL MPV 9.2 L (9.4-12.3) fL Immature Gran % (Auto) 0.3 (0.0-0.4) % Neut % (Auto) 57.4 (45-73) % Lymph % (Auto) 34.0 (20-40) % Gibson % (Auto) 6.7 (2-11) % Eos % (Auto) 1.1 (0-4) % Baso % (Auto) 0.5 (0-2) % Lymph # (Auto) 2.5 (1.2-4.9) X10*3/uL Gibson # (Auto) 0.5 (0.1-1.2) X10*3/uL Eos # (Auto) 0.1 (0.0-0.4) X10*3/uL Baso # (Auto) 0.0 (0.0-0.2) X10*3/uL Abs Immat Gran (auto) 0.02 (0.00-0.03) X10*3/uL Absolute Neuts (auto) 4.2 (2.0-8.3) x10*3/uL Absolute Nucleated RBC 0.000 (0.0-0.012) X10*3/uL Nucleated RBC % (auto) 0.0 (0.0-0.2) /100WBC PT 12.3 (10.9-12.4) SEC INR 1.1 (0.9-1.1) Sodium 139 (135-145) mmol/L Potassium 4.7 (3.3-5.1) mmol/L Chloride 109 H (96-108) mmol/L Carbon Dioxide 22 (22-29) mmol/L Anion Gap 13 (12-20) BUN 13 (9-16) mg/dL Creatinine 0.66 (0.5-1.4) mg/dL Estim Creat Clear Calc 52.3 Estimated GFR > 60 Random Glucose 84 (60-115) mg/dL Calcium 9.5 (8.4-10.2) mg/dL Magnesium 1.7 (1.6-2.6) mg/dL Total Bilirubin 0.2 (0.0-1.0) mg/dL AST 16 (5-31) U/L ALT 9 (0-31) U/L Alkaline Phosphatase 61 (39-117) U/L Troponin I High Sens 3.0 (<3.5-17.0) ng/L Total Protein 7.0 (6.5-8.0) g/dL Albumin 4.1 (3.5-5.0) g/dL Urine Color Yellow Urine Appearance Clear Urine pH 5.5 (5.0-9.0) Ur Specific [place] 1.010 (1.005-1.025) Urine Protein Negative (Neg-Trace) mg/dL Urine Glucose (UA) >=1000 H (Negative) mg/dL Urine Ketones Negative (Negative) mg/dL Urine Blood Negative (Negative) Urine Nitrite Negative (Negative) Ur Leukocyte Esterase Small (1+) H (Negative) Urine RBC 0-2 (0-2) /HPF Urine WBC 6-10 H (0-5) /HPF Ur Squamous Epith Cells 0-2 (0-2) /HPF Urine Bacteria None Seen (None Seen) Hyaline Casts 3-5 (0-2) /LPF Independent Interpretation I performed an independent interpretation of an: EKG Discharge Plan Discharge Clinical Impression: Syncope Qualifiers: Syncope type: unspecified Qualified Code(s): R55 - Syncope and collapse UTI (urinary tract infection) Qualifiers: Urinary tract infection type: site unspecified Hematuria presence: without hematuria Qualified Code(s): N39.0 - Urinary tract infection, site not specified Patient Disposition: Home, Self-Care Instructions: Urinary Tract Infection in Older Adults (ED) Additional Instructions: Take the Ciprofloxacin tomorrow. The antibiotic we give here will be good for 24 hour. Ask your primary care doctor for a Syncopal Work up Some times this may include an echocardiogram or a holter monitor. Prescriptions: New ciprofloxacin HCl 500 mg tablet 500 mg PO BID 7 Days Qty: 14 0RF No Action celecoxib 200 mg capsule 200 mg PO BID Qty: 60 3RF multivitamin Tablet 1 tab PO DAILY melatonin 5 mg Tablet 5 mg PO BEDTIME PRN (Reason: Sleep) albuterol sulfate 90 mcg/actuation HFA aerosol inhaler 2 puff inhalation Q4H PRN (Reason: Shortness Of Breath Or Wheezing) diltiazem HCl 120 mg capsule,extended release 24 hr 120 mg PO QAM albuterol sulfate 2.5 mg /3 mL (0.083 %) solution for nebulization 2.5 mg inhalation Q4H PRN (Reason: wheezing) (DME) blood pressure test kit-large Kit See Rx Instructions .ROUTE DAILY Qty: 1 Rx Instructions: As directed levothyroxine 125 mcg tablet 125 mcg PO QAM fluticasone propionate [Flovent HFA] 44 mcg/actuation HFA aerosol inhaler 1 puff inhalation BID Rx Instructions: administer with spacer metformin 1,000 mg tablet 1,000 mg PO BID rosuvastatin 10 mg tablet 10 mg PO DAILY Trulicity 0.75 mg/0.5 mL pen injector subcut Print Language: Urdu
[2025-09-12 19:05] LABS: Appearance Urine Clear; Glucose Urine UA >=1000 mg/dL (Negative); PH 5.5 (5.0-9.0); Specific Gravity - Urine 1.010 (1.005-1.025); UMIC TRIGGER UACC YES
[2025-09-12 19:10] LABS: UACC Culture Trigger YES
[2025-09-12 19:24] LABS: Hematocrit 39.2 % (37.0-47.0); Hemoglobin 12.9 g/dl (12.0-16.0); Imm Gran Abs Auto 0.02 X10*3/uL (0.00-0.03); Imm Gran Pct Auto 0.3 % (0.0-0.4); Lymphocytes Absolute Auto 2.5 X10*3/uL (1.2-4.9); Mean Corpuscular HGB Conc 32.9 g/dl (31.0-35.0); Mean Corpuscular Hemoglobin 27.7 pg (27.0-33.0); Mean Corpuscular Volume 84.1 fL (80.0-98.0); NRBC Abs Auto 0.000 X10*3/uL (0.0-0.012); NRBC Pct Auto 0.0 /100WBC (0.0-0.2); Platelet Count 306 X10*3/uL (160-400); Red Blood Count 4.66 X10*6/uL (4.20-5.50); White Blood Count 7.4 X10*3/uL (4.8-10.8)
[2025-09-12 19:29] LABS: INTERNATIONAL NORM RATIO 1.1 (0.9-1.1); Prothrombin Time 12.3 SEC (10.9-12.4)
[2025-09-12 19:39] LABS: Alanine Aminotransferase 9 U/L (0-31); Albumin Level 4.1 g/dL (3.5-5.0); Alkaline Phosphatase 61 U/L (39-117); Anion Gap 13 (12-20); Aspartate Amino Transferase 16 U/L (5-31); Blood Urea Nitrogen 13 mg/dL (9-16); Calcium 9.5 mg/dL (8.4-10.2); Carbon Dioxide 22 mmol/L (22-29); Chloride 109 mmol/L (96-108); Creatinine Clr Calc Pharmacy 52.3; Estimated Glomerular Filt Rate > 60; Magnesium 1.7 mg/dL (1.6-2.6); Potassium 4.7 mmol/L (3.3-5.1); Sodium 139 mmol/L (135-145); Total Protein 7.0 g/dL (6.5-8.0)
[2025-09-12 19:46] LABS: Troponin-I High Sensitivity 3.0 ng/L (<3.5-17.0)
--- OUTSIDE RECORDS SUMMARY | 2025-09-12 19:55 | XMS_ITS | Encounter Summary ---
Author Organization [employer] Address [address] [facility] 7t [place] [address] Care Team Providers Care Assistant Women'S Rowing Coach Name Role Phone Edna Norris Primary Care Provider [phone] Agustín Mahmood MD Unavailable [phone] Reason for Visit * Reason Comments Med Refill Encounter Details Date Type Department Care Team (Late st Contact Info) Description 12/12/2023 Refill [facility] [address] [place] [address] Edna Norris FNP [address] [place], [place] [id number] Social History Tobacco Use Types Packs/Day Years [...] documented as of this encounter Care Teams Assistant Women'S Rowing Coach Relationship Specialty Start Date End Date Edna Norris FNP [address] [place] [id number] PCP - General Family Medicine 03/02/23 Agustín Mahmood MD [address] [place] [address] [place] [address] Neurology 09/19/24 documented as of this encounter
--- OUTSIDE RECORDS SUMMARY | 2025-09-12 19:55 | XMS_ITS | Encounter Summary ---
Author Organization [facility] [employer] Address [address] [facility] [address] [place] [address] Care Team Providers Care Car Filler Name Role Phone Edna Norris Primary Care Provider [phone] Agustín Mahmood MD Unavailable [phone] Reason for Visit * Reason Onset Date Comments Med Refill 10/17/2023 Encounter Details Date Type Department Care Team ([facility] st Contact Info) Description 10/17/2023 Refill [facility] [address] [place] [address] Edna Norris FNP [address] [place], [place] [phone] Social History Tobacco Use Types Packs/Day Years [...] Author Blood Pressure < 140/90 Blood Pressure 120/70( 025 10:53 AM EDT) No Tricia Oliver, PharmD documented as of this encounter Visit Diagnoses Not on filedocumented in this encounter Additional Health Concerns Assessment Noted Time PHQ-9 Depression Total Score: 0 03/03/20 23 8:56 AM EDT documented as of this encounter Care Teams Car Filler Relationship Specialty Start Date End Date Edna Norris FNP [address] [place] [address] PCP - General Family Medicine 03/02/23 Agustín Mahmood MD [address] [place] [address] [place] [address] Neurology 09/19/24 documented as of this encounter
--- OUTSIDE RECORDS SUMMARY | 2025-09-12 19:55 | XMS_ITS | Encounter Summary ---
Author Organization [employer] Address [address] [facility] [address]t [place] [address] Care Team Providers Care Ballast Cleaning Machine Operator Name Role Phone Edna Norris Primary Care Provider [phone] Agustín Mahmood MD Unavailable [phone] Reason for Visit * Reason Onset Date Comments Med Refill 09/11/2025 Encounter Details Date Type Department Care Team (Late st Contact Info) Description 09/11/2025 Refill [facility] [address] [place] [address] Edna Norris FNP [address] [place], [place] [phone] Type 2 diabetes mellitus without complication, with long-term current use of insulin (HCC) Social History Tobacco Use Types Packs/Day Years [...] with long-term current use of insulin (HCC) documented in this encounter Additional Health Concerns Assessment Noted Time PHQ-9 Depression Total Score: 0 05/29/20 25 10:29 AM EDT documented as of this encounter Care Teams Ballast Cleaning Machine Operator Relationship Specialty Start Date End Date Edna Norris FNP [address] [place] [address] PCP - General Family Medicine 03/02/23 Agustín Mahmood MD [address] [place] [address] [place] [address] Neurology 09/19/24 documented as of this encounter
--- OUTSIDE RECORDS SUMMARY | 2025-09-12 19:55 | XMS_ITS | Encounter Summary ---
Author Organization [employer] Address [address] [place] [address] Care Team Providers Care Crate Opener Name Role Phone Edna Norris ANGELINE Primary Care Provider [phone] Agustín Mahmood MD Unavailable [phone] Encounter Details Date Type Department Care Team (Latest Contact Info) Description 09/11/2025 Travel Social History Tobacco Use Types Packs/Day [...] documented as of this encounter Care Teams Crate Opener Relationship Specialty Start Date End Date Edna Norris FNP [address] [place] [phone] PCP - General Family Medicine 03/02/23 Agustín Mahmood MD [address] [place] [address] Dr Benites [address] [place] [id number] Neurology 09/19/24 documented as of this encounter
--- OUTSIDE RECORDS SUMMARY | 2025-09-12 19:55 | XMS_ITS | Continuity of Care Document ---
Author Name [facility], Medical Address [address] [place] [id number] Organization Unknown Address [address] [place] [phone] Medications No known medications Problems No known problems
--- OUTSIDE RECORDS SUMMARY | 2025-09-12 19:55 | XMS_ITS | Encounter Summary ---
Author Organization [employer] Address [address] [place] [address] Care Team Providers Care Anodizing Line Operator Name Role Phone Edna Norris ANGELINE Primary Care Provider [phone] Agustín Mahmood MD Unavailable [phone] Encounter Details Date Type Department Care Team [...] documented as of this encounter Care Teams Anodizing Line Operator Relationship Specialty Start Date End Date Edna Norris FNP [address] [place] [phone] PCP - General Family Medicine 03/02/23 Agustín Mahmood MD [address] [place] [address] Dr Benites [address] [place] [id number] Neurology 09/19/24 documented as of this encounter
--- OUTSIDE RECORDS SUMMARY | 2025-09-12 19:55 | XMS_ITS | Encounter Summary ---
Author Organization [facility] Address [address] [place] [address] Encounters * CPT with Medical [facility] at [employer] on 2025-09-12 { reasonForRequest : Pt's daughter Mildred reporting 2nd time experiencing syncope , patientReports : , denies :[ Worst Headache of life ,"New onset of vision loss , Sudden onset -unilateral weakness/gait disturbance ,"Fall with head strike and altered LOC , New onset of Slurred speech or difficulty finding words , Sudden Mental status changes , Head pain with fever chills and neck pain , Seizure activity ], chiefComplaints : Dizziness , pmh& quot;: Hypertension, Dementia (e.g., Alzheimer's Disease), Diabetes Mellitus Type 2, Hypothyroidism, Osteoarthritis , allergies : Penicillins , otherAllergies : null, painAssessment : , visitOutcome : , additionalComments : Patient with syncope last week\nPatient with what daughter thinks was a syncopal now, nauseous and heard wrenching in the back round, ETA given to daughter and she opted to activate 911, which this nurse agreed- AC\n\n79 y.o female complains of Dizziness\n\nPatients DIL called back, patient stablized with normal vital signs and would prefer to keep patient home, and have her evaluated\nPatient had a syncopal episode last Tuesday, went to the ED, all testing and CT Head unre markable\nShe saw PCP yesterday, no testing was ordered, or neuro consult\nPatient just had a similiar episode about 20 minutes ago\nPatient always sits in her recliner, but does not typically nap- patient was in her recliner this evening, doze off and was unresonsive for a few minutes, then woke up nauseous and wrenching\nNo incontinence during episode, no history of seizures\nPatient is asymptomatic\nBP 146/78, HR 70, o2 98 on RA, CBG 82, however, patient has only had breakfast today\nPatientis presenting back to baseline\nNo chest pain or shortness of breath\nNo headaches or dizziness\nNo fever/chills\nDIL aware of what we can provide for services, and that she may need further work up\n\nI provided information on the mobile health provider response time and advised the patient and/orcaregiver to monitor reported signs and symptoms. I discussed the warning signs of when to seek emergency care. } Dispatched to above address for syncope. On arrival patients daughter in law met [facility] at the door, reports patient was found unresponsive in her recliner, unresponsive to voice and touch, had stable vital signs , now awake oriented per baseline of dementia, reporting feeling dizzy and nauseous. States this happened last week, was seen in the ER without findings, follow up with PCP yesterday also without findings. Patient 79 y/o F, found sitting in chair, AOX2 per baseline, airway patent, speaking in short sentences, good color, lethargic, in no apparent distress. Patients vital signs checked. Secondary assessment, pupils PERRL, airway patent, no JVD, trachea midline, equal chest rise and fall, lungs clear all gan, abdomen soft non tender, no signs of trauma, good radial pulse, skin pink warm and dry. Patient reports feeling a little better at this time. 12 lead EKG showed sinus rhythm. [facility] contacted, spoke with Dr. Hurd, advised of patient complaints an exam findings. [facility] recommends transport to ER for further evaluation and work up. Family agrees with this plan. 911 called. [facility] responded. Verbal report given to [facility], took over patient care will transport to [facility]. [facility] clear. EOR. IV_(FLUIDS_AND/OR_MEDICATION), POC_BLOODWORK, ORTHOSTATIC_VITAL_SIGNS, PO_MEDICATION Written by Medical [employer] on 2025-09-12
--- OUTSIDE RECORDS SUMMARY | 2025-09-12 19:55 | XMS_ITS | Encounter Summary ---
Author Organization [employer] [facility] Address [address] [place] [address] [address] [place] [address] Care Team Providers Care Cloth Roll Winder Name Role Phone JrOrtegacristiane MARCUS Primary Care Provider [phone] Agustín Mahmood MD Unavailable [phone] Reason for Referral * Consultation (Routine) - Pending Review Specialty Diagnoses / Procedures Referred By Snow almazan Referred To Contact Pharmacy Diagnoses Type 2 diabetes mellitus without complication, with long-term current use of insulin (HCC) Hypothyroidism, unspecified type Erika Motta MD [address] [place] [address] Phone: tel: fax: Referral ID Status Reason Start Date Expiration Date Visits Requested Visits Authorized [id number] Pending Review Continuity of Care 12/12/2024 12/12/2025 6 6 Scheduling Instructions Ongoing [facility] care Encounter Details Date Type Department Care Team (Late st Contact Info) Description 12/12/2024 Orders Only [facility] [address] [place], [place] [phone] Erika Motta MD [address] [place] [address] Type 2 diabetes mellitus without complication, with [...] as of this encounter Plan of Treatment Scheduled Referrals Name Type Priority Associated Diagnoses Orde r Schedule Referral to Pharmacy MTM Outpatient Referral Routine Type 2 diabetes mellitus without complication, with long-term current use of insulin ([facility]) Hypothyroidism, unspecified type Ordered: 12/12/2024 documented as of this encounter Goals Goal Patient Goal Type Associated Problems Recent Progress Patient-Stated? Author Blood Pressure < 140/90 Blood Pressure 120/70(2024 10:53 AM EDT) No Tricia Oliver PharmD Hemoglobin A1c < 8 Result Component 5.4( 5 10:55 AM EDT) No Mohamud Alcantara documented as of this encounter Visit Diagnoses Diagnosis Type 2 diabetes mellitus without complication, with long-term current use of insulin (HCC)- Primary Hypothyroidism, unspecified type documented in this encounter Additional Health Concerns Assessment Noted Time PHQ-9 Depression Total Score: 0 03/14/20 24 9:59 AM EDT documented as of this encounter Care Teams Cloth Roll Winder Relationship Specialty Start Date End Date Edna Norris FNP [address] [place] [id number] PCP - General Family Medicine 03/02/23 Agustín Mahmood MD [address] [place] [address] [place] [address] Neurology 09/19/24 documented as of this encounter
--- OUTSIDE RECORDS SUMMARY | 2025-09-12 19:55 | XMS_ITS | Clinical Summary ---
Author Organization [employer] Address [address] [place] [address] [address] [place] [address] Care Team Providers Care Emergency Veterinarian Name Role Phone IselaEdna josue ANGELINE Primary Care Provider [phone] Agustín Mahmood MD Unavailable Allergies Active Allergy Reactions Criticality Noted Date Comments Penicillins Rash High 03/03/2023 Other Reaction(s): Rash/Dermatitis Medications Blood Pressure kitIndications:P rimpaula hypertension Check Blood pressure daily and when symptomatic 1 kit 023 Active albuterol 108 (90 Base) MCG/ACT inhaler Inhale 2 puffs every 6 (six) hours if needed for wheezing. Active ciclopirox (Penlac) 8 % solution APPLY [...] not swallow. 1 each 025 2025 Active levothyroxine (Synthroid, Levoxyl) 75 MCG tabletIndication s:Hypothyroidism , unspecified type Take 1 tablet (75 mcg) by mouth in the morning. 90 tablet 1 Active lidocaine-priloc camron (Emla) 2.5-2.5 % cream APPLY A THIN LAYER TOPICALLY TO AFFECTED AREA(S) EVERY 8 HOURS NEEDED FOR PAIN 30 g 2 Active dilTIAZem ER (Tiazac) 120 MG 24 hr capsule TAKE 1 CAPSULE BY MOUTH EVERYDAY AT NOON 90 capsule 1 Active Alcohol Swabs 70 % pads 1 each if needed in the morning and at bedtime (checking blood sugar). 100 each Active melatonin 5 MG tablet TAKE 1 TABLET BY MOUTH AT BEDTIME NEEDED FOR SLEEP 90 tablet 3 Active pantoprazole (ProtoNix) 40 MG EC tablet TAKE 1 TABLET BY MOUTH EVERY DAY BEFORE MEALS NEEDED FOR HEARTBURN. DO NOT BREAK, CRUSH, DISSOLVE OR CHEW. 90 tablet 1 Active Dulaglutide (Trulicity) 0.75 MG/0.5ML solution auto-injectorInd ications:Type 2 diabetes mellitus without complication, with long-term current use of insulin (HCC) Inject 0.75 mg under the skin 1 (one) time per week. 2 mL 025 2025 Active rosuvastatin (Crestor) 10 MG tablet TAKE 1 TABLET BY MOUTH AT BEDTIME 90 tablet 3 Active empagliflozin (Jardiance) 25 MG Take 1 tablet (25 mg) by mouth Once per day. 90 tablet 1 025 2025 Active clotrimazole (Lotrimin) 1 % cream Apply topically 2 times daily for 28 days. 30 g 2 025 2024 Active mupirocin (Bactroban) 2 % ointment Apply topically 2 times daily for 14 days. 22 g 025 2024 Active rosuvastatin (Crestor) 10 MG tablet TAKE 1 TABLET BY MOUTH AT BEDTIME (for cholesterol) 90 tablet 3 024 2024 Discontinued empagliflozin-me tFORMIN ER (Synjardy XR) 25-1000 MG 24 hr tabletIndication s:Type 2 diabetes mellitus without complication, with long-term current use of insulin (HCC) Take 1 tablet by mouth with breakfast. 90 tablet 3 025 2024 Discontinued(T herapy completed) sodium zirconium cyclosilicate (Lokelma) 10 g packet Take 10 g by mouth Once per day for 3 days. 30 g 025 2024 Active Problems Problem Noted Date Diagnosed Date Osteoarthritis of hip 09/19/2024 Overview (09/19/2024): XR right hip Aug 2024: no acute fx or dislocation. 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 Sep 2024: reporting discomfort in left hip - referred to [facility] Ortho for further eval 09/19/24 Cervical spondylosis [...] Continue with topical supportive measures Oct 2024: [facility] Ortho consult, injection declined Follow up for physical therapy referral if interested in future Assessment & Plan (11/28/2024 12:55 PM EST): XR completed Aug 2024 c/w degenerative changes Continue with topical supportive measures Oct 2024: [facility] Ortho consult, injection declined Plan for physical therapy Assessment & Plan (09/19/2024 3:36 PM EST): Check XR Continue with topical supportive measures Referral to Ortho placed 09/19/24 Assessment & Plan (06/13/2024 7:34 PM EDT): Check XR Continue with topical supportive measures Consider physical therapy referral Healthcare maintenance 10/16/2023 Overview (02/27/2025): Optometry: 11/26/2024: RUDY @ [facility]. Dental: referral to [facility] Dental 03/14/24 Alzheimer disease 07/01/2023 Overview (06/13/2024): 08/16/23: MRI brain by Dr. Mahmood for Alzheimer's disease and syncope w/ following impression - 1. Mild generalized cerebral volume loss and mild chronic white matter microangiopathy. 2. Otherwise unremarkable noncontrast MRI of the brain. Assessment & Plan (09/11/2025 4:30 PM EDT): Cont following with specialist Encouraged to continue engaging physically and mentally throughout the day Information regarding Alzheimer's Association previously provided Assessment & Plan (05/29/2025 2:29 PM EDT): Cont following with specialist Encouraged to continue engaging physically and mentally throughout the day Information regarding Alzheimer's Association provided Assessment & Plan (06/13/2024 7:40 PM EDT): Interested in eval with [facility], referral placed. Encouraged to continue engaging [...] episode. No known history of CVA or TN ED precautions Cardiology evaluation by [facility] Cards - Dr. Garcia January 2024: Stress [...] episode. No known history of CVA or TN Reports intermittent SOB - possibly related to deconditioning, cardiac, respiratory, or other origin Referral for eval with Cardiology placed 06/29/23 ED precautions Type 2 diabetes mellitus wit hout complication, with long-term current use of insulin 03/03/2023 Overview (09/11/2025): Lab Results Component Value Date HGBA1C 5.4 [...] post prandial goal: <180 Assessment & Plan (09/11/2025 4:28 PM EDT): - Well controlled, plan to remove metformin from the combo pill (de- prescribing). She will cont with the Jardiance and Trulicity. Med box team notified Assessment & Plan (05/29/2025 4:40 PM EDT): [...] Encounters Date Type Department Care Team Description 09/11/2025 10:30 AM EDT Office Visit [facility] [address] [place] [phone] Edna Norris FNP Type 2 diabetes mellitus without complication, with long-term current use of insulin (HCC) (Primary Dx); Hyperkalemia; Alzheimer disease (HCC); Skin lesion 09/11/2025 Refill [facility] [address] [place] [phone] Edna Norris FNP 09/11/2025 Refill [facility] [address] [place] [address] Edna Norris FNP Type 2 diabetes mellitus without complication, with long-term current use of insulin ([facility]) 09/11/2025 Travel 09/10/2025 Refill [facility] [address] [place] [address] Edna Norris FNP 09/09/2025 Travel 09/04/2025 Orders Only [facility] External Provider, [facility] 08/28/2025 Results Follow-Up [facility] [address] [place] [address] Edna Norris FNP Albumin, Random Urine W/Creatinine, Lipid Panel, Standard, Comprehensive Metabolic Panel, Additional followed-up results: 2 08/26/2025 Travel 08/12/2025 Refill [facility] [address] [place] [address] Edna Norris FNP Type 2 diabetes mellitus without complication, with long-term current use of insulin ([facility]) 06/20/2025 Telephone [facility] [address] [place] [address] Edna Norris FNP Letter of Medical Necessity: Wheelchair 06/16/2025 Refill [facility] [address] [place] [address] Edna Norris FNP from Last 3 Months [...] Mass Index 28.78 09/11/2025 10:53 AM EDT Plan of Treatment Health Maintenance Due Date Last Done Comments Eye Exam 1955 Diabetes: Foot Exam 03/14/2025 03/14/2024, 03/14/2024, 03/14/2024, Additional history exists Diabetes: Hemoglobin A1C 03/12/2026 025, 05/29/2025, 02/27/2025, Additional history exists Alcohol/Substance Use Screening 05/29/2026 05/29/2025 Depression Screening 05/29/2026 05/29/2025, 05/29/20 SDOH Screening 05/29/2026 05/29/2025 Tobacco Screening 05/29/2026 05/29/2025 Diabetes: Urine Protein Screening 08/27/2026 08/27/2025, 04/24/2024, 03/03/2023 Lipid Panel 08/27/2026 08/27/2025, 04/14, 03/03/2023 COVID-19 Vaccine ( - season) 2026 Postponed from 07/15/2025 (Patient Refused) DTaP/Tdap/Td Vaccines (2 - Td or Tdap) [...] 5.4( 10:55 AM EDT) No Mohamud Alcantara Procedures Procedure Name Priority Date/Time Associated Diagnosis Comments POCT GLYCATED HEMOGLOBIN, TOTAL Routine 09/11/2025 10:55 AM EDT Type 2 diabetes mellitus without complication, with long-term current use of insulin ([facility]) POCT GLUCOSE Routine 09/11/2025 10:54 AM EDT Type 2 diabetes mellitus without complication, with long-term current use of insulin ([facility]) BASIC METABOLIC PANEL Routine 09/10/2025 9:32 AM EDT Hyperkalemia TSH W/REFLEX TO FT4 Routine 09/10/2025 9 :32 AM EDT Healthcare maintenance CT HEAD WO CONTRAST Routine 09/04/2025 1 0:04 PM EDT VITAMIN B12 Routine 08/27/2025 8:42 AM EDT Type 2 diabetes mellitus without complication, with long-term current use of insulin ([facility]) CBC WITH AUTO DIFFERENTIAL Routine 08/27/2025 8:42 AM EDT Healthcare maintenance COMPREHENSIVE METABOLIC PANEL Routine 08/27/2025 8:42 AM EDT Type 2 diabetes mellitus without complication, with long-term current use of insulin ([facility]) LIPID PANEL, STANDARD Routine 08/27/2025 8:42 AM EDT Type 2 diabetes mellitus without complication, with long-term current use of insulin ([facility]) ALBUMIN, RANDOM URINE W/CREATININE Routine 08/27/2025 8:42 AM EDT Type 2 diabetes mellitus without complication, with long-term current use of insulin (HCC) TSH W/REFLEX TO FT4 Routine 08/27/2025 8 :42 AM EDT Hypothyroidism, unspecified type HEPATITIS C AB W/REFL TO HCV RNA, QN, PCR Routine 03/03/2023 9:58 AM EDT Routine health maintenance from Last 3 Months or Most Recently Relevant to Health Maintenance Results * POCT Hgb A1c (09/11/2025 10:55 AM EDT) Hemoglobin A1C 5.4 4.0 - 5.7 % [employer] Lot # [id number] Lot# Expiration Date , Blood 09/11/2025 10:5 5 AM EDT Edna CardKillen [facility] POINT OF CARE TEST ENTER/EDIT ORDERABLES Final Result * POCT Glucose (09/11/2025 10:54 AM EDT) Glucose Blood, POC 128 60 - 200 mg/dL [employer] Lot # [id number] Lot# Expiration Date ,026 Blood Capillary blood specimen / Unknown 09/11/2025 10:54 AM EDT [facility] POINT OF [facility]ARE TEST ENTER/EDIT ORDERABLES Final Result * TSH with Reflex to Free T4 (09/10/2025 9:32 AM EDT) Only the most recent of2 resultswithin the time period is included. TSH reflex Free T4 1.75 0.32 - 4.0 uIU/mL [facility] Blood 09/10/2025 9:32 AM EDT 09/10/2025 11:13 AM EDT us Edna Norris SERVICE WORKER HELPER LAB BLOOD ORDERABLES Final Res ult Performing Organization Address [facility] Co de Phone Number [facility] [address] [place] [phone] * Basic Metabolic Panel (09/10/2025 9:32 AM EDT) Sodium 139 135 - 145 mmol/L [facility] Potassium 4.7 3.3 - 5.1 mmol/L [facility] Chloride 107 96 - 108 mmol/L [facility] Carbon Dioxide 25 22 - 29 mmol/L [facility] Anion Gap 12 12 - 20 [facility] Urea Nitrogen (BUN) 12 9 - 16 mg/dL [facility] Creatinine, Serum 0.73 0.5 - 1.4 mg/dL [facility] Estimated Glomerular Filt Rate >60 [facility] Comment:Chronic Kidney Disea se: Estimated GFR < 60 mL/min/[id number] Kidney Disease: Estimated GFR < 15 mL/min/1.73m2 Glucose 95 60 - 115 mg/dL [facility] Calcium 9.6 8.4 - 10.2 mg/dL [facility] Blood Venous blood specimen / Unknown 09/10/2025 9:32 AM EDT 09/10/2025 11:13 AM EDT us Edna Norris SERVICE WORKER HELPER LAB BLOOD ORDERABLES Final Res ult Performing Organization Address [facility] Co de Phone Number [facility] [address] [place] [phone] * CT Head w/o Contrast (09/04/2025 10:04 PM EDT) Anatomical Region Laterality Modality Head, Neck Computed Tomogra phy 09/04/2025 10:0 4 PM EDT Narrative 09/04/2025 10:06 PM EDT [address] [address] [address] Scan Report Signed Patient: Vida Amado MR#: [id number] : 1945 Acct:[id number] Age/Sex: 79 / F ADM Date: 09/04/25 Loc: HO.ED Attending Dr: Ordering Physician: Birdie John DO Date of Service: 09/04/25 Procedure(s): CT head/brain wo IV con Accession Number(s): [id number] cc: Birdie John DO; Edna Norris SERVICE WORKER HELPER Report Number: [id number]: Total DLP = 534.00 mGy-cm Reason for [...] in OV> 09/04/252205 DD/ 03 TD/TT: 09/04/252203 Roll Dough Divider: Procedure Note Donotuseinterpreter, Image - 09/04/[address] [place] [address] [address] Scan Report Signed Patient: Dilcia AmadoR#: [id number] : 5Acct:[id number] Age/Sex: 79 / FADM Date: 09/04/25 Loc: .ED Attending Dr: Ordering Physician: Birdie John DO Date of Service: 09/04/25 Procedure(s): CT head/brain wo IV con Accession Number(s): [id number] cc: Birdie John DO; Edna Norris Report Number: [id number]: Total DLP = 534.00 mGy-cm Reason for [...] in OV> 09/04/252205 DD/ 03 TD/TT: 09/04/252203 Roll Dough Divider: [facility] External Provider IMG CT PROCEDURES Edited Result - Final * Albumin, Random Urine W/Creatinine (08/27/2025 8:42 AM EDT) Creatinine, Urine 128.42 mg/dL [facility] Microalbumin Urine 13.0 mg/L [facility] Microalbum Creatinine Ratio Ur 10.1 <30 ug/mg cr [facility] Comment:Albumin/Creatinine R atio Reference Ranges: Normal: < 30 ug/mg creatinine Microalbuminuria: 30 - 300 ug/mg creatinineClinical Albuminuria: > 300 ug/mg creatinine Urine 08/27/2025 8:42 AM EDT 08/27/2025 11:23 AM EDT Edna Norris SERVICE WORKER HELPER LAB URINE ORDERABLES Final Res ult [facility] [address] [place] [phone] * CBC auto differential (08/27/2025 8:42 AM EDT) White Blood Count 6.3 4.8 - 10.8 X10*3/uL [facility] Red Blood Count 5.06 4.20 - 5.50 X10*6/uL [facility] Hemoglobin 13.9 12.0 - 16.0 g/dl [facility] Hematocrit 43.6 37.0 - 47.0 % [facility] Mean Corpuscular Volume 86.2 80.0 - 98.0 fL [facility] Mean Corpuscular Hemoglobin 27.5 27.0 - 33.0 pg [facility] Mean Corpuscular HGB Conc 31.9 31.0 - 35.0 g/dl [facility] Red Cell Distribution Width 13.9 11.0 - 16.0 % [facility] Platelet Count 360 160 - 400 X10*3/uL [facility] Mean Platelet Volume 9.6 9.4 - 12.3 fL [facility] Neutrophils Percent Auto 58.5 45 - 73 % [facility] Imm Gran Pct Auto 0.3 0.0 - 0.4 % [facility] Lymphocytes Percent Auto 31.2 20 - 40 % [facility] Monocytes Percent Auto 6.5 2 - 11 % [facility] Eosinophils Percent Auto 2.7 0 - 4 % [facility] Basophils Percent Auto 0.8 0 - 2 % [facility] NRBC Pct Auto 0.0 0.0 - 0.2 /100WBC [facility] Neutrophils Absolute Auto 3.7 2.0 - 8.3 x10*3/uL [facility] Imm Gran Abs Auto 0.02 0.00 - 0.03 X10*3/uL [facility] Lymphocytes Absolute Auto 2.0 1.2 - 4.9 X10*3/uL [facility] Monocytes Absolute Auto 0.4 0.1 - 1.2 X10*3/uL [facility] Eosinophils Absolute Auto 0.2 0.0 - 0.4 X10*3/uL [facility] Basophils Absolute Auto 0.1 0.0 - 0.2 X10*3/uL [facility] NRBC Abs Auto 0.000 0.0 - 0.012 X10*3/uL [facility] Blood Venous blood specimen / Unknown 08/27/2025 8:42 AM EDT 08/27/2025 11:25 AM EDT us Edna Norris SERVICE WORKER HELPER LAB BLOOD ORDERABLES Final Res ult [facility] [address] [place] [phone] * Vitamin B12 (08/27/2025 8:42 AM EDT) Vitamin B12 208 200 - 900 pg/mL [facility] Comment:NORMAL 200-900 PG/ML INDETERMINATE 160-199 PG/ML DEFICIENT < 160 PG/ML Blood Venous blood specimen / Unknown 08/27/2025 8:42 AM EDT 08/27/2025 11:25 AM EDT us Edna Norris SERVICE WORKER HELPER LAB BLOOD ORDERABLES Final Res ult [facility] [address] [place] [phone] * Lipid Panel, Standard (08/27/2025 8:42 AM EDT) Triglycerides 129 <150 mg/dL [facility] Comment:Desirable Triglyceri de: less than 150 mg/dLBorderline High Triglyceride 150-199 mg/dLHigh Triglyceride: 200-499 mg/dLVery High Triglyceride: greater than or equal to 5OO mg/dL Cholesterol 145 <200 mg/dL [facility] Comment:Desirable Cholestero l: less than 200 mg/dLBorderline High Cholesterol: 200-239 mg/dLHigh Cholesterol: greater than 239 mg/dL LDL Cholesterol Calculated 62 <100 mg/dL [facility] Comment:Desirable LDL: less than 100 mg/dLNear Optimal/Above Optimal LDL: 110- 129 mg/dLBorderline High LDL: 130-159 mg/dLHigh LDL: 160-189 mg/dLVery High LDL: greater than or equal to 190 mg/dL HDL Cholesterol 58 >40 mg/dL [facility] Comment:Desirable HDL: great er than 40 mg/dL Note: This HDL assay may give artificially low results in patients with liver disease. Blood Venous blood specimen / Unknown 08/27/2025 8:42 AM EDT 08/27/2025 11:25 AM EDT us Edna Phalen SERVICE WORKER HELPER LAB BLOOD ORDERABLES Final Res ult Performing Organization Address City/[facility]/ZIP Co de Phone Number [facility] [address] [place] [phone] * (ABNORMAL) Comprehensive Metabolic Panel (08/27/2025 8:42 AM EDT) Sodium 141 135 - 145 mmol/L [facility] Potassium 5.5(H) 3.3 - 5.1 mmol/L [facility] Chloride 108 96 - 108 mmol/L [facility] Carbon Dioxide 25 22 - 29 mmol/L [facility] Anion Gap 14 12 - 20 [facility] Urea Nitrogen (BUN) 13 9 - 16 mg/dL [facility] Creatinine, Serum 0.80 0.5 - 1.4 mg/dL [facility] Estimated Glomerular Filt Rate >60 [facility] Comment:Chronic Kidney Disea se: Estimated GFR < 60 mL/min/1.50r2Mnjrre Kidney Disease: Estimated GFR < 15 mL/min/1.73m2 Glucose 114 60 - 115 mg/dL [facility] Calcium 9.8 8.4 - 10.2 mg/dL [facility] Bilirubin, Total 0.3 0.0 - 1.0 mg/dL [facility] Aspartate Amino Transferase 21 5 - 31 U/L [facility] Alanine Aminotransferase 6 0 - 31 U/L [facility] Total Protein 7.5 6.5 - 8.0 g/dL [facility] Albumin Level 4.4 3.5 - 5.0 g/dL [facility] Alkaline Phosphatase 67 39 - 117 U/L [facility] Blood Venous blood specimen / Unknown 08/27/2025 8:42 AM EDT 08/27/2025 11:25 AM EDT us Edna Norris [facility] BLOOD ORDERABLES Final Res ult Performing Organization Address City/[facility]/ZIP Co de Phone Number [facility] [address] [place] [phone] [phone] * Hepatitis C Antibody with Reflex to HCV, RNA, Quantitative, Real-Time PCR (03/03/2023 9:58 AM EDT) Hepatitis C Antibody NON-REACT SYLVIE NON-REACT SYLVIE [employer] Index 0.08 <1.00 [employer] Comment: HCV antibody was non-reactive. There is no laboratory evidence of HCV infection. In most cases, no further action is required. However, if recent HCV exposure is suspected, a test for HCV RNA (test code 07916) is suggested. For additional information please refer to http://education.Undertone/faq/MZM68y6 (This link is being provided for informational/ educational purposes only.) Blood Venous blood specimen / Unknown 03/03/2023 9:58 AM EDT 03/03/2023 9:59 AM EDT Narrative [facility] - 03/07/2023 5:30 PM EDT FASTING:NO FASTING: NO Edna Norris [facility] BLOOD ORDERABLES Final Res ult [facility] [address], [place] [phone] [employer] [place] [employer] [address] [place] [phone] from Last 3 Months or Most Recently Relevant to Health Maintenance Insurance [employer] [facility] [facility] [employer] (HMO D-SNP) KATIE RUSH [id number] Care Teams Emergency Veterinarian Relationship Specialty Start Date End Date Edna Norris FNP [address] [place] [address] [place] [address] PCP - General Family Medicine 03/02/23 Agustín Mahmood MD [address] [place] [address] [place] [address] Neurology 09/19/24
--- OUTSIDE RECORDS SUMMARY | 2025-09-12 19:55 | XMS_ITS | Data Portability ---
Author Organization [employer], [facility] Address [address] [place] [address] Care Team Providers Care Terrazzo Journeyman Name Role Phone HIM CCA OTHER Unavailable Primary Care Provider Assessment Encounter Date Assessment Date Assessment LastModified by Organization Details LastModified Time 09/12/2025 09/12/2025 As noted, we were called to see this patient regarding concerns of syncope. Evaluation in the field was performed by my rn research colleague, as noted above, I provided real-time direction and supervision for this visit. The evaluation revealed 79y w second episode of syncope without precipitating triggers. Patient was alone today and cannot remember what happened - believes she was sitting in recliner and cannot remember what came next. Daughter/caregiv er belives she may have had LOC for 20 min. Episode last week, cleared in ED and referred for further workup. EKG showing low voltage QRS, borderline lelia, flat or absent p waves. Given unclear etiology, prolonged episode, persistent nausea post event, will refer back to ED. Impression: syncope Plan: ED referral [facility] 09/12/2025 18:27:20 Plan of Treatment Reminders Order Date Submit Date Provider Last Modified By Organization Details Last Modified Time Details Appointments Urgent Care 2024 05:53P Clara Hurd MD Not available Not available Not available Lab None recorded . Referral None recorded . Procedures None recorded . Surgeries None recorded . Imaging None recorded . Medication Orders None recorded . Patient TargetsNo targets recorded. Patient InstructionsNo instructions recorded. Reason for Referral None Reported. Medical Equipment None Reported. Allergies Allergen ID Allergen Name Allergen Category Reaction Reaction Severity Criticality Documentation Date Start Date Code Code System Note Provider Name and Address Organization Details Recorded Time 33419 Product containin g penicilli n (product) medicatio n Not available Not available Not available 09/12/2025 41037 2607 SNOMED Not Available [facility] - production 17:00:41 Medications Name Sig Start Date Stop Date Status Note LastModified by Organization Details LastModified Time multivitami n tablet TAKE 1 TABLET BY MOUTH EVERYDAY AT NOON active Not Available Not Available No t Available celecoxib 200 mg capsule TAKE 1 CAPSULE BY MOUTH TWICE DAILY active Not Available Not Available No t Available lidocaine-p rilocaine 2.5 %-2.5 % topical cream APPLY A THIN LAYER TOPICALLY TO AFFECTED AREA(S) EVERY 8 HOURS NEEDED FOR PAIN active Not Available Not Available No t Available levothyroxi ne 75 mcg tablet TAKE 1 TABLET BY MOUTH EVERY MORNING active Not Available Not Available No t Available diltiazem ER 120 mg capsule,24 hr,extended release TAKE 1 CAPSULE BY MOUTH EVERYDAY AT NOON active Not Available Not Available No t Available pantoprazol e 40 mg tablet,luis yed release TAKE 1 TABLET BY MOUTH EVERY DAY BEFORE MEALS NEEDED HEARTBURN DO NOT BREAK, CRUSH, DISSOLVE OR CHEW active Not Available Not Available No t Available metformin 1,000 mg tablet TAKE 1 TABLET BY MOUTH TWICE DAILY AT NOON AND IN THE EVENING active Not Available Not Available No t Available mupirocin 2 % topical ointment APPLY TOPICALLY TO THE AFFECTED AREA(S) TWICE DAILY FOR FOURTEEN DAYS active Not Available Not Available No t Available clotrimazol e 1 % topical cream APPLY TOPICALLY TO THE AFFECTED AREA(S) TWICE DAILY FOR 28 DAYS active Not Available Not Available No t Available azithromyci n 500 mg tablet TAKE 1 TABLET BY MOUTH EVERY DAY UNTIL GONE 09/12 completed Not Available Not Available Not Available rosuvastati n 10 mg tablet TAKE 1 TABLET BY MOUTH AT BEDTIME active Not Available Not Available No t Available melatonin 5 mg tablet TAKE 1 TABLET BY MOUTH AT BEDTIME NEEDED FOR SLEEP active Not Available Not Available No t Available OneTouch Verio test strips USE DIRECTED TO TEST BLOOD SUGAR THREE TIMES DAILY active Not Available Not Available No t Available Easy Touch Alcohol Prep Pads USE TWICE DAILY IN THE MORNING AND AT BEDTIME active Not Available Not Available No t Available Jardiance 25 mg tablet TAKE 1 TABLET BY MOUTH EVERYDAY AT NOON active Not Available Not Available No t Available Trulicity 0.75 mg/0.5 mL subcutaneou s pen injector INJECT ONE PEN (=0.75MG) SUBCUTANE OUSLY ONCE A WEEK DIRECTED active Not Available Not Available No t Available Asmanex HFA 100 mcg/actuati on aerosol inhaler INHALE 1 PUFF BY MOUTH TWICE DAILY, RINSE MOUTH AFTER USING. active Not Available Not Available No t Available Arnuity Ellipta 100 mcg/actuati on powder for inhalation INHALE 1 PUFF BY MOUTH EVERY DAY AT THE SAME TIME RINSE MOUTH AFTER USING active Not Available Not Available No t Available Synjardy XR 25 mg-1,000 mg tablet, extended release TAKE 1 TABLET BY MOUTH EVERY MORNING active Not Available Not Available No t Available Lokelma 10 gram oral powder packet MIX AND DRINK 1 PACKET DAILY FOR 3 DAYS active Not Available Not Available No t Available OneTouch Delica Plus Lancet 33 gauge USE DIRECTED TO TEST BLOOD SUGAR THREE TIMES DAILY active Not Available Not Available No t Available Vitals Date Recorded Body temperature Oxygen saturation Oxygen saturation in Arterial blood by Pulse oximetry Respiratory rate Heart rate Systolic And Diastolic Provider Name and Address Organization Details Last Updated DateTime 98.2 [degF] 99 % 99 % 26 /min 64 /min 134/71 mm[Hg] Not Available [facility] - production 17:53:09 Social History None recorded. Functional Status None recorded. Mental Status None recorded. Family History Nothing Reported. Medical History No medical history recorded. Gynecological HistoryNo gynecological history recorded. Obstetrics History GPAL:G 0 P 0 0 0 0 Past Encounters Encounter ID Performer Location Encounter Start Date Encounter Closed Date Diagnosis/Indication Diagnosis SNOMED-CT Code Diagnosis ICD10 Code Diagnosis IMO Codes Diagnosis Note [id number] Lola Hurd MD [facility] ED Medical [address] [address] 09/12/2025 17:52:59 09/12/2025 18:58:03 Syncope symptom [id number] R55 [id number] Health Concerns Section Related Observation LastModified by Organization Detai ls LastModified Time None Recorded Concern Status LastModified by Organization Details LastModified Time None Recorded Advance Directives Directive None Recorded Payers Insurance Date Sequence Insurance Name Policy Number Policy Moon Covered Member ID Moon Member ID Guarantor Name 09/12/2025 1 [facility] - DOS ON OR AFTER 2023 - DUAL ELIGIBLE - JAIL OPTIONS AND ONE CARE (MEDICARE REPLACEMENT/ADV ANTAGE - HMO) Vida Aneudy [id number] Vida E Aneudy Notes Date Note Type Note Provider Name and Address Organization Details Recorded Time 09/12/2025 text/html CRC Nurse Triage Notes (Britney Schmitz - RN): Reason For Request: Pt's daughter Mildred reporting 2nd time experiencing syncope Denies: Worst Headache of life New onset of vision loss Sudden onset -unilateral weakness/gait disturbance Fall with head strike and altered LOC New onset of Slurred speech or difficulty finding words Sudden Mental status changes Head pain with fever chills and neck pain Seizure activity Chief Complaints: Dizziness PMH: Hypertension, Dementia (e.g., Alzheimer's Disease), Diabetes Mellitus Type 2, Hypothyroidism, Osteoarthritis PMH Reviewed at 09/12/2025 - :00 Allergies Reviewed at 09/12/2025 - : Comments: Patient with syncope last week Patient with what daughter thinks was a syncopal now, nauseous and heard wrenching in the back round, ETA given to daughter and she opted to activate 911, which this nurse agreed- AC 79 y.o female complains of Dizziness Patients DIL called back, patient stablized with normal vital signs and would prefer to keep patient home, and have her evaluated Patient had a syncopal episode last Tuesday, went to the ED, all testing and CT Head unremarkable She saw PCP yesterday, no testing was ordered, or neuro consult Patient just had a similiar episode about 20 minutes ago Patient always sits in her recliner, but does not typically nap- patient was in her recliner this evening, doze off and was unresonsive for a few minutes, then woke up nauseous and wrenching No incontinence during episode, no history of seizures Patient is asymptomatic BP 146/78, HR 70, o2 98 on RA, CBG 82, however, patient has only had breakfast today Patient is presenting back to baseline No chest pain or shortness of breath No headaches or dizziness No fever/chills DIL aware of what we can provide for services, and that she may need further work up I provided information on the mobile health provider response time and advised the patient and/or caregiver to monitor reported signs and symptoms. I discussed the warning signs of when to seek emergency care. Workforce Development Program Director Organization Information for Matty Lorenzo Business Legal Name: [employer] Address: [address] [place] [address] [place] [address], Ticket Seller: Bossman Obrien MD [facility] No.: [id number] Workforce Development Program Director POC Test Results from Matty Lorenzo - ALS EKG (17:36:12) EKG test performed. Attachments uploaded as part of this test result can be found under Documents section. EKG (17:36:12) - This test has been updated by the rn research, Matty Lorenzo at (09/12/2025 18:03:30). The changes are marked in bold. EKG test performed. Attachments uploaded as part of this test result can be found under Documents section. .................... .................... .................... .................... .................... .................... .................... . Workforce Development Program Director Note From Matty Lorenzo: Dispatched to above address for syncope. On [...] time. 12 lead EKG showed sinus rhythm. [facility] contacted, spoke with Dr. Hurd, advised of patient complaints an exam findings. [facility] recommends transport to ER for further evaluation and work up. Family agrees with this plan. 911 called. [facility] responded. Verbal report given to Dieter Workforce Development Program Director, took over patient care will transport to [facility]. SC8 clear. EOR. .................... .................... .................... .................... .................... .................... .................... . [facility] Consulted: Lola Hurd .................... .................... .................... .................... .................... .................... .................... . Disposition: Fulfilled Lola Hurd MD [address] [place] [address],[address], [place], [address], [employer] 09/12/2025 18:27:41 OBGyn Episode No OBEpisode recorded.
--- OUTSIDE RECORDS SUMMARY | 2025-09-12 19:55 | XMS_ITS | Continuity of Care Document ---
Author Organization [employer], [facility] Address [address] [place] [address] Care Team Providers Care Chief Substation Operator Name Role Phone HIM CCA OTHER Unavailable Primary Care Provider Assessment Encounter Date Assessment Date Assessment LastModified by Organization Details LastModified Time 09/12/2025 09/12/2025 As noted, we were called to see this patient regarding concerns of syncope. Evaluation in the field was performed by my shared services representative colleague, as noted above, I provided real-time [...] ED referral [facility] 09/12/2025 18:27:20 Plan of [...] Name and Address Organization Details Recorded Time 73159 Product containin g penicilli n (product) medicatio n Not available Not available Not available 09/12/2025 49948 5001 SNOMED Not Available [facility] - production 17:00:41 [...] ICD10 Code Diagnosis IMO Codes Diagnosis Note [id number] Lola Hurd MD [facility] [address] [address] 09/12/2025 17:52:59 09/12/2025 18:58:03 Syncope symptom [id number] R55 [id number] Health Concerns Section Related Observation LastModified by Organization Detai ls LastModified Time None Recorded Concern Status LastModified by Organization Details LastModified Time None Recorded Payers Encounter Date Sequence Insurance Name Policy Number Policy Moon Covered Member ID Moon Member ID Guarantor Name 09/12/2025 1 [facility] - DOS ON OR AFTER 2023 - DUAL ELIGIBLE - RESIDENTIAL OPTIONS AND ONE CARE (MEDICARE REPLACEMENT/ADV ANTAGE - HMO) Vida Amado [id number] Vida Amado Notes Date Note Type Note Provider Name [...] signs of when to seek emergency care. [place] Organization Information for Matty Lorenzo Business Legal Name: [employer]. Address: [address] [place] [address], Distribution Center Assistant: Bossman Obrien MD ST[facility] No.: [id number] [facility] POC Test Results from Matty Lorenzo - ALS EKG (17:36:12) EKG test performed. Attachments uploaded as part of this test result can be found under Documents section. EKG (17:36:12) - This test has been updated by the shared services representative, Matty Lorenzo at (09/12/2025 18:03:30). The changes are marked in bold. EKG test performed. Attachments uploaded as part of this test result can be found under Documents section. .................... .................... .................... .................... .................... .................... .................... . [place] Note From Matty Lorenzo: Dispatched to above [...] Family agrees with this plan. 911 called. [facility] responded. Verbal report given to Dieter [place], took over patient care will transport to [facility]. SC8 clear. EOR. .................... .................... .................... .................... .................... .................... .................... . [facility] Consulted: Lola Hurd .................... .................... .................... .................... .................... .................... .................... . Disposition: Fulfilled Lola Hurd MD [address] [facility],[address], [place], [address], [facility] 09/12/2025 18:27:41 OBGyn Episode No OBEpisode recorded.
--- OUTSIDE RECORDS SUMMARY | 2025-09-12 19:55 | XMS_ITS | Encounter Summary ---
Author Organization [employer] Address [address] [facility] 7t [place] [address] Care Team Providers Care Dressage Instructor Name Role Phone Edna Norris Primary Care Provider [phone] Agustín Mahmood MD Unavailable [phone] Encounter Details Date Type Department Care Team ([facility] st Contact Info) Description 04/25/2024 Orders Only [facility] MED & PEDS [address] [place] [address] Edna Norris FNP [address] [place] [address] Hyperkalemia (Primary Dx) Social History Tobacco Use [...] Pressure 120/70(2024 10:53 AM EDT) No Tricia Oliver, Sarmad Hemoglobin A1c < 8 Result Component 5.4( 10:55 AM EDT) No Mohamud Alcantara documented as of this encounter Procedures Procedure Name Priority Date/Time Associated Diagnosis Comments BASIC METABOLIC PANEL Routine 05/10/2024 9:53 AM EDT Hyperkalemia documented in this encounter Results * (ABNORMAL) Basic Metabolic Panel (05/10/2024 9:53 AM EDT) Sodium 137 135 - 145 mmol/L [facility] Potassium 4.7 3.3 - 5.1 mmol/L [facility] Chloride 103 96 - 108 mmol/L [facility] Carbon Dioxide 24 22 - 29 mmol/L [facility] Anion Gap 15 12 - 20 [facility] Urea Nitrogen (BUN) 11 9 - 16 mg/dL [facility] Creatinine, Serum 0.76 0.5 - 1.4 mg/dL [facility] Estimated Glomerular Filt Rate >60 [facility] Comment:NOTE: For -Am erican individuals, multiply the result by 1.210.Chronic Kidney Disease: Estimated GFR < 60 mL/min/1.36z7Vvosuo Kidney Disease: Estimated GFR < 15 mL/min/1.73m2 Glucose 183(H) 60 - 115 mg/dL [facility] Calcium 9.7 8.4 - 10.2 mg/dL [facility] Blood Venous blood specimen / Unknown 05/10/2024 9:53 AM EDT 05/10/2024 11:17 AM EDT us Edna MARCUS [facility] BLOOD ORDERABLES Final Res ult [facility] [address] [place] [address] [phone] documented in this encounter Visit Diagnoses Diagnosis Hyperkalemia- Primary Hyperpotassemia documented in this encounter Additional Health Concerns Assessment Noted Time PHQ-9 Depression Total Score: 0 03/14/20 9:59 AM EDT documented as of this encounter Care Teams Dressage Instructor Relationship Specialty Start Date End Date Edna Norris FNP [address] [place] [address] PCP - General Family Medicine 03/02/23 Agustín Mahmood MD [address] [place] [address] [address] [facility] [place] [address] Neurology 09/19/24 documented as of this encounter
--- OUTSIDE RECORDS SUMMARY | 2025-09-12 19:55 | XMS_ITS | Encounter Summary ---
Author Organization [employer] Address [address] [facility] 7[address] [place] [address] Care Team Providers Care Padder Cushion Name Role Phone Edna Norris Primary Care Provider [phone] Agustín Mahmood MD Unavailable [phone] Reason for Visit * Reason Onset Date Comments Med Refill 09/11/2025 Encounter Details Date Type Department Care Team (Late st Contact Info) Description 09/11/2025 Refill [facility] MEDICINE [address] [place] [address] Edna Norris FNP [address] [place], [place] [phone] Social History Tobacco Use Types Packs/Day Years [...] documented as of this encounter Care Teams Padder Cushion Relationship Specialty Start Date End Date Edna Norris FNP [address] [place] [address] PCP - General Family Medicine 03/02/23 Agustín Mahmood MD [address] [place] [address] [place] [address] Neurology 09/19/24 documented as of this encounter
--- OUTSIDE RECORDS SUMMARY | 2025-09-12 19:55 | XMS_ITS | Encounter Summary ---
Author Organization [employer] Address [address] [facility] [address]t [place] [address] Care Team Providers Care Plate Keeper Name Role Phone Edna Norris Primary Care Provider [phone] Agustín Mahmood MD Unavailable [phone] Reason for Visit * Reason Onset Date Comments Med Refill 10/14/2023 Encounter Details Date Type Department Care Team ([facility] st Contact Info) Description 10/14/2023 Refill [facility] MED & PEDS [address] [place] [address] Edna Norris FNP [address] [place], [place] [phone] Social History Tobacco Use Types Packs/Day Years [...] documented as of this encounter Care Teams Plate Keeper Relationship Specialty Start Date End Date Edna Norris FNP [address] [place] [address] PCP - General Family Medicine 03/02/23 Agustín Mahmood MD [address] [place] [address] [place] [address] Neurology 09/19/24 documented as of this encounter
--- OUTSIDE RECORDS SUMMARY | 2025-09-12 19:55 | XMS_ITS | Encounter Summary ---
Author Organization [employer] Address [address] [facility] [address] [place] [address] Care Team Providers Care Patient Transition Specialist Name Role Phone Edna Norris Primary Care Provider [phone] Agustín Mahmood MD Unavailable [phone] Reason for Visit * Reason Onset Date Comments Med Refill 10/17/2023 Encounter Details Date Type Department Care Team (Late st Contact Info) Description 10/17/2023 Refill [facility] MEDICINE [address] [place] [address] Edna Norris FNP [address] [place], [place] [phone] Social History Tobacco Use Types Packs/Day Years [...] documented as of this encounter Care Teams Patient Transition Specialist Relationship Specialty Start Date End Date Edna Norris FNP [address] [place] [address] PCP - General Family Medicine 03/02/23 Agustín Mahmood MD [address] [place] [address] Dr Brock [facility] [address] Neurology 09/19/24 documented as of this encounter
--- OUTSIDE RECORDS SUMMARY | 2025-09-12 19:55 | XMS_ITS | Encounter Summary ---
Author Organization [employer] Address [address] [facility] [address]t [place] [address] Care Team Providers Care Drag Down Name Role Phone Edna Norris Primary Care Provider [phone] Agustín Mahmood MD Unavailable [phone] Reason for Visit * Reason Comments Med Refill Encounter Details Date Type Department Care Team ([facility] st Contact Info) Description 09/10/2025 Refill [facility] MED & PEDS [address] [place] [address] Edna Norris FNP [address] [place], [place] [phone] Social History Tobacco Use Types Packs/Day Years [...] documented as of this encounter Care Teams Drag Down Relationship Specialty Start Date End Date Edna Norris FNP [address] [place] [address] PCP - General Family Medicine 03/02/23 Agustín Mahmood MD [address] [place] [address] [place] [address] Neurology 09/19/24 documented as of this encounter
[2025-09-12 21:00] VITALS: PULSE 77; O2SAT 98
[2025-09-12 22:43] VITALS: BP 144/58; PULSE 67; RESP 16; TEMP 36.5; O2SAT 96
[2025-09-13 00:17] VITALS: BP 146/66; PULSE 74; RESP 12; TEMP 36.4; O2SAT 97
== END 2025-09-13 00:18 | disposition home or self-care (01) ==
PROVIDERS: Emergency Provider Student in an Organized Health Care Education/Training Program; PCP Registered Nurse
DX: N39.0 Urinary tract infection, site not specified (principal); R55 Syncope and collapse; G30.9 Alzheimer's disease, unspecified; F02.80 Dementia in other diseases classified elsewhere, unspecified severity, without behavioral disturbance, psychotic disturbance, mood disturbance, and anxiety; I10 Essential (primary) hypertension; Z86.39 Personal history of other endocrine, nutritional and metabolic disease; Z79.899 Other long term (current) drug therapy
CPT/HCPCS: 36415; 80053; 81001; 81003; 83735; 84484; 85025; 85610; 87086; 87147; 93005; 96360; 99284; 99285

== ENCOUNTER → 2025-09-12 18:37 | Outpatient (BNV) | payer OTHER, SELFPAY | PROVIDERS: Emergency Provider Student in an Organized Health Care Education/Training Program; PCP Registered Nurse; Visit Provider Internal Medicine | DX: I49.3 Ventricular premature depolarization (principal) | CPT/HCPCS: 93010 ==

== ENCOUNTER 2025-10-09 13:20 | Outpatient (AMB) | payer OTHER, SELFPAY ==
--- OUTSIDE RECORDS SUMMARY | 2017-12-05 10:04 | XMS_ITS | Continuity of Care Document ---
Author Organization [facility] Address [address] [place] [address] Care Team Providers Care Coal Sampler Name Role Phone Obrien OD, Lavender Unavailable Unavailable Advance Directives Directive Yes / No Effective Date File Name No Information Encounters Encounter Description Practice Location Reason(s) For Visit Diagnoses Date Provider Providers Copied on Encounter [facility] ([facility] [address], [place], [place], [id number], [place]. [address] routine eye exam (chief complaint) No Information Obrien Lavender. [address] [facility], [address], [place], [place], [id number], [place]. tel:[phone] Family History Family Member Type Diagnosis Age At Onset No Information Payers Payer name Insurance type Covered constitution party ID Authoriza tion(s) No Information Social History Type Description Quantity Date Captured Comments Alcohol Use Details Unknown Caffeine Use Details Unknown Tobacco Use Status No Information Smoking Status No Information Sex Female Chief Complaint And Reason For Visit From encounter dated '12/05/2017 15:04'. routine eye exam (chief complaint). Description: The patient was seen on 03/17/2017 by Maninder Solo MD for a routine eye exam. No diabetic retinopathy was noted on exam OU. Next DFE recommended by 03/2018. Reason For Referral Reason For Referral No Information History Of Present Illness Encounter Date Complaint History Of Prese nt Illness routine eye exam The patient was seen on 03/17/2017 by Maninder Solo MD for a routine eye exam. No diabetic retinopathy was noted on exam OU. Next DFE recommended by 03/2018. Functional Status Date Functional Assessmen t No Information Instructions Date Instruction Additional Infor mation No Information Assessments Type Assessment Date No Information Patient Care Teams Name Effective Dates (start - stop) Status Members No Information
[2025-10-09 13:32] VITALS: BP 108/60; PULSE 65; BMI 28.1
--- NOTE | 2025-10-09 13:32 | A.OFFVIS_ITS ---
Vital Signs 10/09/25 13:32 Height 4 ft 9 in Weight 130 lb 1.164 oz BMI 28.1 BP 108/60 Blood Pressure Location Lt brachial Position Sitting Pulse 65 Pulse Source Pulse Oximeter Intake Visit Reasons: Edna Phalen/Syncope Foundation Assistant Required: Yes Foundation Assistant Services: Foundation Assistant Offered & Declined Accompanied by: Daughter Allergies Penicillins Allergy (Severe, Verified 09/12/25 18:40) Rash Medication List - Last Reconciled 10/09/25 by Jose A Garcia MD albuterol sulfate 90 mcg/actuation 2 puffs inhalation Q4H PRN albuterol sulfate 2.5 mg inhalation Q4H PRN blood pressure test kit-large As directed celecoxib 200 mg PO BID PRN diltiazem HCl ER 120 mg PO QAM dulaglutide (Trulicity) mg subcut empagliflozin (Jardiance) 25 mg PO DAILY fluticasone propionate 44 mcg/actuation (Flovent HFA) 1 puff inhalation BID glucagon 3 mg/actuation mg intranasal levothyroxine 125 mcg PO QAM melatonin 5 mg PO BEDTIME PRN multivitamin 1 tab PO DAILY rosuvastatin 10 mg PO DAILY HPI Comments Details: The patient is a 79 year old individual presenting for evaluation of two recent episodes of unresponsiveness. The first episode involved the patient's chin tightening while sitting in a recliner, accompanied by unresponsiveness. At that time, the patient's mouth could not be opened, blood sugar was 80, and HR/blood pressure was normal, prompting an ER visit where a stroke and heart attack were ruled out. A second, similar episode of unresponsiveness occurred in August, while the patient was in a recliner. During this event, vital signs were stable. Upon waking, the patient experienced nausea. Patient's daughter is a nurse and she states that she checked vital signs during these episodes and they were within normal limits. The patient has a known history of dementia, which is reportedly worsening. The patient has no known history of a heart attack. A cardiac stress test last year was normal, and an echocardiogram in June of this year showed normal heart function. [facility] Medical History (Updated 10/09/25 @ 13:51 by Jose A Garcia MD) Dementia Umbilical hernia Thyroid disease Arthritis Hypertension Surgical History History of female sterilization History of shoulder surgery History of carpal tunnel surgery Family History (Updated 10/18/23 @ 13:56 by Casi Driscoll) Mother Heart problem Other Colon cancer Social History (Updated 10/31/24 @ 10:58 by Ally Crane Lucas) Alcohol intake: never Patient Tobacco Use Status: Never used Tobacco service: No Current occupational status: retired Review of Systems Const Denies weakness ENT Reports dizziness Card Denies chest pain, Denies chest pain with activity, Reports syncope, Denies rapid heart rate, Denies pedal edema, Denies edema, Denies leg edema, Reports lightheadedness, Denies palpitations, Denies dyspnea, Denies dyspnea on exertion and Denies orthopnea Resp Denies cough, Denies dyspnea and Denies dyspnea on exertion GI Denies hematochezia and Denies change in stool character Musc Denies abnormal gait, Denies muscle cramps, Denies muscle weakness, Denies numbness, Denies radiating pain into limb and Denies tingling Neuro Denies abnormal gait, Reports dizziness, Reports syncope, Denies numbness, Denies tingling and Denies weakness Endo Denies palpitations Physical Exam Vital Signs: Last Vital Signs Pulse 65 10/09/25 13:32 BP 108/60 10/09/25 13:32 BMI result Body Mass Index 28.1 Const General: comfortable and no acute distress Orientation/consciousness: patient oriented x3 HEENT Other: Unremarkable Head: Yes normal to inspection Neck Neck: Yes normal visual inspection Chest Chest palpation & inspection: normal inspection of the chest Resp Auscultation: clear to auscultation bilaterally Cardio Palpation: normal PMI Heart sounds: S1 normal heart sound present, S2 normal heart sound present, no gallops, no murmurs and no rubs GI Palpation (GI): Soft to palpation Back/Spine/Pelvis Other: unremarkable Skin General skin exam: no rashes or lesions noted Neuro General: patient oriented x3 Extrem General: Yes normal to inspection Psych Mental Status: mental status grossly normal Assessment & Plan Assessment & Plan (1) Syncope: Code(s): R55 - Syncope and collapse Category: Medical Plan Description of episodes could be more of seizure than cardiac etiology. Less likely she has any serious bradyarrhythmia but we will do a 30 day monitor for evaluation. Otherwise, refer to neurology for seizure workup. Discussed with daughter about this and she agrees. Cardiac testing- EKG-sinus rhythm; 69/Min; cannot exclude old anterior infarct but more likely from body habitus/lead placement; normal NJ and corrected QT; PVC. Echocardiogram-LVEF 55-60%; no significant valvular findings. Myocardial perfusion imaging-normal. Discussion Notes I explained to the patient's daughter that given the history of Alzheimer's and the report of stable vital signs during the episodes of unresponsiveness, the events are more likely seizures than a cardiac issue. I recommended a referral to the neurologist for a formal seizure evaluation, which will likely include an EEG to check the brain's electrical activity. To be safe and rule out a slow heart rate as a potential cause, I will also order a heart monitor for the patient to wear for a month, despite the previous normal cardiac workup. We will schedule a follow-up visit after these evaluations are complete. Patient was informed and verbally consented to the use of an ambient scribe for clinic note documentation during this visit. Orders: Orders ECG 30 day event monitor Today Jose A Garcia MD R55 - Syncope and collapse Referrals Neurology Referral Jose A Garcia MD R55 - Syncope and collapse Medications: Changed From celecoxib 200 mg PO BID 60 caps 3RF To celecoxib 200 mg PO BID PRN Ta-Polly Diop PA-C Patient Instructions: - A referral will be made to a neurologist to evaluate for possible seizures. - You will be given a heart monitor to wear for one month to check your heart rhythm. - Please schedule a follow-up appointment to discuss the results of these tests. Coding Level of Care Code New Pt Level 4 (14037) Complex visit Add On G2211 Diagnoses Syncope R55
--- OUTSIDE RECORDS SUMMARY | 2025-10-09 16:29 | XMS_ITS | Data Portability ---
Author Organization [employer] [facility] Address [address] [place] [id number] Care Team Providers Care Corrective Therapy Aide Teacher Name Role Phone HIM CCA OTHER Unavailable Primary Care Provider Assessment Encounter Date Assessment Date Assessment LastModified by Organization Details LastModified Time 09/12/2025 09/12/2025 As noted, we were called to see this patient regarding concerns of syncope. Evaluation in the field was performed by my surgical attendant colleague, as noted above, I provided real-time [...] ED referral [facility] 09/12/2025 18:27:20 Plan of Treatment Reminders Order Date Submit Date Provider Last Modified By Organization Details Last Modified Time Details Appointments None record ed. Lab None record ed. Referral None record ed. Procedures None record ed. Surgeries None record ed. Imaging None record ed. Medication Orders None record ed. Patient TargetsNo targets recorded. Patient InstructionsNo instructions recorded. Reason for Referral None Reported. Medical Equipment None Reported. Allergies Allergen ID Allergen Name Allergen Category Reaction Reaction Severity Criticality Documentation Date Start Date Code Code System Note Provider Name and Address Organization Details Recorded Time 22001 Product containin g penicilli n (product) medicatio n Not available Not available Not available 09/12/2025 30014 8001 SNOMED Not Available [employer] - production 17:00:41 [...] Vitals Date Recorded Body temperature Oxygen saturation Respiratory rate Heart rate Systolic And Diastolic Provider Name and Address Organization Details Last Updated DateTime 98.2 [degF] 99 % 26 /min 64 /min 134/71 [...] ICD10 Code Diagnosis IMO Codes Diagnosis Note [id number] Lola Hurd MD [facility] ED Medical [address] [phone] 09/12/2025 17:52:59 09/12/2025 18:58:03 Syncope symptom [id number] R55 [id number] Health Concerns Section Related Observation LastModified by Organization Detai ls LastModified Time None Recorded Concern Status LastModified by Organization Details LastModified Time None Recorded Advance Directives Directive None Recorded Payers Insurance Date Sequence Insurance Name Policy Number Policy Moon Covered Member ID Moon Member ID Guarantor Name 09/12/2025 1 [facility] - DOS ON OR AFTER 2023 - DUAL ELIGIBLE - [facility] OPTIONS AND ONE CARE (MEDICARE REPLACEMENT/ADV ANTAGE - HMO) Vida Amado [id number] Vida Amado Notes Date Note Type Note [...] Hypothyroidism, Osteoarthritis PMH Reviewed at 09/12/2025 - 17:00 Allergies Reviewed at 09/12/2025 - : Comments: [...] signs of when to seek emergency care. Refuge Worker Organization Information for [facility] [employer] Business [employer] Name: [employer] Address: [address] [place] [address], Cycle Manager: Bossman Obrien MD CLIA No.: [id number] Refuge Worker POC Test Results from [facility] - ALS EKG (17:36:12) EKG test performed. Attachments uploaded as part of this test result can be found under Documents section. EKG (17:36:12) - This test has been updated by the surgical attendant, Matty Lorenzo at (09/12/2025 18:03:30). The changes are marked in bold. EKG test performed. Attachments uploaded as part of this test result can be found under Documents section. .................... .................... .................... .................... .................... .................... .................... . Refuge Worker Note From Matty Lorenzo: Dispatched to above [...] time. 12 lead EKG showed sinus rhythm. [facility] [place], spoke with Dr. Hurd, advised of patient complaints an exam findings. [facility] [place] transport to ER for further evaluation and work up. Family agrees with this plan. 911 called. [facility] responded. Verbal report given to [facility] Refuge Worker, took over patient care will transport to [facility]. SC8 clear. EOR. .................... .................... .................... .................... .................... .................... .................... . [facility] Consulted: Lola Hurd .................... .................... .................... .................... .................... .................... .................... . Disposition: Fulfilled Lola Hurd MD [address] [facility],[address], [place], [address], [employer] [facility] 09/12/2025 18:27:41 OBGyn Episode No OBEpisode recorded.
--- OUTSIDE RECORDS SUMMARY | 2025-10-09 16:29 | XMS_ITS | Encounter Summary ---
Author Organization [employer] Address [address] [facility] 7t [place] [address] Care Team Providers Care Bariatric Nurse Name Role Phone Edna Norris Primary Care Provider [phone] Agustín Mahmood MD Unavailable [phone] Encounter Details Date Type Department Care Team ([facility] st Contact Info) Description 04/25/2024 Orders Only [facility] & PEDS [address] [place] [address] Edna Norris FNP [address] [place] [address] Hyperkalemia (Primary Dx) Social History Tobacco Use [...] EDT) Sodium 137 135 - 145 mmol/L [facility] Potassium 4.7 3.3 - 5.1 mmol/L [facility] Chloride 103 96 - 108 mmol/L [facility] Carbon Dioxide 24 22 - 29 mmol/L [facility] Anion Gap 15 12 - 20 [facility] Urea Nitrogen (BUN) 11 9 - 16 mg/dL [facility] Creatinine, Serum 0.76 0.5 - 1.4 mg/dL [facility] Estimated Glomerular Filt Rate >60 [facility] Comment:NOTE: For -Am erican individuals, multiply the result by 1.210.Chronic Kidney Disease: Estimated GFR < 60 mL/min/1.43a7Prdlae Kidney Disease: Estimated GFR < 15 mL/min/1.73m2 Glucose 183(H) 60 - 115 mg/dL [facility] Calcium 9.7 8.4 - 10.2 mg/dL [facility] Blood Venous blood specimen / Unknown 05/10/2024 9:53 AM EDT 05/10/2024 11:17 AM EDT us Edna MARCUS LAB BLOOD ORDERABLES Final Res ult [facility] [address] [place] [address] [phone] documented in this encounter Visit Diagnoses Diagnosis Hyperkalemia- Primary Hyperpotassemia documented in this encounter Additional Health Concerns Assessment Noted Time PHQ-9 Depression Total Score: 0 03/14/20 9:59 AM EDT documented as of this encounter Care Teams Bariatric Nurse Relationship Specialty Start Date End Date Edna Norris FNP [address] [place] [address] PCP - General Family Medicine 03/02/23 Agustín Mahmood MD [address] [place] [address] [place] [address] Neurology 09/19/24 documented as of this encounter
--- OUTSIDE RECORDS SUMMARY | 2025-10-09 16:29 | XMS_ITS | Encounter Summary ---
Author Organization [employer] Address [address] [facility] 7[address] [place] [address] Care Team Providers Care Railroad Detective Name Role Phone Edna Norris Primary Care Provider [phone] Agustín Mahmood MD Unavailable [phone] Reason for Visit * Reason Onset Date Comments Med Refill 10/17/2023 Encounter Details Date Type Department Care Team ([facility] st Contact Info) Description 10/17/2023 Refill [facility] PED[facility] [address] [place] [address] Edna Norris FNP [address] [place], [place] [phone] Social History Tobacco Use Types Packs/Day Years [...] documented as of this encounter Care Teams Railroad Detective Relationship Specialty Start Date End Date Edna Norris FNP [address] [place] [address] PCP - General Family Medicine 03/02/23 Agustín Mahmood MD [address] [place] [address] [place] [address] Neurology 09/19/24 documented as of this encounter
--- OUTSIDE RECORDS SUMMARY | 2025-10-09 16:29 | XMS_ITS | Encounter Summary ---
Author Organization [employer] Address [address] [facility] 7[address] [place] [address] Care Team Providers Care Electrical Engineering Designer Name Role Phone Edna Norris Primary Care Provider [phone] Agustín Mahmood MD Unavailable [phone] Reason for Referral * Consultation (Routine) - Closed Specialty Diagnoses / Procedures Referred By Contalexis t Referred To Contact Pharmacy Diagnoses Type 2 diabetes mellitus without complication, with long-term current use of insulin (HCC) Hypothyroidism, unspecified type Erika Motta MD [address] [place] [address] Phone: tel: fax: Referral ID Status Reason Start Date Expiration Date V isits Requested Visits Authorized [id number] Closed Continuity of Care 12/12/2024 12/12/2025 6 6 Scheduling Instructions Ongoing [facility] care Encounter Details Date Type Department Care Team (Late st Contact Info) Description 12/12/2024 Orders Only [facility] [address] [place], [place] [phone] Erika Motta MD [address] [place], [place] [phone] Type 2 diabetes mellitus without complication, with [...] complication, with long-term current use of insulin ([facility]) Hypothyroidism, unspecified type Ordered: 12/12/2024 documented as [...] documented as of this encounter Care Teams Electrical Engineering Designer Relationship Specialty Start Date End Date Edna Norris FNP [address] [place] [phone] PCP - General Family Medicine 03/02/23 Agustín Mahmood MD [address] [place] [address] [place] [address] Neurology 09/19/24 documented as of this encounter
--- OUTSIDE RECORDS SUMMARY | 2025-10-09 16:29 | XMS_ITS | Encounter Summary ---
Author Organization [employer] Address [address] [facility] [address] [place] [address] Care Team Providers Care Hall Monitor Name Role Phone Edna Norris Primary Care Provider Agustín Mahmood MD Unavailable [phone] Reason for Visit * Reason Onset Date Comments Med Refill 10/17/2023 Encounter Details Date Type Department Care Team (Late st Contact Info) Description 10/17/2023 Refill [facility] [address] [place] [address] Edna Norris FNP [address] [place], [place] [phone] Social History Tobacco Use Types Packs/Day Years [...] documented as of this encounter Care Teams Hall Monitor Relationship Specialty Start Date End Date Edna Norris FNP [address] [place] [address] PCP - General Family Medicine 03/02/23 Agustín Mahmood MD [address] [place] [address] Dr Brock [facility] [place] [address] Neurology 09/19/24 documented as of this encounter
--- OUTSIDE RECORDS SUMMARY | 2025-10-09 16:29 | XMS_ITS | Encounter Summary ---
Author Organization [employer] Address [address] [facility] [address] [place] [address] Care Team Providers Care Mill Order Scheduler Name Role Phone Edna Norris Primary Care Provider [phone] Agustín Mahmood MD Unavailable [phone] Reason for Visit * Reason Onset Date Comments Med Refill 09/11/2025 Encounter Details Date Type Department Care Team (Late st Contact Info) Description 09/11/2025 Refill [facility] [address] [place] [address] Edna Norris FNP [address] [place], [place] [phone] Social History Tobacco Use Types Packs/Day Years [...] documented as of this encounter Care Teams Mill Order Scheduler Relationship Specialty Start Date End Date Edna Norris FNP [address] [place] [address] PCP - General Family Medicine 03/02/23 Agustín Mahmood MD [address] [place] [address] [place] [address] Neurology 09/19/24 documented as of this encounter
--- OUTSIDE RECORDS SUMMARY | 2025-10-09 16:29 | XMS_ITS | Clinical Summary ---
Author Organization [employer] Address [address] [facility] [address] [place] [address] Care Team Providers Care Manager Aviation Name Role Phone Jr Edna MARCUS Primary Care Provider [phone] Agustín Mahmood MD Unavailable Allergies Active Allergy [...] Other route 3 times daily. 90 each 5 8:39 AM EST 11/26/19 25 2025 Active Lancets (OneTouch Delica) lancets 30GIndications: Type 2 diabetes mellitus without complication, with long-term current use of insulin (HCC) 1 each by Other route 3 times daily. 90 each 11 5 8:39 AM EST 11/26/19 25 2025 Active Multiple Vitamin (Multivitamin) tablet TAKE 1 TABLET BY MOUTH EVERYDAY AT NOON 90 tablet 3 11/28/19 25 Active fluticasone furoate (Arnuity Ellipta) 100 MCG/ACT inhaler Inhale 1 puff Once per day. Rinse mouth with water after use to reduce aftertaste and incidence of candidiasis. Do not swallow. 1 each 5 8:39 AM EST 02/17/202025 Active levothyroxine (Synthroid, Levoxyl) 75 MCG tabletIndicatio [...] BEDTIME NEEDED FOR SLEEP 90 tablet 3 5 8:39 AM EST 06/03/20 25 Active pantoprazole (ProtoNix) 40 MG EC tablet TAKE 1 TABLET BY MOUTH EVERY DAY BEFORE MEALS NEEDED FOR HEARTBURN. DO NOT BREAK, CRUSH, DISSOLVE OR CHEW. 90 tablet 1 5 8:39 AM EST 06/17/20 25 Active Dulaglutide (Trulicity) 0.75 MG/0.5ML solution auto-injectorIn dications:Type 2 diabetes mellitus without complication, with long-term current use of insulin (HCC) Inject 0.75 mg under the skin 1 (one) time per week. 2 mL 12:32 PM EST 08/14/202025 Active rosuvastatin (Crestor) 10 MG tablet TAKE 1 TABLET BY MOUTH AT BEDTIME 90 tablet 3 5 8:39 AM EST 09/11/20 25 Active empagliflozin (Jardiance) 25 MG Take 1 tablet (25 mg) by mouth Once per day. 90 tablet 1 5 8:39 AM EST 09/11/20 25 2025 Active clotrimazole (Lotrimin) 1 % cream Apply topically 2 times daily for 28 days. 30 g 2 09/11/20 25 2024 Active glucagon (Baqsimi) 3 MG/DOSE nasal powder Administer 3 mg into affected nostril(s) 1 (one) time if needed for low blood sugar. (Blood sugar less than 70 or if symptomatic and unable to tolerate PO) 1 each 1 09/18/20 25 2025 Active rosuvastatin (Crestor) 10 MG tablet TAKE 1 TABLET BY MOUTH AT BEDTIME (for cholesterol) 90 tablet 3 09/28/20 24 2024 Discontinued empagliflozin-m etFORMIN ER (Synjardy XR) 25-1000 MG 24 hr tabletIndicatio ns:Type 2 diabetes mellitus without complication, with long-term current use of insulin (HCC) Take 1 tablet by mouth with breakfast. 90 tablet 3 02/28/20 25 2024 Discontinued(T herapy completed) mupirocin (Bactroban) 2 % ointment Apply topically 2 times daily for 14 days. 22 g 09/11/20 25 2024 Active Problems Problem Noted Date Diagnosed Date Osteoarthritis of hip 09/19/2024 Overview (09/19/2024): XR right hip Aug 2024: no acute fx or dislocation. 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 Sep 2024: reporting discomfort in left hip - referred to [facility] for further eval 09/19/24 Cervical spondylosis [...] Continue with topical supportive measures Oct 2024: [facility] consult, injection declined Follow up for physical therapy referral if interested in future Assessment & Plan (11/28/2024 12:55 PM EST): XR completed Aug 2024 c/w degenerative changes Continue with topical supportive measures Oct 2024: [facility] consult, injection declined Plan for physical therapy Assessment & Plan (09/19/2024 3:36 PM EST): Check XR Continue with topical supportive measures Referral to Ortho placed 09/19/24 Assessment & Plan (06/13/2024 7:34 PM EDT): Check XR Continue with topical supportive measures Consider physical therapy referral Healthcare maintenance 10/16/2023 Overview (02/27/2025): Optometry: 11/26/2024: RUDY @ [facility]. Dental: referral to [facility] Dental 03/14/24 Alzheimer disease 07/01/2023 [...] 7:40 PM EDT): Interested in eval with [facility] Neuro, referral placed. Encouraged to continue [...] episode. No known history of CVA or [place] ED precautions Cardiology evaluation by [facility] Cards - Dr. Garcia January 2024: Stress [...] episode. No known history of CVA or [place] Reports intermittent SOB - possibly related to [...] Encounters Date Type Department Care Team Description 09/13/2025 Telephone [facility] [address] [place] [address] Edna Norris, TABLEAU ADMINISTRATOR Referral 09/11/2025 10:30 AM EDT Office Visit [facility] [address] [place] [address] Iselaliat Edna, TABLEAU ADMINISTRATOR Type 2 diabetes mellitus without complication, with long-term current use of insulin ([facility]) (Primary Dx); Hyperkalemia; Alzheimer disease ([facility]); Skin lesion 09/11/2025 Refill [facility] [address] [place] [address] Edna Norris, TABLEAU ADMINISTRATOR 09/11/2025 Refill [facility] [address] [place] [address] IselaEdna josue, TABLEAU ADMINISTRATOR Type 2 diabetes mellitus without complication, with long-term current use of insulin ([facility]) 09/11/2025 Travel 09/10/2025 Refill [facility] [address] [place] [address] Edna Norris, TABLEAU ADMINISTRATOR 09/09/2025 Travel 09/04/2025 Orders Only [facility] External Provider, [facility] 08/28/2025 Results Follow-Up [facility] [address] [place] [address] Phalen Edna, TABLEAU ADMINISTRATOR Albumin, Random Urine W/Creatinine, Lipid Panel, Standard, Comprehensive Metabolic Panel, Additional followed-up results: 2 08/26/2025 Travel 08/12/2025 Refill [facility] [address] [place] [address] Iselaliat Edna, TABLEAU ADMINISTRATOR Type 2 diabetes mellitus without complication, with long-term current use of insulin ([facility]) from Last 3 Months Immunizations Immunization Administration [...] 08/27/2026 08/27/2025, 04/14, 03/03/2023 COVID-19 Vaccine ( season) 2026 Postponed from 07/15/2025 (Patient Refused) [...] with long-term current use of insulin (HCC) POCT GLUCOSE Routine 09/11/2025 10:54 AM EDT Type 2 diabetes mellitus without complication, with long-term current use of insulin (HCC) BASIC METABOLIC PANEL Routine 09/10/2025 9:32 AM [...] ,027 Blood 09/11/2025 10:5 5 AM EDT [facility] POINT OF CARE TEST ENTER/EDIT ORDERABLES Final Result * POCT Glucose (09/11/2025 10:54 AM EDT) Glucose Blood, POC 128 60 - 200 mg/dL QC Media Lot # [id number] Lot# Expiration Date 3,026 Blood Capillary blood specimen / Unknown 09/11/2025 10:54 AM EDT [facility] POINT OF [facility] ENTER/EDIT ORDERABLES Final Result * TSH with Reflex to Free T4 (09/10/2025 9:32 AM EDT) Only the most recent of2 resultswithin the time period is included. TSH reflex Free T4 1.75 0.32 - 4.0 uIU/mL [facility] Blood 09/10/2025 9:32 AM EDT 09/10/2025 11:13 AM EDT us Edna Norris TABLEAU ADMINISTRATOR LAB BLOOD ORDERABLES Final Res ult Performing Organization Address [facility]/ZIP Co de Phone Number [facility] [address] [place] [address] [phone] * Basic Metabolic Panel (09/10/2025 9:32 AM EDT) Sodium 139 135 - 145 mmol/L [facility] Potassium 4.7 3.3 - 5.1 mmol/L [facility] Chloride 107 96 - 108 mmol/L [facility] Carbon Dioxide 25 22 - 29 mmol/L [facility] Anion Gap 12 12 - 20 [facility] Urea Nitrogen (BUN) 12 9 - 16 mg/dL [facility] Creatinine, Serum 0.73 0.5 - 1.4 mg/dL [facility] Estimated Glomerular Filt Rate >60 [facility] Comment:Chronic Kidney Disea se: Estimated GFR < 60 mL/min/1.87s1Fpbcxq Kidney Disease: Estimated GFR < 15 mL/min/1.73m2 Glucose 95 60 - 115 mg/dL [facility] Calcium 9.6 8.4 - 10.2 mg/dL [facility] Blood Venous blood specimen / Unknown 09/10/2025 9:32 AM EDT 09/10/2025 11:13 AM EDT Edna Norris TABLEAU ADMINISTRATOR LAB BLOOD ORDERABLES Final Res ult Performing Organization Address [facility] Co de Phone Number [facility] [address] [place] [address] [phone] * CT Head w/o Contrast (09/04/2025 10:04 PM EDT) Anatomical Region Laterality Modality Head, Neck Computed Tomogra phy 09/04/2025 10:0 4 PM EDT Narrative 09/04/2025 10:06 PM EDT [address] [address] [address] Scan Report Signed Patient: Vida Amado MR#: [id number] : 1945 Acct:[id number] Age/Sex: 79 / F ADM Date: 09/04/25 Loc: HO.ED Attending Dr: Ordering Physician: Birdie John DO Date of Service: 09/04/25 Procedure(s): CT head/brain wo IV con Accession Number(s): [id number] cc: Birdie John DO; Edna Norris Report Number: [id number]: Total DLP = 534.00 mGy-cm Reason for [...] in OV> 09/04/252205 DD/ 03 TD/TT: 09/04/252203 Checkout Operator: Procedure Note Donotuseinterpreter, Image - 09/04/[address] [address] [address] Scan Report Signed Patient: Dilcia AmadoR#: [id number] : 5Acct:[id number] Age/Sex: 79 / FADM Date: 09/04/25 Loc: .ED Attending Dr: Ordering Physician: Birdie John DO Date of Service: 09/04/25 Procedure(s): CT head/brain wo IV con Accession Number(s): [id number] cc: Birdie John DO; Edna NorrisP Report Number: [id number]: Total DLP = 534.00 mGy-cm Reason for [...] in OV> 09/04/252205 DD/ 03 TD/TT: 09/04/252203 Checkout Operator: [facility] External Provider IMG CT PROCEDURES Edited Result - Final * Albumin, Random Urine W/Creatinine (08/27/2025 8:42 AM EDT) Creatinine, Urine 128.42 mg/dL [facility] Microalbumin Urine 13.0 mg/L [facility] Microalbum Creatinine Ratio Ur 10.1 <30 ug/mg cr [facility] Comment:Albumin/Creatinine R atio Reference Ranges: Normal: < 30 ug/mg creatinine Microalbuminuria: 30 - 300 ug/mg creatinineClinical Albuminuria: > 300 ug/mg creatinine Urine 08/27/2025 8:42 AM EDT 08/27/2025 11:23 AM EDT Edna Norris [facility] URINE ORDERABLES Final Res ult [facility] [address] [place] [phone] * CBC auto differential (08/27/2025 8:42 AM EDT) White Blood Count 6.3 4.8 - 10.8 X10*3/uL [facility] Red Blood Count 5.06 4.20 - 5.50 X10*6/uL [facility] Hemoglobin 13.9 12.0 - 16.0 g/dl [facility] Hematocrit 43.6 37.0 - 47.0 % [facility] Mean Corpuscular Volume 86.2 80.0 - 98.0 fL [facility] Mean Corpuscular Hemoglobin 27.5 27.0 - 33.0 pg [facility] Mean Corpuscular HGB Conc 31.9 31.0 - 35.0 g/dl [facility] Red Cell Distribution Width 13.9 11.0 - 16.0 % [facility] Platelet Count 360 160 - 400 X10*3/uL [facility] Mean Platelet Volume 9.6 9.4 - 12.3 fL [facility] Neutrophils Percent Auto 58.5 45 - 73 % [facility] Imm Gran Pct Auto 0.3 0.0 - 0.4 % [facility] Lymphocytes Percent Auto 31.2 20 - 40 % [facility] Monocytes Percent Auto 6.5 2 - 11 % [facility] Eosinophils Percent Auto 2.7 0 - 4 % [facility] Basophils Percent Auto 0.8 0 - 2 % [facility] NRBC Pct Auto 0.0 0.0 - 0.2 /100WBC [facility] Neutrophils Absolute Auto 3.7 2.0 - 8.3 x10*3/uL [facility] Imm Gran Abs Auto 0.02 0.00 - 0.03 X10*3/uL [facility] Lymphocytes Absolute Auto 2.0 1.2 - 4.9 X10*3/uL [facility] Monocytes Absolute Auto 0.4 0.1 - 1.2 X10*3/uL [facility] Eosinophils Absolute Auto 0.2 0.0 - 0.4 X10*3/uL [facility] Basophils Absolute Auto 0.1 0.0 - 0.2 X10*3/uL [facility] NRBC Abs Auto 0.000 0.0 - 0.012 X10*3/uL [facility] Blood Venous blood specimen / Unknown 08/27/2025 8:42 AM EDT 08/27/2025 11:25 AM EDT us Edna Norris TABLEAU ADMINISTRATOR LAB BLOOD ORDERABLES Final Res ult Performing Organization Address [facility] Co de Phone Number [facility] [address] [place] [address] [phone] * Vitamin B12 (08/27/2025 8:42 AM EDT) Vitamin B12 208 200 - 900 pg/mL [facility] Comment:NORMAL 200-900 PG/ML INDETERMINATE 160-199 PG/ML DEFICIENT < 160 PG/ML Blood Venous blood specimen / Unknown 08/27/2025 8:42 AM EDT 08/27/2025 11:25 AM EDT us Edna Norris TABLEAU ADMINISTRATOR LAB BLOOD ORDERABLES Final Res ult Performing Organization Address [facility] de Phone Number [facility] [address] [place] [phone] * Lipid Panel, Standard (08/27/2025 8:42 AM EDT) Triglycerides 129 <150 mg/dL [facility] Comment:Desirable Triglyceri de: less than 150 mg/dLBorderline High Triglyceride 150-199 mg/dLHigh Triglyceride: 200-499 mg/dLVery High Triglyceride: greater than or equal to 5OO mg/dL Cholesterol 145 <200 mg/dL [facility] Comment:Desirable Cholestero l: less than 200 mg/dLBorderline High Cholesterol: 200-239 mg/dLHigh Cholesterol: greater than 239 mg/dL LDL Cholesterol Calculated 62 <100 mg/dL [facility] Comment:Desirable LDL: less than 100 mg/dLNear Optimal/Above Optimal LDL: 110- 129 mg/dLBorderline High LDL: 130-159 mg/dLHigh LDL: 160-189 mg/dLVery High LDL: greater than or equal to 190 mg/dL HDL Cholesterol 58 >40 mg/dL [facility] Comment:Desirable HDL: great er than 40 mg/dL Note: This HDL assay may give artificially low results in patients with liver disease. Blood Venous blood specimen / Unknown 08/27/2025 8:42 AM EDT 08/27/2025 11:25 AM EDT us Edna Norris TABLEAU ADMINISTRATOR LAB BLOOD ORDERABLES Final Res ult [facility] [address] [place] [phone] * (ABNORMAL) Comprehensive Metabolic Panel (08/27/2025 8:42 AM EDT) Sodium 141 135 - 145 mmol/L [facility] Potassium 5.5(H) 3.3 - 5.1 mmol/L [facility] Chloride 108 96 - 108 mmol/L [facility] Carbon Dioxide 25 22 - 29 mmol/L [facility] Anion Gap 14 12 - 20 [facility] Urea Nitrogen (BUN) 13 9 - 16 mg/dL [facility] Creatinine, Serum 0.80 0.5 - 1.4 mg/dL [facility] Estimated Glomerular Filt Rate >60 [facility] Comment:Chronic Kidney Disea se: Estimated GFR < 60 mL/min/1.36w6Pmqijl Kidney Disease: Estimated GFR < 15 mL/min/1.73m2 Glucose 114 60 - 115 mg/dL [facility] Calcium 9.8 8.4 - 10.2 mg/dL [facility] Bilirubin, Total 0.3 0.0 - 1.0 mg/dL [facility] Aspartate Amino Transferase 21 5 - 31 U/L [facility] Alanine Aminotransferase 6 0 - 31 U/L [facility] Total Protein 7.5 6.5 - 8.0 g/dL [facility] Albumin Level 4.4 3.5 - 5.0 g/dL [facility] Alkaline Phosphatase 67 39 - 117 U/L [facility] Blood Venous blood specimen / Unknown 08/27/2025 8:42 AM EDT 08/27/2025 11:25 AM EDT Edna Norris TABLEAU ADMINISTRATOR LAB BLOOD ORDERABLES Final Res ult Performing Organization Address City/[facility]/ZIP Co de Phone Number [facility] [address] [place] [address] [phone] * Hepatitis C Antibody with Reflex to HCV, RNA, Quantitative, Real-Time PCR (03/03/2023 9:58 AM EDT) Hepatitis C Antibody NON-REACT SYLVIE NON-REACT SYLVIE [facility] Index 0.08 <1.00 [facility] Comment: HCV antibody was non-reactive. There is no laboratory evidence of HCV infection. In most cases, no further action is required. However, if recent HCV exposure is suspected, a test for HCV RNA (test code 92946) is suggested. For additional information please refer to http://education.[employer]/faq/YMR41z1 (This link is being provided for informational/ educational purposes only.) Blood Venous blood specimen / Unknown 03/03/2023 9:58 AM EDT 03/03/2023 9:59 AM EDT Narrative [facility] - 03/07/2023 5:30 PM EDT FASTING:NO FASTING: NO Edna Norris TABLEAU ADMINISTRATOR LAB BLOOD ORDERABLES Final Res ult Performing Organization Address [facility] Co de Phone Number [facility] [address], [place] [address] [facility] [address] [place] [address] from Last 3 Months or Most Recently Relevant to Health Maintenance Insurance [facility] (HMO D-SNP) KATIE RUSH [id number] Care Teams Manager Aviation Relationship Specialty Start Date End Date Edna Norris FNP [address] [place] [phone] PCP - General Family Medicine 03/02/23 Agustín Mahmood MD [address] [place] [address] [place] [address] Neurology 09/19/24
--- OUTSIDE RECORDS SUMMARY | 2025-10-09 16:29 | XMS_ITS | Encounter Summary ---
Author Organization [employer] Address [address] [facility] [address] [place] [address] Care Team Providers Care Mechanical Intern Name Role Phone Edna Norris Primary Care Provider [phone] Agustín Mahmood MD Unavailable [phone] Reason for Visit * Reason Comments Med Refill Encounter Details Date Type Department Care Team ([facility] st Contact Info) Description 12/12/2023 Refill [facility] [address] [place] [address] Edna Norris FNP [address] [place], [place] [phone] Social History Tobacco Use Types Packs/Day Years [...] documented as of this encounter Care Teams Mechanical Intern Relationship Specialty Start Date End Date Edna Norris FNP [address] [place] [phone] PCP - General Family Medicine 03/02/23 Agustín Mahmood MD [address] [place] [address] [place] [address] Neurology 09/19/24 documented as of this encounter
--- OUTSIDE RECORDS SUMMARY | 2025-10-09 16:29 | XMS_ITS | Encounter Summary ---
Author Organization [employer] Address [address] [facility] [address] [place] [address] Care Team Providers Care Manager Radiation Name Role Phone Edna Norris Primary Care Provider [phone] Agustín Mahmood MD Unavailable [phone] Reason for Visit * Reason Onset Date Comments Med Refill 10/14/2023 Encounter Details Date Type Department Care Team ([facility] st Contact Info) Description 10/14/2023 Refill [facility] [address] [place] [address] Edna Norris FNP [address] [place], [place] [phone] Social History Tobacco Use Types Packs/Day Years [...] documented as of this encounter Care Teams Manager Radiation Relationship Specialty Start Date End Date Edna Norris FNP [address] [place] [address] PCP - General Family Medicine 03/02/23 Agustín Mahmood MD [address] [place] [address] [place] [address] Neurology 09/19/24 documented as of this encounter
--- OUTSIDE RECORDS SUMMARY | 2025-10-09 16:29 | XMS_ITS | Continuity of Care Document ---
Author Organization [employer] [facility] Address [address] [place] [phone] Care Team Providers Care Director Of Ancillary Services Name Role Phone HIM [facility] OTHER Unavailable Primary Care Provider Assessment Encounter Date Assessment Date Assessment LastModified by Organization Details LastModified Time 09/12/2025 09/12/2025 As noted, we were called to see this patient regarding concerns of syncope. Evaluation in the field was performed by my roofing supervisor colleague, as noted above, I provided real-time [...] ED referral [facility] 09/12/2025 18:27:20 Plan of [...] Name and Address Organization Details Recorded Time 27995 Product containin g penicilli n (product) medicatio n Not available Not available Not available 09/12/2025 520[address] 8001 SNOMED Not Available [employer] - production [...] ICD10 Code Diagnosis IMO Codes Diagnosis Note [id number] Lola Hurd MD [facility] Medical [address] [phone] 09/12/2025 17:52:59 09/12/2025 18:58:03 Syncope symptom [id number] Health Concerns Section Related Observation LastModified by Organization Detai ls LastModified Time None Recorded Concern Status LastModified by Organization Details LastModified Time None Recorded Payers Encounter Date Sequence Insurance Name Policy Number Policy Moon Covered Member ID Moon Member ID Guarantor Name 09/12/2025 1 [facility] - DOS ON OR AFTER 2023 - DUAL ELIGIBLE - [employer] OPT[employer] AND ONE C[employer] (MEDICARE REPLACEMENT/ADV ANTAGE - HMO) Vida Amado [id number] Vida Amado Notes Date Note Type Note [...] signs of when to seek emergency care. Radiology Specialist Organization Information for [facility] Business Legal Name: [employer]. Address: [address] [place] [address], Sock Lining Examiner: Bossman Obrien MD CLIA No.: [id number] Radiology Specialist POC Test Results from [facility] - ALS EKG (17:36:12) EKG test performed. Attachments uploaded as part of this test result can be found under Documents section. EKG (17:36:12) - This test has been updated by the roofing supervisor, Matty Lorenzo at (09/12/2025 18:03:30). The changes are marked in bold. EKG test performed. Attachments uploaded as part of this test result can be found under Documents section. .................... .................... .................... .................... .................... .................... .................... . Radiology Specialist Note From [facility]: Dispatched to above [...] time. 12 lead EKG showed sinus rhythm. [facility] contacted, spoke with Dr. Hurd, advised of patient complaints an exam findings. [facility] recommends transport to ER for further evaluation and work up. Family agrees with this plan. 911 called. [facility] responded. Verbal report given to Dieter Radiology Specialist, took over patient care will transport to [facility]. SC8 clear. EOR. .................... .................... .................... .................... .................... .................... .................... . [facility] Consulted: Lola Hurd .................... .................... .................... .................... .................... .................... .................... . Disposition: Fulfilled Lola Hurd MD [address] [place] [address],[address], [place], [address], [employer] 09/12/2025 18:27:41 OBGyn Episode No OBEpisode recorded.
== END 2025-10-09 13:55 | disposition home or self-care (01) ==
LOC: HO.HCS 13:21
PROVIDERS: PCP Registered Nurse; Visit Provider Internal Medicine
DX: R55 Syncope and collapse (principal)
CPT/HCPCS: 99214; G2211

== ENCOUNTER → 2025-10-09 13:20 | Outpatient (BNVA) | payer OTHER, SELFPAY | PROVIDERS: PCP Registered Nurse; Visit Provider Internal Medicine | DX: R55 Syncope and collapse (principal) | CPT/HCPCS: 99212 ==

== ENCOUNTER → 2025-10-17 13:50 | Outpatient (REF) | payer OTHER, SELFPAY | LOC: HO.CARD 13:50 | PROVIDERS: PCP Registered Nurse; Visit Provider Internal Medicine | DX: R55 Syncope and collapse (principal) | CPT/HCPCS: 93270 ==

== ENCOUNTER → 2025-10-17 13:55 | Outpatient (BNV) | payer OTHER, SELFPAY | PROVIDERS: PCP Registered Nurse; Visit Provider Internal Medicine Cardiovascular Disease | DX: R55 Syncope and collapse (principal) | CPT/HCPCS: 93272 ==